=== PATIENT | male | born 1940 | race Caucasian/White ===

== ENCOUNTER 2019-10-05 11:30 | Outpatient (CLI) | payer OTHER, SELFPAY ==
[2019-10-05 12:15] LABS: Alanine Aminotransferase 26 U/L (4-50); Albumin Level 4.3 g/dL (3.5-5.1); Alkaline Phosphatase 78 U/L (38-126); Aspartate Amino Transferase 26 U/L (17-59); Bilirubin,Total 0.5 mg/dL (0.2-1.3); Blood Urea Nitrogen 22 mg/dL (9-20); Calcium 8.8 mg/dL (8.4-10.2); Carbon Dioxide 27 mmol/L (22-30); Chloride 103 mmol/L (98-107); Estimated Glomerular Filt Rate 53; Glucose 125 mg/dL (75-110); Potassium 4.5 mmol/L (3.4-5.0); Sodium 137 mmol/L (137-145)
[2019-10-05 12:59] LABS: Hemoglobin A1C 7.2 % (<5.7)
== END 2019-10-05 11:31 | disposition home or self-care (01) ==
PROVIDERS: PCP Internal Medicine; Visit Provider Nurse Practitioner
DX: R73.02 Impaired glucose tolerance (oral) (principal); N18.3 Chronic kidney disease, stage 3 (moderate)
CPT/HCPCS: 36415; 80053; 83036

== ENCOUNTER 2019-10-07 13:43 | Outpatient (CLI) | payer OTHER, SELFPAY ==
--- NOTE | ~2019-10-07 | CT_ITS ---
EXAMINATION:CT chest wo con DATE: 10/07/2019 14:34 INDICATION: Contact with and suspected exposure to asbestos. Former smoker. TECHNIQUE: Computed tomography (CT) of the chest was performed without intravenous contrast. Automate d exposure control and iterative reconstruction technique were employed. The dose-length product (DLP ) was 174.95 mGy-cm. COMPARISON: CT abdomen and pelvis 06/10/2013 FINDINGS: There is mild emphysema. There is mild scarring at the lung apices. There is mild atelectas is in the inferior lungs, left worse than right. No bronchiectasis or honeycombing. A calcified left lung nodule is consistent with old granulomatous disease. No pleural effusion. There are pleural plaq ues bilaterally, which may be seen with asbestosis exposure. The heart size is normal. There are rajat nary artery calcifications. No pericardial effusion. There is a small sliding hiatal hernia. There is an aberrant right subclavian artery. There is mild thoracic spondylosis. IMPRESSION: 1. Pleural plaques bilaterally, which may be seen with asbestos exposure. 2. Mild emphysema. 3. Small sliding hiatal hernia. Reviewed, dictated and finalized at location A.
== END 2019-10-07 13:44 | disposition home or self-care (01) ==
LOC: ANHIMG 13:44
PROVIDERS: PCP Internal Medicine; Visit Provider Nurse Practitioner
DX: Z77.090 Contact with and (suspected) exposure to asbestos (principal); R91.8 Other nonspecific abnormal finding of lung field; J43.9 Emphysema, unspecified; K44.9 Diaphragmatic hernia without obstruction or gangrene
CPT/HCPCS: 71250

== ENCOUNTER 2019-11-04 10:42 | Outpatient (CLI) | payer OTHER, SELFPAY ==
--- NOTE | 2019-11-04 15:40 | WPDPFTINT ---
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 Spirometry: FEV1 76%, 2.18 L. FVC is 76%. Both values are mildly reduced. FEV1% is 65% consistent with airflow obstruction. No bronchodilator was given. Lung volumes: TLC 98%, normal. RV is 199%, upperlimit normal. Increased RV /TLC consistent with air trapping. Extremely low ERV consistent with elevated BMI. Airway resistance is increased 293%. Diffusion: DLCO 75%, normal. Flow volume loop: Mild scooping of the expiratory limb. IMPRESSION: Mild obstructive ventilatory impairment, air trapping, increased airway resistance with normal DLCO. No bronchodilator was given. A trial of bronchodilator therapy could be considered. No old studies for comparison. Sherrill Dukes MD
== END 2019-11-04 10:43 | disposition home or self-care (01) ==
PROVIDERS: PCP Internal Medicine; Visit Provider Nurse Practitioner
DX: J61 Pneumoconiosis due to asbestos and other mineral fibers (principal); R94.2 Abnormal results of pulmonary function studies
CPT/HCPCS: 94375; 94726; 94729

== ENCOUNTER 2019-11-12 14:40 | Outpatient (CLI) | payer OTHER, SELFPAY ==
[2019-11-12 16:04] LABS: Hematocrit 45.5 % (42.0-52.0); Hemoglobin 14.9 g/dL (14.0-18.0)
[2019-11-12 16:19] LABS: Alanine Aminotransferase 30 U/L (4-50); Albumin Level 4.4 g/dL (3.5-5.1); Alkaline Phosphatase 72 U/L (38-126); Aspartate Amino Transferase 26 U/L (17-59); Bilirubin,Total 0.7 mg/dL (0.2-1.3); Blood Urea Nitrogen 23 mg/dL (9-20); Calcium 8.9 mg/dL (8.4-10.2); Carbon Dioxide 29 mmol/L (22-30); Chloride 101 mmol/L (98-107); Estimated Glomerular Filt Rate 53; Glucose 121 mg/dL (75-110); Potassium 4.8 mmol/L (3.4-5.0); Sodium 136 mmol/L (137-145)
== END 2019-11-12 14:41 | disposition home or self-care (01) ==
PROVIDERS: PCP Internal Medicine; Visit Provider Internal Medicine
DX: G25.81 Restless legs syndrome (principal); N18.3 Chronic kidney disease, stage 3 (moderate); R73.02 Impaired glucose tolerance (oral)
CPT/HCPCS: 36415; 80053; 85014; 85018

== ENCOUNTER 2020-04-18 10:19 | Outpatient (CLI) | payer OTHER, SELFPAY ==
--- NOTE | ~2020-04-18 | XR_ITS ---
EXAMINATION: XR lumbar spine 2-3V EXAM DATE: 04/18/2020 10:48 INDICATION: Low back pain. No known recent injury. TECHNIQUE: Lumber spine frontal, lateral, lateral L5-S1 projections for interpretation. There is no prior study for comparison. FINDINGS: The vertebral bodies are aligned in the AP dimension. Evidence of mild disc disease at all levels except L3-4. There are no acute fractures identified. Mild to moderate diffuse lumbar facet a rthropathy. No spondylolysis. Sacrum, sacroiliac joints, sacral arcuate lines are intact. Mild abdom inal aortic arterial sclerosis. Paraspinal soft tissue otherwise unremarkable. IMPRESSION: 1. Lumbar disc disease. 2. Mild to moderate facet arthropathy. Reviewed, dictated and finalized at location A. F INTERNIST OFFICE BASED ONLY
== END 2020-04-18 10:20 | disposition home or self-care (01) ==
LOC: ANHIMG 10:29
PROVIDERS: PCP Internal Medicine; Visit Provider Internal Medicine
DX: G89.29 Other chronic pain (principal); M51.36 Other intervertebral disc degeneration, lumbar region
CPT/HCPCS: 72100

== ENCOUNTER 2020-05-11 14:41 | Outpatient (CLI) | payer OTHER, SELFPAY ==
[2020-05-11 15:18] LABS: Cholesterol 169 mg/dL (0-200); HDL Direct 79 mg/dL; Triglycerides 226 mg/dL (<150)
[2020-05-11 15:28] LABS: LDL Cholesterol Direct 65 mg/dL
[2020-05-11 16:38] LABS: Creatinine Urine 35.6 mg/dL
[2020-05-11 16:43] LABS: Microalbumin Urine Random < 6.0 mg/L (0-16.7)
[2020-05-11 16:44] LABS: MALB Creatinine Ratio < 16.9 mg/g (0-30)
== END 2020-05-11 14:42 | disposition home or self-care (01) ==
LOC: ANHLAB 14:43
PROVIDERS: PCP Internal Medicine; Visit Provider Internal Medicine
DX: E78.5 Hyperlipidemia, unspecified (principal); E11.9 Type 2 diabetes mellitus without complications
CPT/HCPCS: 36415; 80061; 82043; 83036

== ENCOUNTER → 2020-06-08 13:26 | Outpatient (CLI) | payer OTHER, SELFPAY ==
--- NOTE | ~2020-06-08 | MR_ITS ---
EXAMINATION: MR brain/brain stem wo/w con EXAM DATE: 06/08/2020 14:59 INDICATION: Unspecified visual disturbance visual disturbance. Posterior head and neck pain. TECHNIQUE: Magnetic resonance imaging (MRI) of the brain/brain stem obtained without contrast. Sagit sharon T1, axial diffusion, gradient echo (T2*), T1, T2, FLAIR sequences obtained. Patient was then inj ected with 20 cc intravenous Multihance contrast. Axial and coronal postcontrast T1 weighted sequence s obtained. There is no prior study for comparison. FINDINGS: Small right posterior fossa arachnoid cyst anterolaterally. There are no areas of restricte d diffusion to suggest acute infarction. There is no acute hemorrhage seen on the T2*, a hemosiderin sensitive sequence. No intraparenchymal brain mass lesion. There is mild periventricular and subco rtical T2/FLAIR signal hyperintensity, nonspecific but probably related to small vessel ischemic dise ase (microangiopathy). There is ventricular prominence out of proportion to sulci which is suspecte d most likely central atrophy rather than hydrocephalus. Normal pressure hydrocephalus cannot be exc luded (clinical triad ataxia/gait disturbance, dementia, urinary incontinence). There are no extra- axial collections. Flow voids are seen in the cerebral arteries on the T2-weighted sequences consist ent with their expected patency. The orbits are unremarkable. Soft tissue is unremarkable. There a re no areas of abnormal enhancement on the postcontrast images. IMPRESSION: 1. No acute intracranial findings. 2. Dilated ventricles, probably central atrophy. NPH not excludable. 3. Mild microangiopathy. 4. Small right posterior fossa arachnoid cyst. Reviewed, dictated and finalized at location B. SALES REPRESENTATIVE
[2020-06-08 14:38] LABS: Estimated Glomerular Filt Rate 42
== END ==
PROVIDERS: PCP Internal Medicine; Visit Provider Nurse Practitioner
DX: H53.9 Unspecified visual disturbance (principal); I73.9 Peripheral vascular disease, unspecified
CPT/HCPCS: 70553; A9577

== ENCOUNTER 2020-07-19 13:20 | Outpatient (CLI) | payer OTHER, SELFPAY ==
[2020-07-19 14:16] LABS: Hematocrit 44.4 % (42.0-52.0); Hemoglobin 14.6 g/dL (14.0-18.0); Mean Corpuscular HGB Conc 32.9 g/dl (32-36); Mean Corpuscular Hemoglobin 30.9 pg (26-34); Mean Corpuscular Volume 94.1 fl (80-100); Mean Platelet Volume 10.4 fl (7.4-10.4); Platelet Count Result 209 k/mm3 (150-375); Red Blood Count 4.72 M/mm3 (4.6-6.20); Red Cell Distribution Width 12.7 % (11.5-14.5); White Blood Count 9.8 K/mm3 (4.5-10.0)
[2020-07-19 14:29] LABS: Alanine Aminotransferase 34 U/L (4-50); Albumin Level 4.1 g/dL (3.5-5.1); Alkaline Phosphatase 66 U/L (38-126); Anion Gap 4 mmol/L (8-16); Aspartate Amino Transferase 28 U/L (17-59); Bilirubin,Total 0.4 mg/dL (0.2-1.3); Blood Urea Nitrogen 20 mg/dL (9-20); Calcium 9.2 mg/dL (8.4-10.2); Carbon Dioxide 32 mmol/L (22-30); Chloride 103 mmol/L (98-107); Estimated Glomerular Filt Rate 45; Glucose 106 mg/dL (75-110); Potassium 4.5 mmol/L (3.4-5.0); Sodium 139 mmol/L (137-145)
[2020-07-19 14:30] LABS: Hemoglobin A1C 5.9 % (<5.7)
== END 2020-07-19 13:21 | disposition home or self-care (01) ==
LOC: ANHLAB 13:26
PROVIDERS: PCP Internal Medicine; Visit Provider Psychiatry & Neurology Neurology
DX: G95.9 Disease of spinal cord, unspecified (principal); E11.9 Type 2 diabetes mellitus without complications
CPT/HCPCS: 36415; 80053; 83036; 85027

== ENCOUNTER 2020-07-25 10:27 | Outpatient (CLI) | payer OTHER, SELFPAY ==
--- NOTE | ~2020-07-25 | MR_ITS ---
EXAMINATION: MR cervical spine wo con EXAM DATE: 07/25/2020 11:16 INDICATION: Neck pain, myelopathy. TECHNIQUE: Multi-sequential, multiplanar MR images of the cervical spine were obtained without contra st. Axial T2, axial T2 MERGE sequence. Sagittal T1, T2, T2 fat saturation images also obtained. Th ere is no prior study for comparison. FINDINGS: Some artifact in mid cervical spinal cord on sagittal T2-weighted sequence, no signal abno rmalities on the axial T2-weighted sequence. There is moderate loss of the C6-C7 disc height, mild at C3-4 and C5-6 and mild to moderate at C7-T1. There is 2 mm anterolisthesis C3 on C4, C4 on C5, C5 on C6, C6 on C7 and C7 on T1. There are no suspicious marrow signal abnormalities. Cervicomedullary harish ction is normal in appearance. Paraspinal soft tissue is unremarkable. Level by level evaluation: C2-C3: There is a minimal diffuse disc bulge. Uncovertebral joint arthropathy: Mild bilateral. Facet joint arthropathy: Moderate bilateral. Neural foraminal stenosis: Mild right. Central canal stenosis: No stenosis. C3-C4: There is a mild diffuse disc bulge. Uncovertebral joint arthropathy: Mild to moderate bilateral. Facet joint arthropathy: Moderate to severe right, moderate left. Neural foraminal stenosis: Severe right, mild to moderate left. Central canal stenosis: Mild. C4-C5: There is a mild diffuse disc bulge. Uncovertebral joint arthropathy: Mild to moderate bilateral. Facet joint arthropathy: Moderate to severe bilateral. Neural foraminal stenosis: Moderate to severe right, moderate left. Central canal stenosis: Mild. C5-C6: There is a mild to moderate diffuse disc bulge. Uncovertebral joint arthropathy: Moderate left, mild to moderate right. Facet joint arthropathy: Moderate to severe bilateral. Neural foraminal stenosis: Moderate bilateral. Central canal stenosis: Mild. C6-C7: There is a mild to moderate diffuse disc bulge. Uncovertebral joint arthropathy: Moderate bilateral. Facet joint arthropathy: Moderate bilateral. Neural foraminal stenosis: Moderate to severe left, mild to moderate right. Central canal stenosis: Mild. C7-T1: There is a mild diffuse disc bulge. Uncovertebral joint arthropathy: Moderate left, mild to moderate right. Facet joint arthropathy: Moderate bilateral. Neural foraminal stenosis: No stenosis. Central canal stenosis: No stenosis. IMPRESSION: Significant arthropathy causing multilevel neural foraminal stenosis, particularly on the right at C3-4 and C4-5. Reviewed, dictated and finalized at location A. IMPRESSION: Significant arthropathy causing multilevel neural foraminal stenosi s, particularly on the right at C3-4 and C4-5.
== END 2020-07-25 10:28 ==
PROVIDERS: PCP Internal Medicine; Visit Provider Psychiatry & Neurology Neurology
DX: G95.9 Disease of spinal cord, unspecified (principal)
CPT/HCPCS: 72141

== ENCOUNTER 2020-07-28 09:39 | Outpatient (CLI) | payer OTHER, SELFPAY ==
--- NOTE | 2020-07-28 11:30 | NEURO_ITS ---
Impression: # Complains of weakness. # No Carpal Tunnel Syndrome. # No ulnar neuropathy. #Normal nerve conduction study including motor and sensory nerves. # Normal needle/EMG exam with no neurogenic changes or myotonia noted. # Clinical correlation recommended. Nerve Conduction Studies Anti Sensory Summary Table Stim Site NR Peak (ms) P-T Amp (?V) Site1 Site2 Delta-P (ms) Dist (cm) Yang (m/s) Left Median Anti Sensory (2-3nd Digit) Wrist 3.4 11.2 Wrist 2-3nd Digit 3.4 14.0 41 Wrist 3.4 20.7 Wrist 2-3nd Digit 3.4 14.0 41 Right Median Anti Sensory (2-3nd Digit) Wrist 3.4 80.8 Wrist 2-3nd Digit 3.4 14.0 41 Wrist 3.3 57.4 Wrist 2-3nd Digit 3.4 14.0 41 Left Radial Anti Sensory (Base 1st Digit) Wrist 2.4 6.6 Wrist Base 1st Digit 2.4 0.0 Right Radial Anti Sensory (Base 1st Digit) Wrist 3.6 12.5 Wrist Base 1st Digit 3.6 0.0 Left Ulnar Anti Sensory (5th Digit) Wrist 3.2 15.5 Wrist 5th Digit 3.2 14.0 44 Right Ulnar Anti Sensory (5th Digit) Wrist 3.0 23.3 Wrist 5th Digit 3.0 14.0 47 Motor Summary Table Stim Site NR Onset (ms) O-P Amp (mV) Site1 Site2 Delta-0 (ms) Dist (cm) Yang (m/s) Left Median Motor (Abd Poll Brev) Wrist 4.1 2.7 Elbow Wrist 5.5 29.0 53 Elbow 9.6 2.3 Right Median Motor (Abd Poll Brev) Wrist 3.6 6.0 Elbow Wrist 5.4 28.0 52 Elbow 9.0 5.4 Left Ulnar Motor (Abd Dig Minimi) Wrist 3.2 6.4 A Elbow Wrist 6.1 33.0 54 A Elbow 9.3 4.4 Right Ulnar Motor (Abd Dig Minimi) Wrist 3.0 5.9 A Elbow Wrist 5.8 30.0 52 A Elbow 8.8 4.3 F Wave Studies NR F-Lat (ms) L-R F-Lat (ms) Left Median (Mrkrs) (Abd Poll Brev) 30.49 1.00 Right Median (Mrkrs) (Abd Poll Brev) 31.49 1.00 Left Ulnar (Mrkrs) (Abd Dig Min) 32.99 1.22 Right Ulnar (Mrkrs) (Abd Dig Min) 31.78 1.22 EMG Side Muscle Nerve Root Ins Act Fibs Amp Dur Recrt Comment Right 1stDorInt Ulnar C8-T1 Nml Nml Nml Nml Nml Right Ext Indicis Radial (Post Int) C7-8 Nml Nml Nml Nml Nml Right Ext Digitorum Radial (Post Int) C7-8 Nml Nml Nml Nml Nml Right BrachioRad Radial C5-6 Nml Nml Nml Nml Nml Right PronatorTeres Median C6-7 Nml Nml Nml Nml Nml Right Abd Poll Brev Median C8-T1 Nml Nml Nml Nml Nml Left 1stDorInt Ulnar C8-T1 Nml Nml Nml Nml Nml Left Ext Indicis Radial (Post Int) C7-8 Nml Nml Nml Nml Nml Left Ext Digitorum Radial (Post Int) C7-8 Nml Nml Nml Nml Nml Left BrachioRad Radial C5-6 Nml Nml Nml Nml Nml Left PronatorTeres Median C6-7 Nml Nml Nml Nml Nml Left Abd Poll Brev Median C8-T1 Nml Nml Nml Nml Nml MTDD
== END 2020-07-28 09:40 | disposition home or self-care (01) ==
LOC: ANHNEURO 09:40
PROVIDERS: PCP Internal Medicine; Visit Provider Psychiatry & Neurology Neurology
DX: G95.9 Disease of spinal cord, unspecified (principal)
CPT/HCPCS: 95886; 95911

== ENCOUNTER 2020-11-14 14:52 | Outpatient (CLI) | payer OTHER, SELFPAY ==
[2020-11-14 16:41] LABS: Alanine Aminotransferase 22 U/L (4-50); Albumin Level 4.1 g/dL (3.5-5.1); Alkaline Phosphatase 59 U/L (38-126); Anion Gap 8 mmol/L (8-16); Aspartate Amino Transferase 25 U/L (17-59); Bilirubin,Total 0.4 mg/dL (0.2-1.3); Blood Urea Nitrogen 23 mg/dL (9-20); Carbon Dioxide 27 mmol/L (22-30); Chloride 104 mmol/L (98-107); Cholesterol 147 mg/dL (0-200); Estimated Glomerular Filt Rate 49; Glucose 115 mg/dL (75-110); HDL Direct 61 mg/dL; Potassium 4.4 mmol/L (3.4-5.0); Sodium 139 mmol/L (137-145); Triglycerides 133 mg/dL (<150)
[2020-11-14 16:52] LABS: LDL Cholesterol Direct 56 mg/dL
[2020-11-14 19:15] LABS: Hemoglobin A1C 6.2 % (<5.7)
== END 2020-11-14 14:53 | disposition home or self-care (01) ==
PROVIDERS: PCP Internal Medicine; Visit Provider Nurse Practitioner
DX: R73.02 Impaired glucose tolerance (oral) (principal); E78.5 Hyperlipidemia, unspecified
CPT/HCPCS: 36415; 80053; 80061; 83036

== ENCOUNTER → 2021-03-28 01:54 | Outpatient (CLI) | payer OTHER, SELFPAY ==
[2021-03-28 17:56] LABS: SARS-CoV-2 RNA PCR Negative
== END ==
PROVIDERS: PCP Internal Medicine; Visit Provider Internal Medicine
DX: R68.89 Other general symptoms and signs (principal); Z20.822 Contact with and (suspected) exposure to COVID-19
CPT/HCPCS: C9803; U0003; U0005

== ENCOUNTER 2021-06-12 13:47 | Outpatient (CLI) | payer OTHER, SELFPAY ==
[2021-06-12 15:33] LABS: LDL Cholesterol Direct 62 mg/dL
[2021-06-12 17:21] LABS: Hemoglobin A1C 6.1 % (<5.7)
[2021-06-12 17:22] LABS: Alanine Aminotransferase 31 U/L (4-50); Albumin Level 4.2 g/dL (3.5-5.1); Alkaline Phosphatase 76 U/L (38-126); Anion Gap 5 mmol/L (8-16); Aspartate Amino Transferase 26 U/L (17-59); Bilirubin,Total 0.5 mg/dL (0.2-1.3); Blood Urea Nitrogen 21 mg/dL (9-20); Calcium 9.3 mg/dL (8.4-10.2); Carbon Dioxide 28 mmol/L (22-30); Chloride 103 mmol/L (98-107); Cholesterol 157 mg/dL (0-200); Estimated Glomerular Filt Rate 53; Glucose 56 mg/dL (65-110); HDL Direct 53 mg/dL; Potassium 4.2 mmol/L (3.4-5.0); Sodium 136 mmol/L (137-145); Triglycerides 195 mg/dL (<150)
== END 2021-06-12 13:48 | disposition home or self-care (01) ==
PROVIDERS: PCP Internal Medicine; Visit Provider Nurse Practitioner
DX: R73.02 Impaired glucose tolerance (oral) (principal); E78.5 Hyperlipidemia, unspecified; N18.30 Chronic kidney disease, stage 3 unspecified
CPT/HCPCS: 36415; 80053; 80061; 83036

== ENCOUNTER 2021-12-11 14:48 | Outpatient (CLI) | payer OTHER, SELFPAY ==
[2021-12-11 15:27] LABS: Hemoglobin A1C 6.1 % (<5.7)
[2021-12-11 15:35] LABS: Alanine Aminotransferase 36 U/L (6-50); Albumin Level 4.4 g/dL (3.5-5.1); Alkaline Phosphatase 91 U/L (38-126); Aspartate Amino Transferase 27 U/L (17-59); Bilirubin,Total 0.6 mg/dL (0.2-1.3); Blood Urea Nitrogen 19 mg/dL (9-20); Calcium 9.3 mg/dL (8.4-10.2); Chloride 98 mmol/L (98-107); Cholesterol 147 mg/dL (0-200); Estimated Glomerular Filt Rate 45; Glucose 89 mg/dL (65-110); HDL Direct 58 mg/dL; Potassium 4.5 mmol/L (3.4-5.0); Sodium 137 mmol/L (137-145); Triglycerides 163 mg/dL (<150)
[2021-12-11 15:39] LABS: LDL Cholesterol Direct 52 mg/dL
[2021-12-11 15:44] LABS: Anion Gap 10 mmol/L (8-16); Carbon Dioxide 29 mmol/L (22-30)
== END 2021-12-11 14:49 | disposition home or self-care (01) ==
LOC: ANHLAB 14:51
PROVIDERS: PCP Internal Medicine; Visit Provider Internal Medicine
DX: R73.02 Impaired glucose tolerance (oral) (principal); E78.5 Hyperlipidemia, unspecified; N18.30 Chronic kidney disease, stage 3 unspecified
CPT/HCPCS: 36415; 80053; 80061; 83036

== ENCOUNTER 2022-07-01 11:29 | Inpatient (IN) | payer OTHER, SELFPAY ==
[2022-07-01] VITALS (18 sets, daily range): BP systolic 167–186; BP diastolic 69–109; PULSE 105–121; RESP 19–27; TEMP 36.2–38.4; O2SAT 92–100; BMI 31.8
--- NOTE | ~2022-07-01 | XR_ITS ---
XR chest 1V portable DATE: 07/01/2022 12:24 INDICATION: Cough TECHNIQUE: Portable AP chest on July 01, 2022 at 1221 hours COMPARISON: CT chest 04/23/2018 two-view chest FINDINGS: Cardiomegaly. Aortic arch calcification and mild aortic tortuosity. No hilar or mediastinal enlargement. Mild bilateral apical capping. Mild infiltrate or atelectasis is suggested in the lower lung zones, left greater than right. IMPRESSION: Mild infiltrate or atelectasis in the lower lung zones, left greater than right Reviewed, dictated and finalized at location A. RAFT LIFE SUPPORT FITTER IMPRESSION: Mild infiltrate or atelectasis in the lower lung zones, left greate r than right
--- NOTE | ~2022-07-01 | CT_ITS ---
EXAMINATION: CTA chest PE protocol DATE: 07/01/2022 15:36 INDICATION: dyspnea TECHNIQUE: Computed tomography angiography (CTA) of the chest was performed with 100 mL Omnipaque-350 intravenous contrast timed to evaluate the pulmonary arteries. Coronal maximum intensity projection 3D-reconstructions were created by the technologist. The dose-length product (DLP) was 1048.89 mGy-cm . Automated exposure control and iterative reconstruction technique were employed. COMPARISON: None. FINDINGS: Lung parenchyma and airways: Moderate motion artifact. Bibasilar atelectasis. Atelectasis/scar in the anterior left lower lobe. Pleura: Unremarkable. Thoracic inlet, axillae and chest wall: Minimal bilateral gynecomastia. Thoracic aorta: Right common carotid artery origin directly off the arch. Aberrant right subclavian v ein. Mild arch calcification. Mild ectasia. Mediastinum: Large hiatal hernia. Heart and pericardium: Mild cardiomegaly mild aortic and mitral valve calcification. Coronary artery calcifications: Mild. Upper abdomen: No significant finding. Bones: No acute osseous finding. Pulmonary arteries: Study quality: Degraded by beam hardening from arm positioning and significant mo tion, such that subsegmental and non-occlusive segmental emboli could be missed. No pulmonary emboli detected. IMPRESSION: Limited examination such that subsegmental and nonocclusive segmental emboli could be missed. No cent ral or occlusive segmental emboli detected. No acute process detected in the chest. Reviewed, dictated and finalized at location K. LLMENT MANAGEMENT DIRECTOR IMPRESSION: Limited examination such that subsegmental and nonocclusive segmental emboli co uld be missed. No central or occlusive segmental emboli detected. No acute proc ess detected in the chest.
--- NOTE | ~2022-07-01 | US_ITS ---
EXAMINATION:US venous doppler LE BI INDICATION:Bilateral ankle edema TECHNIQUE: Multiple grayscale, color flow and Doppler images of the right and left lower extremity de ep venous systems were obtained and reviewed. COMPARISON:No prior studies for comparison. FINDINGS: The common femoral, superficial femoral and popliteal veins demonstrate normal respiratory variation, augmentation and compressibility. Color flow is also seen within the posterior tibial, pe roneal, greater saphenous and profunda veins. IMPRESSION: 1: No lower extremity deep venous thrombosis. Reviewed, dictated and finalized at location B. FIELD SERVICE TECHNICIAN
--- NOTE | 2022-07-01 11:31 | ECG_ITS ---
Measurements Intervals [place] Rate: 121 P: 56 [place]: 152 QRS: 18 QRSD: 85 T: 40 QT: 301 QTc: 427 Interpretive Statements SINUS TACHYCARDIA WITH OCCASIONAL SUPRAVENTRICULAR PREMATURE COMPLEXES POSSIBLE RIGHT VENTRICULAR CONDUCTION DELAY [RSR (QR) IN V1/V2] ABNORMAL RHYTHM ECG NO PREVIOUS ECG AVAILABLE FOR COMPARISON Electronically Signed On 07-02-2022 7:07:03 SOFTWARE PERFORMANCE ENGINEER by Venkatesh Walton M.D.
[2022-07-01 12:01] LABS: Alveolar/Arterial O2 Gradient 36.8 mmHg; Base Excess ABG 1.5 mEq/l (+/-2.0); Carboxyhemoglobin 1.2 % THb (0-2.0); Fractional Inspired Oxygen 21 %; HCO3 ABG 26.1 mEq/l (22.0-26.0); Methemoglobin ABG 0.4 %THb (0-1.5); Oxygen Content ABG 17.6 %vol (16.0-22.0); Oxygen Saturation ABG 92.8 % (95.0-100.0); Oxyhemoglobin 90.9 % THb (90.0-100.0); PO2 ABG 63.8 mmHg (80.0-100.0); PO2 FiO2 Ratio Arterial Blood 3.04 %; Reduced Hemoglobin 7.5 %THb (0-5.0); Total Hemoglobin 13.8 g/dL (12.0-18.0); pH ABG 7.421 (7.350-7.450)
[2022-07-01 12:02] LABS: Basophils Absolute Auto 0.1 K/mm3 (0.0-0.1); Basophils Percent Auto 0.4 % (0.2-1.2); Eosinophils Absolute Auto 0.1 K/mm3 (0-0.3); Eosinophils Percent Auto 1.1 % (0-4.4); Hematocrit 40.2 % (42.0-52.0); Hemoglobin 13.1 g/dL (14.0-18.0); Immature Granulocyte Percent A 0.8 % (0-0.5); Lymphocytes Percent Auto 7.7 % (18.3-44.2); Mean Corpuscular HGB Conc 32.6 g/dl (32-36); Mean Corpuscular Hemoglobin 30.4 pg (26-34); Mean Corpuscular Volume 93.3 fl (80-100); Mean Platelet Volume 10.6 fl (7.4-10.4); Monocytes Absolute Auto 1.5 K/mm3 (0.1-0.6); Monocytes Percent Auto 11.1 % (2.6-8.5); Neutrophils Absolute Auto 10.3 K/mm3 (1.3-6.7); Neutrophils Percent Auto 78.9 % (45.5-73.1); Platelet Count Result 204 k/mm3 (150-375); Red Blood Count 4.31 M/mm3 (4.6-6.20); Red Cell Distribution Width 13.9 % (11.5-14.5); White Blood Count 13.1 K/mm3 (4.5-10.0)
[2022-07-01 12:14] LABS: Alanine Aminotransferase 34 U/L (6-50); Albumin Level 4.4 g/dL (3.5-5.1); Alkaline Phosphatase 92 U/L (38-126); Anion Gap 5 mmol/L (8-16); Aspartate Amino Transferase 27 U/L (17-59); Bilirubin,Total 0.7 mg/dL (0.2-1.3); Blood Urea Nitrogen 28 mg/dL (9-20); Calcium 8.6 mg/dL (8.4-10.2); Carbon Dioxide 29 mmol/L (22-30); Chloride 100 mmol/L (98-107); Estimated CRCL calculation 45 ml/min; Estimated Glomerular Filt Rate 45; Glucose 125 mg/dL (65-110); Potassium 4.4 mmol/L (3.4-5.0); Sodium 134 mmol/L (137-145)
[2022-07-01 12:15] LABS: INR 1.1
[2022-07-01 12:16] LABS: Partial Thromboplastin Time 32.1 SECONDS (22.3-36.8)
[2022-07-01 12:19] LABS: Modified Allen's Test Pass; Site Drawn RIGHT RADIAL
[2022-07-01] MEDS: SODIUM CHLORIDE 0.9% IV 1,000 ML 999 ML IV CONT (12:19)
[2022-07-01 12:20] LABS: Device BIPAP; Expiratory Pressure 5 cmH2O; Inspiratory Pressure 10 cmH2O
[2022-07-01 12:25] LABS: NT Pro B Type Natriuretic Pept 316 pg/mL (19.9-100); Troponin I < 0.012 ng/mL (0.000-0.034)
--- NOTE | 2022-07-01 12:42 | ED.GENADULT ---
HPI - General Adult General Chief complaint: Shortness of Breath/Dyspnea Stated complaint: resp distress Source: RN notes reviewed History of Present Illness HPI narrative: Patient presents emergency department from home for shortness of breath patient states has been feeling short of breath for the past several days patient does arrive in moderate respiratory distress. Per EMS they were initially called out for generalized weakness the patient had been too weak to get up today when they arrived the patient was noted to be in respiratory distress with diffuse wheezing throughout the bilateral lung dobbs he initially been given a breathing treatment and Solu-Medrol followed by magnesium with increased work of breathing was placed on a CPAP in route. Patient states he has had a cough this been nonproductive he denies any fevers or chills but is noted to have a fever in the emergency department. He denies any chest pain abdominal pain nausea or vomiting Related Data Home Medications Medication Instructions Recorded Confirmed ascorbic acid (vitamin C) 500 mg mg PO 10/05/21 05/07/22 capsule cholecalciferol (vitamin D3) 125 125 mcg PO DAILY 10/05/21 05/07/22 mcg (5,000 unit) capsule zinc acetate 50 mg (zinc) capsule 50 mg PO DAILY 10/05/21 05/07/22 Allergies Allergy/AdvReac Type Severity Reaction Status Date / Time metformin AdvReac Severe Dizziness Verified 05/04/22 13:18 and incoherent Review of Systems Review of Systems: Gen.: Denies fevers or chills ENT: Denies congestion Respiratory: See HPI CV: Denies chest pain or palpitations GI: Denies abdominal pain nausea, emesis or diarrhea Musculoskeletal: Denies back pain or muscle pain Neuro: Ports generalized weakness Skin: Denies rash Except as documented, all other systems reviewed and negative [facility] Past Medical History Medical History Benign positional vertigo Benign prostatic hyperplasia with lower urinary tract symptoms Chronic kidney disease, stage 3 Chronic neck pain Chronic obstructive pulmonary disease Exposure to asbestos Gastroesophageal reflux disease Hyperlipidemia Impaired glucose tolerance Polyarthritis Pulmonary asbestosis Restless legs syndrome Type 2 diabetes mellitus Surgical History Surgical History (Updated 07/01/22 @ 16:18 by Leah Chairez PA-C) History of hernia repair Family History Family History Mother Family history of malignant neoplasm Patient's mother is Father Family history of malignant neoplasm Patient's father is Social History Social History Social History: Surrogate medical decision maker: Krunal Leal, son. Code status: Full code. Smoking packs per day: 1 Smoking cigarettes per day: 20.0 Years smoked: 15 Smoking pack-years: 15.00 Smoking status: Former smoker Tobacco type: cigarettes Second hand tobacco smoke exposure: No Smoking end date: 05/06/86 Alcohol intake: current Alcohol use details: Social alcohol use in moderation. Substance use: never Substance use type: does not use Lack of Transportation: No Lack of Food: Never True Current Housing: I Have Housing Concerned About Future Housing: No Difficulty Paying Gas/Electric Bills: YES Difficulty Paying for Meds: No Currently Unemployed: No Education: High School Diploma/GED Difficulty w/ Childcare or Family Care: Decline to Answer Additional living arrangements comments: Lives in [place] with significant other. Additional occupation/education comments: Retired. Exam Narrative: APPEARANCE: Moderate respiratory distress sitting upright in bed EYES: PERRL HEENT: Normocephalic, atraumatic, OMM RESPIRATORY: Moderate*distress, speaking in short phrases wheezing upper lung field
[2022-07-01 12:48] LABS: Appearance Urine Cloudy (Clear); Bacteria Urine None Seen /hpf; Bilirubin Urine Negative (Negative); Blood Urine Negative (Negative); Color Urine Yellow (Yellow); Glucose Urine UA Negative (Negative); Ketones Urine Negative (Negative); Leukocyte Esterase Ur Negative LEU/UL (Negative); Nitrate Urine Negative (Negative); Non Pathogenic Casts 0-2; Protein Urine Trace mg/dL (Negative); RBC Urine 0-2 /hpf (0-2); Specific Grav Ur 1.017 (1.001-1.035); Squamous Epithelial Cell Urine None seen /hpf (Few); WBC Urine 0-5 /hpf; pH Urine 7.5 (5.0-9.0)
[2022-07-01 12:53] LABS: Influenza A QL RT-PCR Negative (Negative); Influenza B QL RT-PCR Negative (Negative); RSV RNA, RT-PCR Negative (Negative); SARS-CoV-2 RNA PCR Positive
[2022-07-01 13:03] LABS: Add Urine Microscopic? YES
--- NOTE | 2022-07-01 14:16 | PC.NURSE ---
Please call [facility] (pts live in girlfriend) w/ any updates and room assignment. [phone]
--- NOTE | 2022-07-01 15:28 | PC.NURSE ---
Pt to CT scan via stretcher.
--- NOTE | 2022-07-01 15:55 | PM.IMHP ---
H&P: HPI History of Present Illness Date/Time: 07/01/22 15:55 Chief Complaint: Shortness of breath and weakness. Narrative: This is an 82-year-old male with take diabetes, COPD GERD, BPH, chronic kidney disease, and history of asbestos exposure who presented to the emergency department via EMS from home for evaluation of shortness of breath and weakness. He seems to be a bit confused as to why he was brought here today and while he does provide some history some of the following is supplemented via a review of his EMR and from discussions with his son and significant other. He has been complaining of shortness of breath for the last day or so and has had a nonproductive cough. This morning he was very weak and he could not even get himself to stand up. Significant other called 911 as she was afraid he may have had a stroke. On EMS arrival and in the ED his stroke scale was 0. He seemed to be quite short of breath and he was placed on CPAP by EMS. Transition to BiPAP on arrival with stable SpO2. Temperature was 101.2? on arrival. Blood pressures have been steadily in the 170s systolic. He is mildly tachycardic and tachypneic. White blood cell count was elevated at 13.1 and the remainder of his labs are stable when compared to previous draws. He did test positive for SARS-CoV-2 by PCR. Patient tells me this is either the 3rd or 4th time having it despite the fact that he has been vaccinated and boosted. Chest x-ray showed mild infiltrate or atelectasis in the lower lung zones and this correlates with findings noted on CTA of the chest. Exam was limited by moderate motion artifact but no central or occlusive segmental emboli was detected. At the time my evaluation he is resting comfortably on BiPAP and would like to trial off of that. She has no specific complaints. He endorses a nonproductive cough and some shortness of breath as above. He denies fever, chills, sweats, headache, sinus congestion, sore throat, chest and pleuritic pain, palpitations, nausea, vomiting, and diarrhea. Review of Systems Review of Systems: Twelve systems were reviewed and are negative except for as per HPI. FOR[facility]LY [facility], [facility] Past Medical History Medical History Benign positional vertigo Benign prostatic hyperplasia with lower urinary tract symptoms Chronic kidney disease, stage 3 Chronic neck pain Chronic obstructive pulmonary disease Exposure to asbestos Gastroesophageal reflux disease Hyperlipidemia Impaired glucose tolerance Polyarthritis Pulmonary asbestosis Restless legs syndrome Type 2 diabetes mellitus Surgical History Surgical History History of hernia repair Family History Family History Mother Family history of malignant neoplasm Patient's mother is Father Family history of malignant neoplasm Patient's father is Social History Social History Social History: Surrogate medical decision maker: Krunal Leal, son. Code status: Full code. Smoking packs per day: 1 Smoking cigarettes per day: 20.0 Years smoked: 15 Smoking pack-years: 15.00 Smoking status: Former smoker Tobacco type: cigarettes Second hand tobacco smoke exposure: No Smoking end date: 05/06/86 Alcohol intake: current Drinks per week: 10 Alcohol use details: Social alcohol use in moderation. Substance use: never Substance use type: does not use Lack of Transportation: No Lack of Food: Never True Current Housing: I Have Housing Concerned About Future Housing: No Difficulty Paying Gas/Electric Bills: YES Difficulty Paying for Meds: No Currently Unemployed: No Education: High School Diploma/GED Difficulty w/ Childcare or Family Care: Decline to Answer Additional living arrangements co
[2022-07-01 16:13] LABS: Troponin I < 0.012 ng/mL (0.000-0.034)
--- NOTE | 2022-07-01 18:43 | ADMGEN ---
This patient, Krunal Leal, was admitted to IMU Room 204-01. Patient/family oriented to hospital policies and general routines including ID bracelet, bed and alarms, visiting hours, pain management, procedures, bathroom and other care routines, personal items, smoking policy, room service/diet, and visiting hours. Information on how to activate the Rapid Response Team has been discussed. Patient/Family are encouraged to report perceived risks to care and to ask questions if they do not understand what they are told or what they should do.
[2022-07-01] MEDS: SODIUM CHLORIDE 0.9% IV 1,000 ML 80 ML IV CONT (19:00)
[2022-07-01 20:45] LABS: Troponin I < 0.012 ng/mL (0.000-0.034)
[2022-07-01] MEDS: REMDESIVIR 200 MG/NS 250 ML 200 MG/250 ML BAG 250 MG IVPB (23:59)
[2022-07-02] VITALS (14 sets, daily range): BP systolic 119–180; BP diastolic 60–82; PULSE 72–108; RESP 4–20; TEMP 36–36.6; O2SAT 92–99
[2022-07-02 04:51] LABS: Basophils Percent Auto 0.2 % (0.2-1.2); Hematocrit 39.6 % (42.0-52.0); Hemoglobin 12.6 g/dL (14.0-18.0); Immature Granulocyte Absolute 0.14 K/mm3 (0.00-0.031); Immature Granulocyte Percent A 0.9 % (0-0.5); Lymphocytes Absolute Auto 0.84 K/mm3 (0.9-3.2); Lymphocytes Percent Auto 5.1 % (18.3-44.2); Mean Corpuscular HGB Conc 31.8 g/dl (32-36); Mean Corpuscular Hemoglobin 30.3 pg (26-34); Mean Corpuscular Volume 95.2 fl (80-100); Mean Platelet Volume 10.6 fl (7.4-10.4); Neutrophils Absolute Auto 14.5 K/mm3 (1.3-6.7); Neutrophils Percent Auto 87.8 % (45.5-73.1); Platelet Count Result 213 k/mm3 (150-375); Red Blood Count 4.16 M/mm3 (4.6-6.20); Red Cell Distribution Width 13.9 % (11.5-14.5); White Blood Count 16.5 K/mm3 (4.5-10.0)
[2022-07-02 05:07] LABS: Alanine Aminotransferase 29 U/L (6-50); Albumin Level 3.9 g/dL (3.5-5.1); Alkaline Phosphatase 74 U/L (38-126); Anion Gap 6 mmol/L (8-16); Aspartate Amino Transferase 23 U/L (17-59); Bilirubin,Total 0.5 mg/dL (0.2-1.3); Blood Urea Nitrogen 25 mg/dL (9-20); Calcium 8.1 mg/dL (8.4-10.2); Carbon Dioxide 25 mmol/L (22-30); Chloride 102 mmol/L (98-107); Estimated CRCL calculation 54 ml/min; Estimated Glomerular Filt Rate 58; Glucose 195 mg/dL (65-110); Magnesium 2.1 mg/dL (1.6-2.3); Potassium 4.3 mmol/L (3.4-5.0); Sodium 133 mmol/L (137-145)
[2022-07-02 06:57] LABS: INR 1.2; Prothrombin Time 14.4 Seconds (11.1-14.7)
[2022-07-02 08:10] LABS: Glucose Point of Care 164 mg/dl (65-105)
[2022-07-02] MEDS: UMECLIDINIUM BROMIDE 62.5 MCG ELLIPTA 1 PUFF INHALATION (09:20)
[2022-07-02] MEDS: FAMOTIDINE 20 MG TABLET PO (09:21)
[2022-07-02] MEDS: ASCORBIC ACID 500 MG TABLET PO (09:21)
[2022-07-02] MEDS: PANTOPRAZOLE 40 MG TABLET PO ×2 (09:22→17:44)
[2022-07-02] MEDS: ENOXAPARIN 40 MG/0.4 ML SYRINGE SUB-Q (09:22)
[2022-07-02] MEDS: glipiZIDE 5 MG TABLET PO (09:22)
[2022-07-02] MEDS: CHOLECALCIFEROL 1,000 UNITS TABLET 5000 UNITS PO (09:22)
[2022-07-02] MEDS: DEXAMETHASONE 2 MG TABLET 6 MG PO (09:23)
[2022-07-02] MEDS: TAMSULOSIN HCL 0.4 MG CAPSULE PO (09:25)
[2022-07-02] MEDS: ZINC SULFATE 220 MG CAPSULE PO (09:26)
[2022-07-02] MEDS: guaiFENesin 12 HR 600 MG TABCR 1200 MG PO ×2 (11:30→21:16)
[2022-07-02 12:26] LABS: Glucose Point of Care 109 mg/dl (65-105)
--- NOTE | 2022-07-02 14:15 | PCCCNOTE ---
On 07/02/22, the student, [Deborah Ortiz ], provided care and [facility]. I have reviewed the student's documentation and agree with the findings.
[2022-07-02 15:33] LABS: D Dimer 0.87 ug/mL (<0.48)
[2022-07-02 15:37] LABS: CRP 7.1 mg/dL (<1.0)
--- NOTE | 2022-07-02 15:48 | PM.IMPN ---
Progress Note: A&P Assessment and Plan (1) COVID-19: Code(s): U07.1 - COVID-19 Status: Acute Assessment and Plan: Supportive care, continue remdesivir and dexamethasone Check CRP, D-dimer CTA and Dopplers negative, no signs of pneumonia, PE or atelectasis noted Blood cultures ordered and pending Chest x-ray shows mild infiltrate or atelectasis of the lower lung zones, left greater than right (2) Acute respiratory failure with hypoxia: Code(s): J96.01 - Acute respiratory failure with hypoxia Status: Acute Assessment and Plan: Wean as tolerated, home O2 eval may be needed prior to discharge Started on azithromycin Rocephin for possible community-acquired pneumonia, do not suspect bacterial infectious etiology will discontinue tomorrow if patient continues to show no signs of superimposed infection (3) Gastroesophageal reflux disease: Code(s): K21.9 - Gastro-esophageal reflux disease without esophagitis Status: Acute Assessment and Plan: Continue famotidine (4) Chronic kidney disease, stage 3: Code(s): N18.30 - Chronic kidney disease, stage 3 unspecified Status: Acute Assessment and Plan: Stable, appears to be at baseline, creatinine 1.2 (5) Chronic obstructive pulmonary disease: Code(s): J44.9 - Chronic obstructive pulmonary disease, unspecified Status: Acute Assessment and Plan: Stable, continue dexamethasone and breathing treatments as needed Plan DVT prophylaxis with Lovenox GI prophylaxis with PPI Code status full code Subjective Date/time seen: 07/02/22 15:48 Interval history: No overnight events noted. No chest pain or shortness of breath. No nausea, vomiting or diarrhea. No fevers or chills. Patient states he feels much better today than he did when he came in. Review of Systems Review of Systems: 12 point review of systems was assessed and was negative except as noted in the HPI Exam Narrative: General: No acute distress, alert and oriented per baseline comfortable on 2 L HEENT: Atraumatic, normocephalic, mucous membranes moist CV: Regular rate and rhythm, S1, S2 Lungs: Scattered fine crackles throughout, diminished at bases, moderate air entry Abdomen: Soft, nontender, nondistended Extremities: Normal to inspection Skin: No rashes noted, no lesions or wounds seen Psych: Euthymic, normal affect Objective Data Vital Signs Vital Signs: Vital Signs - 24 hr 02/26/23 16:07 07/01/22 18:01 07/01/22 18:33 Temperature 99.0 F Pulse Rate 108 H 105 H 109 H Respiratory Rate 21 H 20 23 H Blood Pressure 167/84 H 176/98 H Pulse Oximetry 94 98 99 Oxygen Delivery BiPAP Oxygen Flow Rate Fraction of Inspired Oxygen 07/01/22 18:45 07/01/22 18:58 07/01/22 20:00 Temperature 98.0 F 97.7 F Pulse Rate 111 H 112 H Respiratory Rate 25 H 20 Blood Pressure 172/97 H 169/82 H Pulse Oximetry 100 100 96 Oxygen Delivery BiPAP Oxygen Flow Rate Fraction of Inspired Oxygen 07/01/22 20:00 07/01/22 20:00 07/01/22 22:00 Temperature Pulse Rate 112 H 117 H 108 H Respiratory Rate 20 Blood Pressure Pulse Oximetry 96 Oxygen Delivery BiPAP Oxygen Flow Rate Fraction of Inspired Oxygen 07/01/22 23:30 07/01/22 23:50 07/02/22 00:00 Temperature 97.1 F L Pulse Rate 106 H 106 H 108 H Respiratory Rate 24 H 20 Blood Pressure 184/97 H Pulse Oximetry 97 98 Oxygen Delivery BiPAP Oxygen Flow Rate Fraction of Inspired Oxygen 07/02/22 00:00 07/02/22 02:43 07/02/22 03:47 Temperature 97.5 F L Pulse Rate 108 H 103 H 90 Respiratory Rate 20 4 L 20 Blood Pressure 180/75 H Pulse Oximetry 98 98 92 Oxygen Delivery BiPAP BiPAP Oxygen Flow Rate Fraction of Inspired Oxygen 07/02/22 02:00 07/02/22 04:00 07/02/22 04:00 Temperature Pulse Rate 84 94 85 Respiratory Rate 20 Blood Pressure Pulse Oximetry 92
[2022-07-02 17:27] LABS: Glucose Point of Care 130 mg/dl (65-105)
--- NOTE | 2022-07-02 18:40 | PC.NURSE ---
Received from [facility] / via wheelchair.
--- NOTE | 2022-07-02 19:03 | PC.NURSE ---
This patient, Krunal Leal, was transferred to [facility] on 07/02/22 at 1818. Personal belongings sent with patient. Report given to Dena DAMON. Appropriate documentation sent with patient.
[2022-07-02 19:40] LABS: Basophils Percent Auto 0.2 % (0.2-1.2); Hematocrit 39.5 % (42.0-52.0); Hemoglobin 12.5 g/dL (14.0-18.0); Immature Granulocyte Absolute 0.12 K/mm3 (0.00-0.031); Immature Granulocyte Percent A 0.6 % (0-0.5); Lymphocytes Absolute Auto 1.02 K/mm3 (0.9-3.2); Lymphocytes Percent Auto 5.4 % (18.3-44.2); Mean Corpuscular HGB Conc 31.6 g/dl (32-36); Mean Corpuscular Hemoglobin 30.3 pg (26-34); Mean Corpuscular Volume 95.6 fl (80-100); Mean Platelet Volume 10.5 fl (7.4-10.4); Monocytes Percent Auto 5.2 % (2.6-8.5); Neutrophils Absolute Auto 16.8 K/mm3 (1.3-6.7); Neutrophils Percent Auto 88.6 % (45.5-73.1); Platelet Count Result 224 k/mm3 (150-375); Red Blood Count 4.13 M/mm3 (4.6-6.20)
[2022-07-02 19:55] LABS: CRP 6.3 mg/dL (<1.0)
[2022-07-02 20:32] LABS: Procalcitonin 0.1 ng/mL
[2022-07-02] MEDS: LATANOPROST 0.005% OP SOLN 2.5 ML BTL 1 DROP EACH EYE ×2 (21:16)
[2022-07-02] MEDS: REMDESIVIR 100 MG/NS 250 ML 100 MG/250 ML BAG 250 MG IVPB (21:16)
[2022-07-02] MEDS: rOPINIRole HCL 0.5 MG TABLET PO (21:16)
[2022-07-02 21:29] LABS: Glucose Point of Care 145 mg/dl (65-105)
[2022-07-03 00:52] VITALS: BP 157/92; PULSE 79; RESP 16; TEMP 36.6; O2SAT 93
[2022-07-03 05:00] VITALS: BP 145/95; PULSE 84; RESP 18; TEMP 36.3; O2SAT 97
[2022-07-03 05:57] LABS: Basophils Percent Auto 0.2 % (0.2-1.2); Hematocrit 39.5 % (42.0-52.0); Hemoglobin 12.6 g/dL (14.0-18.0); Immature Granulocyte Absolute 0.09 K/mm3 (0.00-0.031); Immature Granulocyte Percent A 0.5 % (0-0.5); Lymphocytes Absolute Auto 1.28 K/mm3 (0.9-3.2); Lymphocytes Percent Auto 7.3 % (18.3-44.2); Mean Corpuscular HGB Conc 31.9 g/dl (32-36); Mean Corpuscular Hemoglobin 29.8 pg (26-34); Mean Corpuscular Volume 93.4 fl (80-100); Mean Platelet Volume 10.9 fl (7.4-10.4); Monocytes Absolute Auto 1.4 K/mm3 (0.1-0.6); Monocytes Percent Auto 8.1 % (2.6-8.5); Neutrophils Absolute Auto 14.7 K/mm3 (1.3-6.7); Neutrophils Percent Auto 83.9 % (45.5-73.1); Platelet Count Result 226 k/mm3 (150-375); Red Blood Count 4.23 M/mm3 (4.6-6.20); Red Cell Distribution Width 13.8 % (11.5-14.5); White Blood Count 17.6 K/mm3 (4.5-10.0)
[2022-07-03 06:02] LABS: INR 1.2; Prothrombin Time 14.4 Seconds (11.1-14.7)
[2022-07-03 06:04] LABS: Alanine Aminotransferase 30 U/L (6-50); Albumin Level 3.9 g/dL (3.5-5.1); Alkaline Phosphatase 66 U/L (38-126); Anion Gap 5 mmol/L (8-16); Aspartate Amino Transferase 31 U/L (17-59); Bilirubin,Total 0.5 mg/dL (0.2-1.3); Blood Urea Nitrogen 35 mg/dL (9-20); Calcium 8.4 mg/dL (8.4-10.2); Carbon Dioxide 27 mmol/L (22-30); Chloride 102 mmol/L (98-107); Estimated CRCL calculation 50 ml/min; Estimated Glomerular Filt Rate 53; Glucose 138 mg/dL (65-110); Potassium 4.1 mmol/L (3.4-5.0); Sodium 134 mmol/L (137-145)
[2022-07-03 06:16] LABS: D Dimer 0.91 ug/mL (<0.48)
[2022-07-03 06:28] LABS: Procalcitonin 0.1 ng/mL
[2022-07-03 06:34] LABS: Alanine Aminotransferase 31 U/L (6-50); Albumin Level 3.8 g/dL (3.5-5.1); Alkaline Phosphatase 72 U/L (38-126); Anion Gap 7 mmol/L (8-16); Aspartate Amino Transferase 30 U/L (17-59); Bilirubin,Total 0.5 mg/dL (0.2-1.3); Blood Urea Nitrogen 36 mg/dL (9-20); Calcium 8.3 mg/dL (8.4-10.2); Carbon Dioxide 25 mmol/L (22-30); Chloride 106 mmol/L (98-107); Estimated CRCL calculation 50 ml/min; Estimated Glomerular Filt Rate 53; Glucose 140 mg/dL (65-110); Potassium 4.5 mmol/L (3.4-5.0); Sodium 138 mmol/L (137-145)
[2022-07-03 08:27] LABS: Glucose Point of Care 122 mg/dl (65-105)
--- NOTE | 2022-07-03 08:59 | PM.IMPN ---
Progress Note: A&P Assessment and Plan (1) COVID-19: Code(s): U07.1 - COVID-19 Status: Acute Assessment and Plan: Supportive care, continue remdesivir and dexamethasone Check CRP, D-dimer CTA and Dopplers negative, no signs of pneumonia, PE or atelectasis noted Blood cultures ordered and pending Chest x-ray shows mild infiltrate or atelectasis of the lower lung zones, left greater than right (2) Acute respiratory failure with hypoxia: Code(s): J96.01 - Acute respiratory failure with hypoxia Status: Acute Assessment and Plan: Wean as tolerated, home O2 eval may be needed prior to discharge Started on azithromycin Rocephin for possible community-acquired pneumonia, do not suspect bacterial infectious etiology will discontinue tomorrow if patient continues to show no signs of superimposed infection (3) Gastroesophageal reflux disease: Code(s): K21.9 - Gastro-esophageal reflux disease without esophagitis Status: Acute Assessment and Plan: Continue famotidine (4) Chronic kidney disease, stage 3: Code(s): N18.30 - Chronic kidney disease, stage 3 unspecified Status: Acute Assessment and Plan: Stable, appears to be at baseline, creatinine 1.2 (5) Chronic obstructive pulmonary disease: Code(s): J44.9 - Chronic obstructive pulmonary disease, unspecified Status: Acute Assessment and Plan: Stable, continue dexamethasone and breathing treatments as needed Plan DVT prophylaxis with Lovenox GI prophylaxis with PPI Code status full code Subjective Date/time seen: 07/03/22 08:59 Interval history: No overnight events noted. No chest pain or shortness of breath. No nausea, vomiting or diarrhea. No fevers or chills. Patient states he feels much better today than he did when he came in. Exam Narrative: General: No acute distress, alert and oriented per baseline comfortable on 2 L HEENT: Atraumatic, normocephalic, mucous membranes moist CV: Regular rate and rhythm, S1, S2 Lungs: Scattered fine crackles throughout, diminished at bases, moderate air entry Abdomen: Soft, nontender, nondistended Extremities: Normal to inspection Skin: No rashes noted, no lesions or wounds seen Psych: Euthymic, normal affect Objective Data Vital Signs Vital Signs: Vital Signs - 24 hr 07/02/22 09:02 07/02/22 09:20 07/02/22 11:24 Temperature Pulse Rate 72 Respiratory Rate 20 Blood Pressure Pulse Oximetry 94 99 Oxygen Delivery Nasal Cannula Nasal Cannula Oxygen Flow Rate 2 2 Fraction of Inspired Oxygen 07/02/22 12:00 07/02/22 16:00 07/02/22 19:07 Temperature 96.8 F L 97.1 F L 97.9 F Pulse Rate 81 80 96 Respiratory Rate 16 16 18 Blood Pressure 120/69 119/70 128/73 Pulse Oximetry 94 96 95 Oxygen Delivery Oxygen Flow Rate Fraction of Inspired Oxygen 07/02/22 22:19 07/03/22 00:52 07/03/22 05:00 Temperature 97.6 F 97.9 F 97.4 F L Pulse Rate 102 H 79 84 Respiratory Rate 18 16 18 Blood Pressure 155/82 H 157/92 H 145/95 H Pulse Oximetry 95 93 97 Oxygen Delivery Oxygen Flow Rate Fraction of Inspired Oxygen Intake/Output Intake/Output: Intake & Output 06/30/22 07/01/22 07/02/22 07/03/22 23:59 23:59 23:59 23:59 Intake Total 1400 2240 480 Output Total 1650 1000 Balance 1400 590 -520 Meds/Results Medications: Active Medications Generic Name Dose Route Start Last Admin Trade Name Freq PRN Reason Stop Dose Admin Albuterol 2.5 mg 07/02/22 04:36 Albuterol Sulfate Neb 2.5 Mg/3 Ml Inh INHALATION Q6HRT PRN Shortness Of Breath Ascorbic Acid 500 mg 07/02/22 09:00 07/02/22 09:21 Ascorbic Acid 500 Mg Tablet PO 500 mg DAILY LAURA Administration Dexamethasone 6 mg 07/02/22 08:00 07/02/22 09:23 Dexamethasone 2 Mg Tablet PO 07/11/22 08:01 6 mg DAILY@0800 LAURA Administration Dextrose 12.5 gm 07/01/22 22:46 Dextrose
[2022-07-03] MEDS: glipiZIDE 5 MG TABLET PO (09:06)
[2022-07-03] MEDS: ASCORBIC ACID 500 MG TABLET PO (09:06)
[2022-07-03] MEDS: ENOXAPARIN 40 MG/0.4 ML SYRINGE SUB-Q (09:06)
[2022-07-03] MEDS: DEXAMETHASONE 2 MG TABLET 6 MG PO (09:06)
[2022-07-03] MEDS: CHOLECALCIFEROL 1,000 UNITS TABLET 5000 UNITS PO (09:06)
[2022-07-03] MEDS: ZINC SULFATE 220 MG CAPSULE PO (09:07)
[2022-07-03] MEDS: UMECLIDINIUM BROMIDE 62.5 MCG ELLIPTA 1 PUFF INHALATION (09:07)
[2022-07-03] MEDS: PANTOPRAZOLE 40 MG TABLET PO (09:07)
[2022-07-03] MEDS: guaiFENesin 12 HR 600 MG TABCR 1200 MG PO (09:07)
[2022-07-03] MEDS: TAMSULOSIN HCL 0.4 MG CAPSULE PO (09:07)
[2022-07-03] MEDS: FAMOTIDINE 20 MG TABLET PO (09:07)
[2022-07-03 10:20] VITALS: BP 136/65; PULSE 90; RESP 18; TEMP 36.5; O2SAT 100
[2022-07-03 11:00] VITALS: O2SAT 97
[2022-07-03 11:05] VITALS: O2SAT 90
[2022-07-03 11:15] VITALS: O2SAT 97
--- NOTE | 2022-07-03 11:49 | PCRCNOTE ---
Home O2 eval done, Room air rest and exertion. Pt up to bathroom, showering and dressing/grooming, no O2 needs with activity or rest.
[2022-07-03 12:16] LABS: Glucose Point of Care 134 mg/dl (65-105)
--- NOTE | 2022-07-03 14:05 | PM.DS ---
DS: Admitting Diagnosis Discharge Date 07/03/22 Admitting Diagnosis sob DS: Discharge Diagnosis Discharge Diagnosis (1) COVID-19: Code(s): U07.1 - COVID-19 Status: Acute Assessment and Plan: Supportive care, continue remdesivir and dexamethasone Check CRP, D-dimer CTA and Dopplers negative, no signs of pneumonia, PE or atelectasis noted Blood cultures ordered and pending Chest x-ray shows mild infiltrate or atelectasis of the lower lung zones, left greater than right (2) Acute respiratory failure with hypoxia: Code(s): J96.01 - Acute respiratory failure with hypoxia Status: Acute Assessment and Plan: Wean as tolerated, home O2 eval may be needed prior to discharge Started on azithromycin Rocephin for possible community-acquired pneumonia, do not suspect bacterial infectious etiology will discontinue tomorrow if patient continues to show no signs of superimposed infection (3) Gastroesophageal reflux disease: Code(s): K21.9 - Gastro-esophageal reflux disease without esophagitis Status: Acute Assessment and Plan: Continue famotidine (4) Chronic kidney disease, stage 3: Code(s): N18.30 - Chronic kidney disease, stage 3 unspecified Status: Acute Assessment and Plan: Stable, appears to be at baseline, creatinine 1.2 (5) Chronic obstructive pulmonary disease: Code(s): J44.9 - Chronic obstructive pulmonary disease, unspecified Status: Acute Assessment and Plan: Stable, continue dexamethasone and breathing treatments as needed Plan DVT prophylaxis with Lovenox GI prophylaxis with PPI Code status full code DS: Summary Hospital Course Hospital Course: 82-year-old male with past medical history significant for diabetes, COPD, GERD, BPH, chronic kidney disease for shortness of breath and weakness. He was found to be positive for COVID and required oxygen. There was concern for superimposed bacterial pneumonia. Therefore he was started on Rocephin azithromycin. Home O2 eval was performed and eventually he did not require oxygen at baseline. She is able to be weaned to room air and did quite well. He was treated with 3 days of IV remdesivir and will be discharged to complete 10 days of dexamethasone 6 mg orally daily. He completed 3 days of 500 mg of azithromycin. He was discharged to complete 7 days of the cephalosporin with cefdinir. Time Spent with Patient Time attestation: Total time spent providing and/or coordinating discharge services: Exam Narrative: General: No acute distress, alert and oriented per baseline comfortable on 2 L HEENT: Atraumatic, normocephalic, mucous membranes moist CV: Regular rate and rhythm, S1, S2 Lungs: Scattered fine crackles throughout, diminished at bases, moderate air entry Abdomen: Soft, nontender, nondistended Extremities: Normal to inspection Skin: No rashes noted, no lesions or wounds seen Psych: Euthymic, normal affect DS: Data Data Completed and Pending Labs on day of discharge: Labs from last 24 hours 07/03/22 07/03/22 07/03/22 12:13 08:23 05:22 WBC RBC Hgb Hct MCV MCH MCHC RDW Plt Count MPV Immature Gran % (Auto) Neut % (Auto) Lymph % (Auto) Esmeralda % (Auto) Eos % (Auto) Baso % (Auto) Lymph # (Auto) Esmeralda # (Auto) Eos # (Auto) Baso # (Auto) Abs Immat Gran (auto) Absolute Neuts (auto) Absolute Nucleated RBC Nucleated RBC % PT INR D-Dimer Sodium Potassium Chloride Carbon Dioxide Anion Gap BUN Creatinine Estim Creat Clear Calc Estimated GFR Glucose POC Capillary Glucose 134 H 122 H Calcium Total Bilirubin AST ALT Alkaline Phosphatase C-Reactive Protein 5.0 H Total Protein Albumin Procalcitonin 07/03/22 07/03/22 07/03/22 05:22 05:22 05:22 WBC 17.6 H RBC 4.23 L Hgb 12
== END 2022-07-03 16:43 | disposition home or self-care (01) | DRG 177 ==
LOC: ANHED 16:38 → ANHIMU 17:43 → ANH2MED 07-02 18:18
PROVIDERS: Physician Assistant; Admitting Provider Student in an Organized Health Care Education/Training Program; Emergency Provider Emergency Medicine; PCP Internal Medicine; Visit Provider Student in an Organized Health Care Education/Training Program
DX: U07.1 COVID-19 (principal); J18.9 Pneumonia, unspecified organism; J96.01 Acute respiratory failure with hypoxia; K21.9 Gastro-esophageal reflux disease without esophagitis; Z77.090 Contact with and (suspected) exposure to asbestos; N40.1 Benign prostatic hyperplasia with lower urinary tract symptoms; E11.22 Type 2 diabetes mellitus with diabetic chronic kidney disease; E11.42 Type 2 diabetes mellitus with diabetic polyneuropathy; N18.30 Chronic kidney disease, stage 3 unspecified; R41.0 Disorientation, unspecified; E78.5 Hyperlipidemia, unspecified; G25.81 Restless legs syndrome; Z87.891 Personal history of nicotine dependence
CPT/HCPCS: 36415; 36600; 71045; 71275; 80053; 81001; 82375; 82805; 82948; 83050; 83605; 83735; 83880; 84145; 84443; 84484; 85025; 85380; 85610; 85730; 86140; 87040; 87637; 93005; 93970; 94002; 94618; 94640; 96361; 96365; 96367; 99285; A9270; J0131; J0248; J0456; J0696; J1650; J7030; J8540; Q9967

== ENCOUNTER 2022-07-16 11:37 | Outpatient (CLI) | payer OTHER, SELFPAY ==
[2022-07-16 12:06] LABS: Hematocrit 41.3 % (42.0-52.0); Mean Corpuscular HGB Conc 31.5 g/dl (32-36); Mean Corpuscular Hemoglobin 29.7 pg (26-34); Mean Corpuscular Volume 94.3 fl (80-100); Platelet Count Result 247 k/mm3 (150-375); Red Blood Count 4.38 M/mm3 (4.6-6.20); Red Cell Distribution Width 13.6 % (11.5-14.5); White Blood Count 11.6 K/mm3 (4.5-10.0)
[2022-07-16 12:27] LABS: Alanine Aminotransferase 39 U/L (6-50); Albumin Level 4.1 g/dL (3.5-5.1); Alkaline Phosphatase 78 U/L (38-126); Anion Gap 4 mmol/L (8-16); Aspartate Amino Transferase 23 U/L (17-59); Bilirubin,Total 0.6 mg/dL (0.2-1.3); Blood Urea Nitrogen 28 mg/dL (9-20); Calcium 8.8 mg/dL (8.4-10.2); Carbon Dioxide 30 mmol/L (22-30); Chloride 99 mmol/L (98-107); Estimated Glomerular Filt Rate 53; Glucose 122 mg/dL (65-110); Phosphorus 4.4 mg/dL (2.5-4.5); Potassium 4.4 mmol/L (3.4-5.0); Sodium 133 mmol/L (137-145)
[2022-07-16 12:36] LABS: Hemoglobin A1C 6.6 % (<5.7)
[2022-07-24 20:37] LABS: Parathyroid Hormone Related Pr 6 pg/mL (11-20)
== END 2022-07-16 11:38 | disposition home or self-care (01) ==
LOC: ANHLAB 11:39
PROVIDERS: PCP Internal Medicine; Visit Provider Internal Medicine
DX: R53.83 Other fatigue (principal); N18.30 Chronic kidney disease, stage 3 unspecified; E11.9 Type 2 diabetes mellitus without complications
CPT/HCPCS: 36415; 80053; 83036; 83519; 84100; 84443; 85027

== ENCOUNTER 2022-08-06 12:16 | Inpatient (IN) | payer OTHER, SELFPAY ==
[2022-08-06] VITALS (8 sets, daily range): BP systolic 105–138; BP diastolic 52–74; PULSE 92–118; RESP 13–20; TEMP 36.8–37.2; O2SAT 91–97; BMI 32.2
--- NOTE | ~2022-08-06 | CT_ITS ---
EXAMINATION: CT abdomen pelvis w con DATE: 08/06/2022 18:26 INDICATION: Infection and increased weakness. TECHNIQUE: Computed tomography (CT) of the abdomen and pelvis was performed with 100 mL Omnipaque-350 intravenous contrast. Automated exposure control and iterative reconstruction technique were employe d. The dose-length product was 1394.90 mGy-cm. COMPARISON: 06/10/2013 FINDINGS: Consolidation patchy groundglass opacities in the left lower lobe consistent with pneumonia. Discoid atelectasis at the lingula. Heart size is normal. Atherosclerotic coronary artery calcification is. N o pericardial or pleural effusion. Aortic valve calcification. Visualized portion of the thoracic aor ta is normal in caliber. Small sliding-type hiatal hernia suggesting prior Charles fundoplication. The re is edematous-appearing wall thickening in the distal esophagus which suggests esophagitis such as in the setting of reflux. Liver, gallbladder, bilateral adrenal glands and kidneys are normal. Mild f atty infiltration of the pancreas with dystrophic calcifications at the head of the pancreas which is likely sequela of chronic pancreatitis. A few splenic calcifications consistent with old granulomato us disease. There is mild colonic diverticulosis with a sigmoid predominance. There is no adjacent i nflammatory change to suggest diverticulitis. Small bowel and appendix are normal. Small fat-contain ing umbilical hernia and a couple small fat-containing ventral hernias along a midline surgical scar. There are also postoperative change of bilateral inguinal hernia repairs. Tiny focus of gas within t he otherwise unremarkable bladder. No free intraperitoneal gas or fluid. No pathologically enlarged a bdominal or pelvic lymphadenopathy. There is calcified atherosclerosis of the aorta and many of the o ther arteries. Spondylosis, moderate at L5-S1 and mild at the more cephalad lumbar and lower thoracic spine. Mild bilateral hip osteoarthritis. Right periacetabular bone island. IMPRESSION: 1. Left lower lobe pneumonia. 2. Small sliding-type hiatal hernia with change of likely prior Charles complication and with wall thi ckening in the distal esophagus suggestive of esophagitis such as in the setting of reflux. 3. Tiny focus of gas within the otherwise unremarkable bladder. Correlate for recent bladder instrume ntation or Verma catheterization. The differential would include cystitis and would correlate with ur inalysis. Reviewed, dictated and finalized at location A. IMPRESSION: 1. Left lower lobe pneumonia. 2. Small sliding-type hiatal hernia with change of likely prior Charles complica tion and with wall thickening in the distal esophagus suggestive of esophagitis such as in the setting of reflux. 3. Tiny focus of gas within the otherwise unremarkable bladder. Correlate for r ecent bladder instrumentation or Verma catheterization. The differential would include cystitis and would correlate with urinalysis.
--- NOTE | ~2022-08-06 | XR_ITS ---
EXAMINATION: XR chest 1V DATE: 08/06/2022 13:47 INDICATION: Increased weakness and confusion TECHNIQUE: frontal and lateral views of the chest were obtained. COMPARISON: Chest radiograph and CT dated 07/01/2022 FINDINGS: Opacities at bilateral lung bases, left greater than right. Mild cardiomegaly. Small hiatal hernia. IMPRESSION: 1. Bibasilar opacities, left greater than right which could represent atelectasis versus less likely mild pulmonary edema or pneumonia. 2. Cardiomegaly. 3. Small hiatal hernia. Reviewed, dictated and finalized at location A. IMPRESSION: 1. Bibasilar opacities, left greater than right which could represent atelectas is versus less likely mild pulmonary edema or pneumonia. 2. Cardiomegaly. 3. Small hiatal hernia.
--- NOTE | ~2022-08-06 | CT_ITS ---
EXAMINATION: CT brain wo con DATE: 08/06/2022 13:39 INDICATION: Increased weakness and confusion TECHNIQUE: Computed tomography (CT) of the head was performed without intravenous contrast. Sagittal and coronal reconstructions were performed. The mA was adjusted according to patient size. Iterative reconstruction technique was employed. The dose-length product was 756.67 mGy-cm. COMPARISON: Brain MR dated 06/08/2020 FINDINGS: No acute intracranial hemorrhage or acute infarction. Unchanged arachnoid cyst at the anterolateral r ight posterior fossa which exerts mild mass effect upon the anterior right cerebellum. There is mild scattered white matter hypoattenuation consistent with chronic small vessel ischemic disease. There is somewhat disproportionate enlargement of the lateral ventricles relative to the margin of the sulc i and third and fourth ventricles which could be related to central predominant atrophy but could als o be seen in the setting of normal pressure hydrocephalus. No masses. There is cortical thickening of the right maxillary sinus consistent with chronic sinusitis. The orbits and mastoid air cells are no rmal. Intracranial calcified cerebral atherosclerosis is noted. IMPRESSION: 1. Unchanged disproportionate enlargement of the lateral ventricles relative to the remaining ventric les and sulci which could be related to either central predominant diffuse volume loss could also be seen with normal pressure hydrocephalus (NPH: clinical triad ataxia/gait disturbance, dementia, urinary incontinence). 2. Mild scattered white matter hypoattenuation consistent with chronic small vessel ischemic disease. Reviewed, dictated and finalized at location A. IMPRESSION: 1. Unchanged disproportionate enlargement of the lateral ventricles relative to the remaining ventricles and sulci which could be related to either central pr edominant diffuse volume loss could also be seen with normal pressure hydroceph alus (NPH: clinical triad ataxia/gait disturbance, dementia, urinary incontinence). 2. Mild scattered white matter hypoattenuation consistent with chronic small ve ssel ischemic disease.
--- NOTE | ~2022-08-06 | US_ITS ---
EXAMINATION: US venous doppler [facility] DATE: 08/07/2022 14:54 INDICATION: Lower limb swelling TECHNIQUE: Grayscale ultrasound images without and with compression and Doppler ultrasound images of the bilateral lower extremity veins were obtained. COMPARISON: 07/02/2022 FINDINGS: The visualized portions of right common femoral vein, profunda (deep) femoral vein, femoral vein, pop liteal vein, posterior tibial veins, peroneal veins, gastrocnemius vein and greater saphenous vein ou tflow are patent. The visualized portions of left common femoral vein, profunda femoral vein, femoral vein, popliteal v ein, posterior tibial veins, peroneal veins, gastrocnemius vein and greater saphenous vein outflow ar e patent. IMPRESSION: 1. No deep venous thrombosis in either lower limb. Reviewed, dictated and finalized at location A.
--- NOTE | 2022-08-06 13:18 | ECG_ITS ---
Measurements Intervals Edwards Rate: 104 P: 45 WI: 152 QRS: 5 QRSD: 88 T: 6 QT: 330 QTc: 434 Interpretive Statements SINUS TACHYCARDIA LOW QRS VOLTAGE IN PRECORDIAL LEADS [QRS DEFLECTION < 1.0 mV IN CHEST LEADS] INCOMPLETE RIGHT BUNDLE BRANCH BLOCK MINIMAL ST DEPRESSION [0.025+ mV ST DEPRESSION] ABNORMAL RHYTHM ECG COMPARED TO ECG 07/01/2022 11:45:41 NO SIGNIFICANT CHANGES Electronically Signed On 08-07-2022 15:00:48 CDT by Sissy Umanzor M.D.
[2022-08-06 14:07] LABS: Hematocrit 43.3 % (42.0-52.0); Hemoglobin 13.8 g/dL (14.0-18.0); Mean Corpuscular HGB Conc 31.9 g/dl (32-36); Mean Corpuscular Hemoglobin 30.3 pg (26-34); Mean Corpuscular Volume 95.2 fl (80-100); Mean Platelet Volume 10.5 fl (7.4-10.4); Platelet Count Result 282 k/mm3 (150-375); Red Blood Count 4.55 M/mm3 (4.6-6.20); Red Cell Distribution Width 13.7 % (11.5-14.5); White Blood Count 28.3 K/mm3 (4.5-10.0)
[2022-08-06 14:15] LABS: Alanine Aminotransferase 37 U/L (6-50); Albumin Level 4.1 g/dL (3.5-5.1); Alkaline Phosphatase 92 U/L (38-126); Anion Gap 8 mmol/L (8-16); Aspartate Amino Transferase 25 U/L (17-59); Bilirubin,Total 0.9 mg/dL (0.2-1.3); Blood Urea Nitrogen 26 mg/dL (9-20); Calcium 8.6 mg/dL (8.4-10.2); Carbon Dioxide 25 mmol/L (22-30); Chloride 101 mmol/L (98-107); Estimated CRCL calculation 38 ml/min; Estimated Glomerular Filt Rate 49; Glucose 145 mg/dL (65-110); Potassium 4.5 mmol/L (3.4-5.0); Sodium 134 mmol/L (137-145)
[2022-08-06 14:26] LABS: Troponin I < 0.012 ng/mL (0.000-0.034)
[2022-08-06 14:53] LABS: Band Neutrophils Percent 10 % (0-6); Lymphocytes Absolute Manual 0.28 K/mm3 (1.1-4.5); Monocytes Absolute Manual 1.41 K/mm3 (0.1-0.90); Monocytes Percent Manual 5 % (3-9); Neutrophils Percent Manual 84 % (46-73); Total Cells Counted 100
[2022-08-06 14:54] LABS: Platelet Estimate Adequate (Adequate); Schistocytes None Seen (NORMAL)
--- NOTE | 2022-08-06 15:31 | ED.AMS ---
HPI - Altered Mental Status General Chief Complaint: Altered Mental Status Stated Complaint: weakness, confusion Time Seen by Provider: 08/06/22 15:31 Source: patient and EMS Mode of arrival: EMS Limitations: no limitations History of Present Illness HPI narrative: Patient is 82 years old white male came from home by ambulance because his girlfriend noticed that he is incoherent this morning, cannot sit up because of general weakness and does not remember, on arrival to the ED patient does not know why he is here, is telling me that he been having balance issue for long time, and was in our facility 2 weeks ago and they could not fix him. He denies any fever, chills, nausea, vomiting, chest pain, shortness of breath or abdominal pain. Or headache. Patient tested positive for COVID July 01, 2022 MD complaint: altered mental status, confusion and decreased responsiveness Related Data Home Medications Medication Instructions Recorded Confirmed ascorbic acid (vitamin C) 500 mg 500 mg PO DAILY 10/05/21 07/27/22 capsule cholecalciferol (vitamin D3) 125 125 mcg PO DAILY 10/05/21 07/27/22 mcg (5,000 unit) capsule zinc acetate 50 mg (zinc) capsule 50 mg PO DAILY 10/05/21 07/27/22 glipizide 5 mg tablet 5 mg PO DAILY 07/01/22 07/27/22 latanoprost 0.005 % eye drops 1 drp EACH EYE HS 07/01/22 07/27/22 ropinirole 0.5 mg tablet 0.5 mg PO HS 07/01/22 07/27/22 Allergies Allergy/AdvReac Type Severity Reaction Status Date / Time No Known Allergies Allergy Verified 07/27/22 13:01 Review of Systems Review of Systems: All systems reviewed & are unremarkable except as noted in HPI and below PMFSH Past Medical History Medical History Benign positional vertigo Benign prostatic hyperplasia with lower urinary tract symptoms Chronic kidney disease, stage 3 Chronic neck pain Chronic obstructive pulmonary disease Exposure to asbestos Gastroesophageal reflux disease Hyperlipidemia Impaired glucose tolerance Polyarthritis Pulmonary asbestosis Restless legs syndrome Type 2 diabetes mellitus Surgical History Surgical History History of hernia repair Family History Family History Mother Family history of malignant neoplasm Patient's mother is Father Family history of malignant neoplasm Patient's father is Social History Social History (Updated 08/06/22 @ 19:38 by Anastasia Orozco NP) Social History: 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 Code status: Full code. Smoking packs per day: 1 Smoking cigarettes per day: 20.0 Years smoked: 15 Smoking pack-years: 15.00 Smoking status: Former smoker Tobacco type: cigarettes Second hand tobacco smoke exposure: No Smoking end date: 05/06/86 Alcohol intake: current Drinks per week: 2 Substance use: never Substance use type: does not use Lack of Transportation: No Lack of Food: Never True Current Housing: I Have Housing Concerned About Future Housing: No Difficulty Paying Gas/Electric Bills: No Difficulty Paying for Meds: No Currently Unemployed: No Education: High School Diploma/GED Difficulty w/ Childcare or Family Care: Decline to Answer Additional living arrangements comments: Lives in [place] with significant other. Additional occupation/education comments: Retired. Spiritual care concerns: No Exam Narrative: General appearance: Well-developed, well-nourished Skin: Normal color Head: Normocephalic, nontraumatic Eyes: Clear conjunctiva ENT: Oropharynx normal, ears normal, nose normal Neck: Supple, nontender Chest and respiratory: Airway patent, no respiratory distress, no accessory muscle use Heart: Regular rate/rhythm Abdomen: Soft, nonte
[2022-08-06 15:34] LABS: INR 1.1; Prothrombin Time 13.7 Seconds (11.1-14.7)
[2022-08-06 15:35] LABS: Partial Thromboplastin Time 28.4 SECONDS (22.3-36.8)
[2022-08-06 15:51] LABS: D Dimer 1.16 ug/mL (<0.48)
[2022-08-06 16:01] LABS: NT Pro B Type Natriuretic Pept 170 pg/mL (19.9-100)
[2022-08-06] MEDS: ONDANSETRON INJ 4 MG/2 ML VIAL IV PUSH (16:09)
[2022-08-06 16:13] LABS: Base Excess ABG 0.9 mEq/l (+/-2.0); Fractional Inspired Oxygen 21 %; HCO3 ABG 25.4 mEq/l (22.0-26.0); Oxygen Content ABG 17.9 %vol (16.0-22.0); Oxygen Saturation ABG 91.9 % (95.0-100.0); Oxyhemoglobin 89.9 % THb (90.0-100.0); PCO2 ABG 40.5 mmHg (35.0-45.0); PO2 ABG 61.2 mmHg (80.0-100.0); PO2 FiO2 Ratio Arterial Blood 2.91 %; Total Hemoglobin 14.2 g/dL (12.0-18.0); pH ABG 7.416 (7.350-7.450)
[2022-08-06 16:14] LABS: Modified Allen's Test Pass; Site Drawn RIGHT RADIAL
[2022-08-06 18:05] LABS: Appearance Urine Clear (Clear); Bilirubin Urine Negative (Negative); Blood Urine Negative (Negative); Color Urine Yellow (Yellow); Glucose Urine UA Negative (Negative); Ketones Urine Negative (Negative); Leukocyte Esterase Ur Negative LEU/UL (Negative); Nitrate Urine Negative (Negative); Protein Urine Negative (Negative); Specific Grav Ur 1.018 (1.001-1.035); pH Urine 6.5 (5.0-9.0)
[2022-08-06] MEDS: PIPERACILLN/TAZ 3.375GM/NS50ML 3.375 GM/50 ML BAG IVPB (18:11)
[2022-08-06] MEDS: SODIUM CHLORIDE 0.9% IV 1,000 ML 999 ML IV CONT (18:11)
[2022-08-06 18:25] LABS: Add Urine Microscopic? NO
--- NOTE | 2022-08-06 19:37 | PM.IMHP ---
H&P: HPI History of Present Illness Date/Time: 08/06/22 19:37 Chief Complaint: Altered mental status Narrative: This is an 82-year-old male patient who came to the emergency room via ambulance from home. His significant other noticed that he was incoherent this morning. The patient was having some generalized weakness and could not remember. The patient was discharged from here on 07/03/2022 due to COVID. Patient was treated conservatively. The ED provider asked stated that the patient has been having balance issues for a long time. The patient denies any fever chills or any nausea vomiting or diarrhea. When I saw the patient he was awake and talking. The patient told me that he wanted to go home and I explained to him that he needed to be evaluated by neurology 1st. The patient was then agreeable to staying. His white count was noted to be 28.3. D-dimer is 1.16. Arterial blood gases pH 7.416 O2 was 61.2. Sodium 134 BUN 26 creatinine 1.4. Last month his creatinine is 1.3. Lactic was 2.4. Troponin nonreactive. Urine was negative. Chest x-ray was read as bibasilar opacities left greater than right which represents atelectasis versus least likely in mild pulmonary edema pneumonia. Cardiomegaly and small hiatal hernia. Head CT was read asUnchanged disproportionate enlargement of the lateral ventricles relative to the remaining ventricles and sulci which could be related to either central predominant diffuse volume loss could also be seen with normal pressure hydrocephalus (NPH: clinical triad ataxia/gait disturbance, dementia, urinary incontinence). 2. Mild scattered white matter hypoattenuation consistent with chronic small vessel ischemic disease. Abdominal pelvis CT was taken but not read Patient was given Zofran Zosyn Levaquin and IV fluids in the emergency room. The patient is being admitted to inpatient status on the date of service of 08/06/2022. Review of Systems Review of Systems: All systems reviewed & are unremarkable except as noted in HPI and below Constitutional: Constitutional: Reports as per HPI and Reports no additional constitutional complaints Eyes: Eyes: Reports as per HPI and Reports no additional eye complaints ENT: Reports system reviewed and no additional complaints, except as documented and Reports Normal hearing present Cardiovascular: Cardiovascular: Reports no additional cardiovascular complaints Respiratory: Respiratory: Reports no additional respiratory complaints and Reports no additional respiratory complaints Gastrointestinal: Gastrointestinal: Reports as per HPI and Reports no additional gastrointestinal complaints Musculoskeletal: Musculoskeletal: Reports no additional musculoskeletal complaints Integumentary/Breasts: Skin/Breast: Reports system reviewed and no additional complaints, except as docu and Reports as per HPI Neurologic: Reports system reviewed and no additional complaints, except as documented, Reports as per HPI and Reports Normal hearing present Psychiatric: Psychiatric: Reports no additional psychiatric complaints and Reports as per HPI Endocrine: Endocrine: Reports no additional endocrine complaints Hematologic/Lymphatic: Hematologic/Lymphatic: Reports no additional hematologic/lymphatic complaints Allergic/Immunologic: Allergic/Immunologic: Reports no additional allergic/immunologic complaints [facility] Past Medical History Medical History Benign positional vertigo Benign prostatic hyperplasia with lower urinary tract symptoms Chronic kidney disease, stage 3 Chronic neck pain Chronic obstructive pulmonary disease Exposure to asbestos Gastroesophageal reflux disease Hyperlipidemia Impaired glucose tolerance Polyarthritis Pulmonary asbestosis Restless legs syndrome Type 2 diabetes mellitus Surgical History Surgical History History of hernia repair Family Hi
[2022-08-06 20:01] LABS: Lactic Acid Reflex 2.4 mmol/L (0.7-2.0)
[2022-08-06] MEDS: LEVALBUTEROL NEB 1.25 MG/3 ML 0.63 MG INHALATION (20:17)
--- NOTE | 2022-08-06 20:59 | PC.NURSE ---
Spoke with patient's significant other Funmi Vigil at this time. She requested to be contacted with any updates and to have her contact information in patient's chart. phone number [phone]
--- NOTE | 2022-08-06 21:23 | ADMGEN ---
This patient, Krunal Leal, was admitted to [facility] Surg Room 305-02. Patient/family oriented to hospital policies and general routines including ID bracelet, bed and alarms, visiting hours, pain management, procedures, bathroom and other care routines, personal items, smoking policy, room service/diet, and visiting hours. Information on how to activate the Rapid Response Team has been discussed. Patient/Family are encouraged to report perceived risks to care and to ask questions if they do not understand what they are told or what they should do.
[2022-08-06] MEDS: SODIUM CHLORIDE 0.9% IV 1,000 ML 125 ML IV CONT (21:39)
[2022-08-06 22:47] LABS: Reflex Lactic Acid Yes or No Add Lactic
[2022-08-07] VITALS (10 sets, daily range): BP systolic 127–143; BP diastolic 61–77; PULSE 85–107; RESP 14–18; TEMP 36.8–37.5; O2SAT 91–94
[2022-08-07] MEDS: PIPERACILLN/TAZ 3.375GM/NS50ML 3.375 GM/50 ML BAG IVPB ×4 (00:06→18:32)
[2022-08-07 07:09] LABS: Hematocrit 36.7 % (42.0-52.0); Hemoglobin 11.7 g/dL (14.0-18.0); Mean Corpuscular HGB Conc 31.9 g/dl (32-36); Mean Corpuscular Hemoglobin 30.5 pg (26-34); Mean Corpuscular Volume 95.6 fl (80-100); Mean Platelet Volume 10.4 fl (7.4-10.4); Platelet Count Result 235 k/mm3 (150-375); Red Blood Count 3.84 M/mm3 (4.6-6.20); Red Cell Distribution Width 14.1 % (11.5-14.5); White Blood Count 23.2 K/mm3 (4.5-10.0)
[2022-08-07 07:16] LABS: Hemoglobin A1C 6.9 % (<5.7)
[2022-08-07 07:20] LABS: Lactic Acid Reflex 1.3 mmol/L (0.7-2.0)
[2022-08-07 07:21] LABS: Alanine Aminotransferase 31 U/L (6-50); Albumin Level 3.5 g/dL (3.5-5.1); Alkaline Phosphatase 72 U/L (38-126); Anion Gap 7 mmol/L (8-16); Aspartate Amino Transferase 24 U/L (17-59); Bilirubin,Total 1.1 mg/dL (0.2-1.3); Blood Urea Nitrogen 23 mg/dL (9-20); Calcium 8.2 mg/dL (8.4-10.2); Carbon Dioxide 28 mmol/L (22-30); Chloride 103 mmol/L (98-107); Estimated CRCL calculation 52 ml/min; Estimated Glomerular Filt Rate 53; Glucose 101 mg/dL (65-110); Potassium 4.3 mmol/L (3.4-5.0); Sodium 138 mmol/L (137-145)
[2022-08-07 07:36] LABS: Atypical Lymphocytes Present; Band Neutrophils Percent 6 % (0-6); Eosinophils Absolute Manual 0.46 K/mm3 (0.02-0.5); Eosinophils Percent Manual 2 % (0-4); Lymphocytes Absolute Manual 2.55 K/mm3 (1.1-4.5); Monocytes Absolute Manual 1.62 K/mm3 (0.1-0.90); Monocytes Percent Manual 7 % (3-9); Neutrophils Absolute Manual 18.56 K/mm3 (1.3-6.7); Neutrophils Percent Manual 74 % (46-73); Platelet Estimate Adequate (Adequate); Schistocytes None Seen (NORMAL); Total Cells Counted 100
[2022-08-07 07:44] LABS: Glucose Point of Care 113 mg/dl (65-105)
[2022-08-07] MEDS: LEVALBUTEROL NEB 1.25 MG/3 ML 0.63 MG INHALATION ×3 (07:58→19:10)
[2022-08-07 11:33] LABS: Glucose Point of Care 187 mg/dl (65-105)
--- NOTE | 2022-08-07 13:26 | PM.IMPN ---
Progress Note: A&P Assessment and Plan (1) Pneumonia: Code(s): J18.9 - Pneumonia, unspecified organism Status: Acute Assessment and Plan: Patient was recently discharged from here with COVID. He has leukocytosis. The patient was started on Levaquin and Zosyn. Blood cultures are pending. Sputum cultures if obtainable. Continue with nebulizer treatment Tailor antibiotics according to cultures and sensitivities. White count 28.3 on admission in today 23.2. (2) Normal pressure hydrocephalus: Code(s): G91.2 - (Idiopathic) normal pressure hydrocephalus Status: Acute Assessment and Plan: This CT scan was unchanged from previous. Patient may follow-up with neuro surgery outpatient [facility]. The patient has chronic gait instability. He has been on meclizine (3) Benign prostatic hyperplasia with lower urinary tract symptoms: Code(s): N40.1 - Benign prostatic hyperplasia with lower urinary tract symptoms Status: Acute Assessment and Plan: Continue with current treatment (4) Chronic obstructive pulmonary disease: Code(s): J44.9 - Chronic obstructive pulmonary disease, unspecified Status: Acute Assessment and Plan: Continue with nebulizer treatment (5) Type 2 diabetes mellitus: Qualifiers: Diabetes mellitus complication detail: with unspecified neuropathy Diabetes mellitus complication status: with neurologic complications Diabetes mellitus longterm insulin use: without intermediate manager use Qualified Code(s): E11.40 - Type 2 diabetes mellitus with diabetic neuropathy, unspecified Code(s): E11.9 - Type 2 diabetes mellitus without complications Status: Acute Assessment and Plan: Accu-Cheks AC and HS with sliding scale insulin and hypoglycemic protocol Continue glipizide Check A1c Plan Abdominal pelvis CT was completed but was unable to be read at this time. This is due to it a radiology soft for problem at this time. Subjective Date/time seen: 08/07/22 13:26 Interval history: Patient came to the hospital due to lower extremity weakness. He was unable to walk at home. He denies shortness of breath, chest pain, nausea and vomiting. He does have a mild cough. PT and OT ordered for lower extremity weakness. Review of Systems Review of Systems: All systems reviewed & are unremarkable except as noted in HPI and below Exam Narrative: GENERAL: Comfortable, no acute distress HENMT: moist mucous membranes EYES: EOM intact b/l NECK: no lymphadenopathy RESPIRATORY: Distant breath sounds CARDIO: RRR GI: soft, nontender, bowel sounds present SKIN: no rashes EXTREMITIES: no edema, redness or tenderness Objective Data Vital Signs Vital Signs: Vital Signs - 24 hr 08/06/22 15:13 08/06/22 20:21 08/06/22 20:31 Temperature Pulse Rate 104 H 98 100 Respiratory Rate 18 17 17 Blood Pressure 138/74 Pulse Oximetry 97 Oxygen Delivery 08/06/22 20:44 08/06/22 21:10 08/06/22 21:25 Temperature 98.3 F 98.3 F Pulse Rate 98 99 99 Respiratory Rate 20 13 14 Blood Pressure 136/69 131/57 L 131/57 L Pulse Oximetry 94 94 94 Oxygen Delivery 08/06/22 23:28 08/07/22 05:30 08/07/22 08:01 Temperature 98.9 F 98.3 F Pulse Rate 92 85 94 Respiratory Rate 14 14 16 Blood Pressure 114/57 L 134/61 Pulse Oximetry 91 91 Oxygen Delivery 08/07/22 08:03 08/07/22 08:09 08/07/22 08:00 Temperature Pulse Rate 86 Respiratory Rate 16 Blood Pressure Pulse Oximetry 91 Oxygen Delivery Room Air Room Air Intake/Output Intake/Output: Intake & Output 08/04/22 08/05/22 08/06/22 08/07/22 23:59 23:59 23:59 23:59 Intake Total 1050 1880 Output Total 825 Balance 1050 1055 Meds/Results Medications: Active Medications Generic Name Dose Route Start Last Admin Trade Name Freq PRN Reason Stop Dose Admin Dextrose 12.5 gm
[2022-08-07 16:19] LABS: Glucose Point of Care 156 mg/dl (65-105)
[2022-08-07] MEDS: PANTOPRAZOLE 40 MG TABLET PO (18:32)
[2022-08-07] MEDS: GABAPENTIN 100 MG CAPSULE 200 MG PO (18:32)
[2022-08-07] MEDS: LATANOPROST 0.005% OP SOLN 2.5 ML BTL 1 DROP EACH EYE (20:10)
[2022-08-07] MEDS: rOPINIRole HCL 0.5 MG TABLET PO (20:10)
[2022-08-07] MEDS: SODIUM CHLORIDE 0.9% IV 1,000 ML 75 ML IV CONT (20:11)
[2022-08-07 21:28] LABS: Glucose Point of Care 159 mg/dl (65-105)
[2022-08-08] VITALS (8 sets, daily range): BP systolic 163; BP diastolic 79; PULSE 83–96; RESP 16–18; TEMP 36.6; O2SAT 91–93
[2022-08-08] MEDS: LEVALBUTEROL NEB 1.25 MG/3 ML 0.63 MG INHALATION ×3 (01:13→13:26)
[2022-08-08] MEDS: PIPERACILLN/TAZ 3.375GM/NS50ML 3.375 GM/50 ML BAG IVPB ×3 (01:36→11:30)
[2022-08-08 07:46] LABS: Glucose Point of Care 124 mg/dl (65-105)
[2022-08-08] MEDS: glipiZIDE 5 MG TABLET PO (07:53)
[2022-08-08 08:22] LABS: Basophils Absolute Auto 0.1 K/mm3 (0.0-0.1); Basophils Percent Auto 0.4 % (0.2-1.2); Eosinophils Absolute Auto 0.1 K/mm3 (0-0.3); Eosinophils Percent Auto 0.8 % (0-4.4); Hematocrit 38.5 % (42.0-52.0); Hemoglobin 12.2 g/dL (14.0-18.0); Immature Granulocyte Absolute 0.17 K/mm3 (0.00-0.031); Immature Granulocyte Percent A 1.1 % (0-0.5); Lymphocytes Absolute Auto 1.77 K/mm3 (0.9-3.2); Mean Corpuscular HGB Conc 31.7 g/dl (32-36); Mean Corpuscular Hemoglobin 29.8 pg (26-34); Mean Corpuscular Volume 93.9 fl (80-100); Mean Platelet Volume 10.6 fl (7.4-10.4); Monocytes Absolute Auto 1.5 K/mm3 (0.1-0.6); Monocytes Percent Auto 9.2 % (2.6-8.5); Neutrophils Absolute Auto 12.5 K/mm3 (1.3-6.7); Neutrophils Percent Auto 77.5 % (45.5-73.1); Platelet Count Result 226 k/mm3 (150-375); Red Cell Distribution Width 13.8 % (11.5-14.5); White Blood Count 16.1 K/mm3 (4.5-10.0)
[2022-08-08 08:30] LABS: Alanine Aminotransferase 30 U/L (6-50); Albumin Level 4.1 g/dL (3.5-5.1); Alkaline Phosphatase 81 U/L (38-126); Anion Gap 8 mmol/L (8-16); Aspartate Amino Transferase 25 U/L (17-59); Bilirubin,Total 1.4 mg/dL (0.2-1.3); Blood Urea Nitrogen 16 mg/dL (9-20); Calcium 8.8 mg/dL (8.4-10.2); Carbon Dioxide 27 mmol/L (22-30); Chloride 103 mmol/L (98-107); Estimated CRCL calculation 49 ml/min; Estimated Glomerular Filt Rate 49; Glucose 129 mg/dL (65-110); Potassium 4.1 mmol/L (3.4-5.0); Sodium 138 mmol/L (137-145)
[2022-08-08] MEDS: ASCORBIC ACID 500 MG TABLET PO (08:54)
[2022-08-08] MEDS: PANTOPRAZOLE 40 MG TABLET PO (08:54)
[2022-08-08] MEDS: CHOLECALCIFEROL 1,000 UNITS TABLET 5000 UNITS PO (08:54)
[2022-08-08] MEDS: FAMOTIDINE 20 MG TABLET PO (08:54)
[2022-08-08] MEDS: GABAPENTIN 100 MG CAPSULE 200 MG PO (08:59)
[2022-08-08 11:19] LABS: Glucose Point of Care 140 mg/dl (65-105)
--- NOTE | 2022-08-08 12:57 | PM.DS ---
DS: Admitting Diagnosis Discharge Date 08/08/22 Admitting Diagnosis pneumonia DS: Discharge Diagnosis Discharge Diagnosis (1) Pneumonia: Code(s): J18.9 - Pneumonia, unspecified organism Status: Acute Assessment and Plan: Patient was recently discharged from here with COVID. He has leukocytosis. The patient was started on Levaquin and Zosyn then transitioned to levoquin Blood cultures no growth to date Sputum cultures if obtainable. Continue with nebulizer treatment Tailor antibiotics according to cultures and sensitivities. WBC trending down. (2) Normal pressure hydrocephalus: Code(s): G91.2 - (Idiopathic) normal pressure hydrocephalus Status: Acute Assessment and Plan: This CT scan was unchanged from previous. Patient may follow-up with neuro surgery outpatient [facility]. The patient has chronic gait instability. He has been on meclizine (3) Benign prostatic hyperplasia with lower urinary tract symptoms: Code(s): N40.1 - Benign prostatic hyperplasia with lower urinary tract symptoms Status: Acute Assessment and Plan: Continue with current treatment (4) Chronic obstructive pulmonary disease: Code(s): J44.9 - Chronic obstructive pulmonary disease, unspecified Status: Acute Assessment and Plan: Continue with nebulizer treatment (5) Type 2 diabetes mellitus: Qualifiers: Diabetes mellitus correction insulin use: without intermodal customer service use Diabetes mellitus complication status: with neurologic complications Diabetes mellitus complication detail: with unspecified neuropathy Qualified Code(s): E11.40 - Type 2 diabetes mellitus with diabetic neuropathy, unspecified Code(s): E11.9 - Type 2 diabetes mellitus without complications Status: Acute Assessment and Plan: Accu-Cheks AC and HS with sliding scale insulin and hypoglycemic protocol Continue glipizide Check A1c Plan Abdominal pelvis CT was completed but was unable to be read at this time. This is due to it a radiology soft for problem at this time. DS: Summary Hospital Course Reason for hospitalization: pneumonia, weakness Hospital Course: This is an 82-year-old the patient with a past medical history of normal pressure hydrocephalus, COPD, GERD, hyperlipidemia, type 2 diabetes, CKD, and BPH presented to the ED with generalized weakness and productive cough. Patient's white count was found to be 28.3, D-dimer of 1.16, and lactic of 2.4. Troponin negative and urine negative. Chest x-ray with bibasilar opacities left greater than right contracts representative of atelectasis versus pneumonia versus pulmonary edema. CT head unchanged from previous with possible normal pressure hydrocephalus present. CT abdomen pelvis revealing lower lobe pneumonia and hiatal hernia. Patient was started on Levaquin and Zosyn for treatment of pneumonia. PT and OT evaluated patient due to weakness. Patient improved in able to walk with a walker as well as stand his own. Blood cultures no growth to date. Patient's white count improved with antibiotic therapy. Lactic acid normalized. Patient did transition to Levaquin p.o. 750 mg Q 48 hours. Is advised that patient follow-up with Neurosurgery as an outpatient for NPH. patient's vital signs and lab stable discharge. Time Spent with Patient Time attestation: Total time spent providing and/or coordinating discharge services: Exam Narrative: GENERAL: Comfortable, no acute distress HENMT: moist mucous membranes EYES: EOM intact b/l NECK: no lymphadenopathy RESPIRATORY: Distant breath sounds CARDIO: RRR GI: soft, nontender, bowel sounds present SKIN: no rashes EXTREMITIES: no edema, redness or tenderness DS: Data Data Completed and Pending Labs on day of discharge: Labs from last 24 hours 08/08/22 08/08/22 08/08/22 11:14 07:50 07:50 WBC 16.1 H RBC 4.10 L Hgb 1
== END 2022-08-08 14:15 | disposition home or self-care (01) | DRG 194 ==
LOC: ANHED 19:44 → ANH3MEDSUR 19:55
PROVIDERS: Nurse Practitioner; Admitting Provider Family Medicine; Emergency Provider Emergency Medicine; PCP Internal Medicine; Visit Provider Internal Medicine Critical Care Medicine
DX: J18.9 Pneumonia, unspecified organism (principal); G91.2 (Idiopathic) normal pressure hydrocephalus; N40.1 Benign prostatic hyperplasia with lower urinary tract symptoms; J44.9 Chronic obstructive pulmonary disease, unspecified; E11.42 Type 2 diabetes mellitus with diabetic polyneuropathy; E11.22 Type 2 diabetes mellitus with diabetic chronic kidney disease; N18.30 Chronic kidney disease, stage 3 unspecified; K21.9 Gastro-esophageal reflux disease without esophagitis; G25.81 Restless legs syndrome; E78.5 Hyperlipidemia, unspecified; Z87.891 Personal history of nicotine dependence; Z86.16 Personal history of COVID-19
CPT/HCPCS: 36415; 36600; 70450; 71045; 74177; 80053; 81003; 82805; 82948; 83036; 83605; 83880; 84443; 84484; 85025; 85380; 85610; 85730; 87040; 93005; 93970; 94640; 96374; 97110; 97116; 97161; 97165; 97530; 97535; 99285; A9270; J1956; J2405; J2543; J7030; Q9967

== ENCOUNTER 2022-09-04 12:49 | Outpatient (NON) | payer OTHER, SELFPAY | END 2022-09-04 12:50 | disposition home or self-care (01) | LOC: ANHLAB 09-05 12:51 | PROVIDERS: PCP Internal Medicine; Visit Provider Nurse Practitioner | DX: C44.629 Squamous cell carcinoma of skin of left upper limb, including shoulder (principal) | CPT/HCPCS: 88305 ==

== ENCOUNTER 2022-09-17 11:53 | Outpatient (NON) | payer OTHER, SELFPAY | END 2022-09-17 11:54 | disposition home or self-care (01) | LOC: ANHLAB 09-19 11:55 | PROVIDERS: PCP Family Medicine; Visit Provider Nurse Practitioner | DX: C44.629 Squamous cell carcinoma of skin of left upper limb, including shoulder (principal) | CPT/HCPCS: 88304 ==

== ENCOUNTER 2022-11-27 14:44 | Outpatient (CLI) | payer OTHER, SELFPAY ==
[2022-11-27 15:34] LABS: Anion Gap 7 mmol/L (8-16); Blood Urea Nitrogen 25 mg/dL (9-20); Calcium 8.8 mg/dL (8.4-10.2); Carbon Dioxide 37 mmol/L (22-30); Chloride 95 mmol/L (98-107); Estimated Glomerular Filt Rate 34; Glucose 158 mg/dL (65-110); Potassium 4.1 mmol/L (3.4-5.0); Sodium 139 mmol/L (137-145)
== END 2022-11-27 14:45 | disposition home or self-care (01) ==
PROVIDERS: PCP Nurse Practitioner; Visit Provider Nurse Practitioner
DX: N18.30 Chronic kidney disease, stage 3 unspecified (principal)
CPT/HCPCS: 36415; 80048

== ENCOUNTER 2023-03-21 14:48 | Outpatient (CLI) | payer OTHER, SELFPAY ==
[2023-03-21 15:33] LABS: Alanine Aminotransferase 38 U/L (6-50); Albumin Level 4.7 g/dL (3.5-5.1); Alkaline Phosphatase 87 U/L (38-126); Anion Gap 11 mmol/L (8-16); Aspartate Amino Transferase 34 U/L (17-59); Bilirubin,Total 0.9 mg/dL (0.2-1.3); Blood Urea Nitrogen 30 mg/dL (9-20); Calcium 9.2 mg/dL (8.4-10.2); Carbon Dioxide 32 mmol/L (22-30); Chloride 97 mmol/L (98-107); Cholesterol 111 mg/dL (0-200); Estimated Glomerular Filt Rate 36; Glucose 77 mg/dL (65-110); HDL Direct 56 mg/dL; Hemoglobin A1C 6.3 % (<5.7); Potassium 4.4 mmol/L (3.4-5.0); Sodium 140 mmol/L (137-145); Triglycerides 102 mg/dL (<150)
[2023-03-21 15:42] LABS: LDL Cholesterol Direct 39 mg/dL
== END 2023-03-21 14:49 | disposition home or self-care (01) ==
LOC: ANHLAB 14:49
PROVIDERS: PCP Nurse Practitioner; Visit Provider Nurse Practitioner
DX: E78.5 Hyperlipidemia, unspecified (principal); E11.9 Type 2 diabetes mellitus without complications
CPT/HCPCS: 36415; 80053; 80061; 83036

== ENCOUNTER 2023-09-13 14:02 | Outpatient (CLI) | payer OTHER, SELFPAY ==
--- NOTE | ~2023-09-13 | US_ITS ---
EXAMINATION: US renal BI DATE: 09/13/2023 15:15 INDICATION: Stage IIIB chronic kidney disease TECHNIQUE: Multiple ultrasound grayscale images of the kidneys were obtained. COMPARISON: CT dated 08/06/2022 FINDINGS: The right kidney measures 10.0 x 5.3 x 4.8 cm. The left kidney measures 10.2 x 5.7 x 4.8 cm. Bilatera l diffuse mildly increased renal cortical echogenicity suggestive of medical renal disease. There is no hydronephrosis in either kidney. No stones identified. The bladder is normal with bilateral urete ral jets visualized on color Doppler. IMPRESSION: 1. Bilateral mild diffuse renal cortical atrophy which can be seen with medical renal disease. No hy dronephrosis. Reviewed, dictated and finalized at location A. IMPRESSION: 1. Bilateral mild diffuse renal cortical atrophy which can be seen with medica l renal disease. No hydronephrosis.
[2023-09-13 16:47] LABS: Hematocrit 45.7 % (42.0-52.0); Hemoglobin 14.4 g/dL (14.0-18.0); Mean Corpuscular HGB Conc 31.5 g/dl (32-36); Mean Corpuscular Hemoglobin 30.1 pg (26-34); Mean Corpuscular Volume 95.4 fl (80-100); Mean Platelet Volume 10.9 fl (7.4-10.4); Platelet Count Result 262 k/mm3 (150-375); Red Blood Count 4.79 M/mm3 (4.6-6.20); Red Cell Distribution Width 14.4 % (11.5-14.5); White Blood Count 10.9 K/mm3 (4.5-10.0)
[2023-09-13 17:00] LABS: Anion Gap 11 mmol/L (4-12); Blood Urea Nitrogen 30 mg/dL (9-20); Calcium 9.7 mg/dL (8.4-10.2); Carbon Dioxide 29 mmol/L (22-30); Chloride 103 mmol/L (98-107); Creatine Kinase 65 U/L (55-170); Estimated Glomerular Filt Rate 36; Glucose 66 mg/dL (65-110); Phosphorus 3.8 mg/dL (2.5-4.5); Potassium 4.2 mmol/L (3.4-5.0); Sodium 143 mmol/L (137-145)
[2023-09-13 17:06] LABS: Complement C3 160 mg/dL (88-165)
[2023-09-13 17:10] LABS: Parathyroid Intact 132.3 pg/mL (7.5-53.5)
[2023-09-13 17:39] LABS: Erythrocyte Sedimentation Rate 14 mm/hr (0-20)
[2023-09-16 11:18] LABS: Kappa\\Lambda Light Chains 3.25 (0.26-1.65); Lambda Light Chain 14.1 mg/L (5.7-26.3)
[2023-09-16 14:58] LABS: Complement Total CH50 >60 U/mL (31-60)
== END 2023-09-13 14:03 | disposition home or self-care (01) ==
PROVIDERS: PCP Nurse Practitioner; Visit Provider Internal Medicine Nephrology
DX: N18.32 Chronic kidney disease, stage 3b (principal); R73.02 Impaired glucose tolerance (oral); N26.1 Atrophy of kidney (terminal)
CPT/HCPCS: 36415; 76775; 80069; 82550; 83883; 83970; 85027; 85652; 86038; 86160; 86162; 86334

== ENCOUNTER 2023-11-25 20:02 | Emergency (ER) | payer OTHER, SELFPAY ==
[2023-11-25] VITALS (9 sets, daily range): BP systolic 119–169; BP diastolic 54–132; PULSE 89–101; RESP 13–20; TEMP 36.3–36.8; O2SAT 94–98
--- NOTE | ~2023-11-25 | CT_ITS ---
EXAMINATION: CT brain wo con DATE: 11/25/2023 23:21 INDICATION: Weakness . TECHNIQUE: Computed tomography (CT) of the head was performed without intravenous contrast. The mA wa s adjusted according to patient size. Iterative reconstruction technique was employed. The dose-lengt h product was 681.00 mGy-cm. COMPARISON: 08/06/2022. FINDINGS: No acute intracranial hemorrhage or extra-axial fluid collection. No hydrocephalus, mass, or herniation. No acute ischemic infarct. Unremarkable dural venous sinus attenuation. No acute osseous abnormality. Small left frontal contusion. Aerated secretions in several posterior ethmoid air cells, mild mucosal thickening in the inferior bi lateral frontal and ethmoid sinuses, maxillary sclerosis, the remaining aerated spaces are clear. Moderate atrophy and mild chronic white matter change. Atherosclerotic intracranial calcification. Ri ght posterior fossa arachnoid cyst. IMPRESSION: No acute intracranial process. Aerated secretions in several posterior ethmoid air cells as can be seen with acute sinusitis. Chroni c right maxillary sinusitis. Reviewed, dictated and finalized at location K. IMPRESSION: No acute intracranial process. Aerated secretions in several posterior ethmoid air cells as can be seen with a cute sinusitis. Chronic right maxillary sinusitis.
--- NOTE | ~2023-11-25 | XR_ITS ---
EXAMINATION: XR chest 1V portable Exam Date/Time: 11/25/2023 22:20 CDT HISTORY: presyncope, BILATERAL LOWER EXTREMITY WEAKNESS Comparison: 08/06/2022. RESULT: Lines, tubes, and devices: None. Lungs and pleura: Streaky bibasilar linear opacities. Mild left costophrenic angle blunting. Cardiomediastinal silhouette: Stable heart size. Left hemidiaphragm elevation. Right hemidiaphragm e ventration. Other: No acute osseous or upper abdominal finding. IMPRESSION: Bibasilar opacities likely represent scar. Chronic left pleural blunting versus small left pleural ef fusion. Reviewed, dictated and finalized at location K. IMPRESSION: Bibasilar opacities likely represent scar. Chronic left pleural blunting versus small left pleural effusion.
--- NOTE | 2023-11-25 22:15 | ECG_ITS ---
Test Date: 2023-11-25 22:38:24 Measurements Intervals [place] Rate: 94 P: 0 PA: 0 QRS: -27 QRSD: 93 T: 0 QT: 335 QTc: 420 Interpretive Statements SINUS RHYTHM ATRIAL PREMATURE COMPLEXES LOW QRS VOLTAGE IN PRECORDIAL LEADS INCOMPLETE RIGHT BUNDLE BRANCH BLOCK NONSPECIFIC T-WAVE ABNORMALITY- INF/HIGH LAT LEADS BASELINE ARTIFACT- I, II, III, AVR, AVL, AVF, V2, V4-V6 BORDERLINE ECG No previous ECG available for comparison Electronically Signed On 11-26-2023 07:11:57 CDT by Eyad Campos D.O.
[2023-11-25] MEDS: SODIUM CHLORIDE 0.9% IV 1,000 ML 999 ML IV CONT (22:38)
[2023-11-25 22:46] LABS: Basophils Absolute Auto 0.1 K/mm3 (0.0-0.1); Basophils Percent Auto 0.5 % (0.2-1.2); Eosinophils Absolute Auto 0.4 K/mm3 (0-0.3); Eosinophils Percent Auto 3.4 % (0-4.4); Hematocrit 45.2 % (42.0-52.0); Hemoglobin 14.7 g/dL (14.0-18.0); Immature Granulocyte Percent A 0.9 % (0-0.5); Lymphocytes Absolute Auto 2.79 K/mm3 (0.9-3.2); Lymphocytes Percent Auto 25.3 % (18.3-44.2); Mean Corpuscular HGB Conc 32.5 g/dl (32-36); Mean Corpuscular Hemoglobin 30.6 pg (26-34); Mean Platelet Volume 10.6 fl (7.4-10.4); Neutrophils Absolute Auto 6.7 K/mm3 (1.3-6.7); Neutrophils Percent Auto 60.9 % (45.5-73.1); Platelet Count Result 266 k/mm3 (150-375); Red Blood Count 4.81 M/mm3 (4.6-6.20); Red Cell Distribution Width 13.2 % (11.5-14.5)
[2023-11-25 22:57] LABS: Partial Thromboplastin Time 27.6 Seconds (22.3-36.8); Prothrombin Time 13.8 Seconds (11.1-14.7)
[2023-11-25 23:03] LABS: Alanine Aminotransferase 31 U/L (6-50); Albumin Level 4.9 g/dL (3.5-5.1); Alkaline Phosphatase 87 U/L (38-126); Anion Gap 13 mmol/L (4-12); Aspartate Amino Transferase 31 U/L (17-59); Bilirubin,Total 0.4 mg/dL (0.2-1.3); Blood Urea Nitrogen 28 mg/dL (9-20); Calcium 9.4 mg/dL (8.4-10.2); Carbon Dioxide 30 mmol/L (22-30); Chloride 95 mmol/L (98-107); Estimated CRCL calculation 33 ml/min; Estimated Glomerular Filt Rate 32; Glucose 132 mg/dL (65-110); Potassium 3.8 mmol/L (3.4-5.0); Sodium 138 mmol/L (137-145)
[2023-11-25 23:11] LABS: Appearance Urine Clear (Clear); Bilirubin Urine Negative (Negative); Blood Urine Negative (Negative); Color Urine Yellow (Yellow); Glucose Urine UA Negative (Negative); Ketones Urine Negative (Negative); Leukocyte Esterase Ur Negative LEU/UL (Negative); Nitrate Urine Negative (Negative); Protein Urine Negative (Negative); Urobilinogen Urine 0.2 mg/dL (<2.0); pH Urine 5.5 (5.0-9.0)
[2023-11-25 23:14] LABS: NT Pro B Type Natriuretic Pept 137 pg/mL (19.9-100); Troponin I < 0.012 ng/mL (0.000-0.034)
[2023-11-25 23:15] LABS: Add Urine Microscopic? NO
[2023-11-25 23:45] LABS: Influenza A QL RT-PCR Negative (Negative); Influenza B QL RT-PCR Negative (Negative); RSV RNA, RT-PCR Negative (Negative); SARS-CoV-2 RNA PCR Negative (Negative)
[2023-11-26 00:01] VITALS: BP 157/95; PULSE 98; RESP 20; O2SAT 100
[2023-11-26 00:16] VITALS: BP 155/91; PULSE 98; RESP 16; O2SAT 96
[2023-11-26 00:31] VITALS: BP 153/81; PULSE 99; RESP 17; O2SAT 94
[2023-11-26 00:46] VITALS: BP 159/86; PULSE 102; RESP 13
--- NOTE | 2023-11-26 00:52 | ED.GENADULT ---
HPI - General Adult General Chief complaint: Weakness Stated complaint: weakness in bilateral legs Time Seen by Provider: 11/25/23 21:37 History of Present Illness HPI narrative: This is an 83-year-old male history of poor balance and lower extremity weakness presenting after a presyncopal event today high [employer]. Patient wants eating dinner and had several beers with his . He tried to get up he became lightheaded and felt very weak in his legs. He had to be assisted by several bystanders in the restaurant to his car. One of them said that he thought the cora was having a stroke and he should come to the hospital for evaluation. At this time the patient says he has recovered and is back to normal. He no longer feels weak in the legs. Patient notes that he does not drink very much water. He is incontinent of urine so he restricts his water use of the does not have to change his diaper. Patient also admits to having several beers at dinner. Patient denies fevers chills nausea vomiting diarrhea chest pain difficulty breathing or abdominal pain. Related Data Home Medications Medication Instructions Recorded Confirmed ascorbic acid (vitamin C) 500 mg 500 mg PO DAILY 10/05/21 10/02/23 capsule cholecalciferol (vitamin D3) 125 125 mcg PO DAILY 10/05/21 10/02/23 mcg (5,000 unit) capsule zinc acetate 50 mg (zinc) capsule 50 mg PO DAILY 10/05/21 10/02/23 latanoprost 0.005 % eye drops 1 drp EACH EYE HS 07/01/22 10/02/23 Allergies Allergy/AdvReac Type Severity Reaction Status Date / Time No Known Allergies Allergy Verified 10/02/23 14:35 [facility] Past Medical History Medical History Benign positional vertigo Benign prostatic hyperplasia with lower urinary tract symptoms Chronic kidney disease, stage 3 Chronic neck pain Chronic obstructive pulmonary disease Exposure to asbestos Gastroesophageal reflux disease Hyperlipidemia Impaired glucose tolerance Polyarthritis Pulmonary asbestosis Restless legs syndrome Type 2 diabetes mellitus Surgical History Surgical History History of hernia repair Family History Family History Mother Family history of malignant neoplasm Patient's mother is Father Family history of malignant neoplasm Patient's father is Social History Social History Social History: The patient lives with significant other shannen. He has 3 children. He is retired from [employer] Surrogate medical decision maker: Krunal Leal, son. Code status: Full code. Smoking packs per day: 1 Smoking cigarettes per day: 20.0 Years smoked: 15 Smoking pack-years: 15.00 Smoking status: Former smoker Tobacco type: cigarettes Second hand tobacco smoke exposure: No Smoking end date: 05/06/86 Alcohol intake: current Drinks per week: 14 Substance use: never Substance use type: does not use Do You Feel Safe in your Home?: Yes Lack of Transportation: No Lack of Food: Never True Current Housing: I Have Housing Concerned About Future Housing: No Difficulty Paying Gas/Electric Bills: No Difficulty Paying for Meds: No Currently Unemployed: No Education: High School Diploma/GED Difficulty w/ Childcare or Family Care: No Additional living arrangements comments: Lives in [place] with significant other. Occupation/Education: retired Additional occupation/education comments: Retired. Gender identity (if verbalized by the patient): Male Spiritual care concerns: No Exam Narrative: APPEARANCE: No apparent distress. Head: atraumatic. EYES: EOMI, NOSE: Atraumatic NECK: Trachea midline RESPIRATORY: No increased rate of breathing clear auscultation CARDIOVASCULAR: RRR, no peripheral edema, no orthostatic
[2023-11-26 01:01] VITALS: BP 169/102; PULSE 95; RESP 18
--- NOTE | 2023-11-26 01:26 | ECG_ITS ---
Test Date: 2023-11-26 01:39:43 Measurements Intervals [place] Rate: 92 P: 3 LA: 159 QRS: -20 QRSD: 83 T: -12 QT: 323 QTc: 400 Interpretive Statements SINUS RHYTHM WITH OCCASIONAL SUPRAVENTRICULAR PREMATURE COMPLEXES INCOMPLETE RIGHT BUNDLE BRANCH BLOCK LOW QRS VOLTAGE IN PRECORDIAL LEADS BORDERLINE T WAVE ABNORMALITY- INFERIOR LEADS BASELINE ARTIFACT- I, II, AVR, AVL, AVF BORDERLINE ECG Compared to ECG 11/25/2023 22:38:24 NO SIGNIFICANT CHANGE Electronically Signed On 11-26-2023 07:15:38 CDT by Eyad Campos D.O.
[2023-11-26 01:52] LABS: Troponin I < 0.012 ng/mL (0.000-0.034)
== END 2023-11-26 02:45 | disposition home or self-care (01) ==
PROVIDERS: Emergency Provider Emergency Medicine; PCP Nurse Practitioner
DX: E11.22 Type 2 diabetes mellitus with diabetic chronic kidney disease (principal); N18.30 Chronic kidney disease, stage 3 unspecified; N40.1 Benign prostatic hyperplasia with lower urinary tract symptoms; J61 Pneumoconiosis due to asbestos and other mineral fibers; J44.9 Chronic obstructive pulmonary disease, unspecified; E78.5 Hyperlipidemia, unspecified; K21.9 Gastro-esophageal reflux disease without esophagitis; G25.81 Restless legs syndrome; M13.0 Polyarthritis, unspecified; Z87.891 Personal history of nicotine dependence; Z79.84 Long term (current) use of oral hypoglycemic drugs; Z79.899 Other long term (current) drug therapy; I49.1 Atrial premature depolarization; I45.10 Unspecified right bundle-branch block; R94.31 Abnormal electrocardiogram [ECG] [EKG]
CPT/HCPCS: 36415; 70450; 71045; 80053; 81003; 83880; 84484; 85025; 85610; 85730; 87637; 93005; 96360; 99284; J7030

== ENCOUNTER 2024-01-14 13:50 | Emergency (ER) | payer OTHER, SELFPAY ==
--- NOTE | ~2024-01-14 | CT_ITS ---
EXAMINATION: CT brain wo con DATE: 01/14/2024 14:21 INDICATION: Head injury TECHNIQUE: Computed tomography (CT) of the head was performed without intravenous contrast. Sagittal and coronal reconstructions were performed. Echo dose Malcolm head The dose-length product was 605.3 3 mGy-cm. COMPARISON: head CT dated 11/25/2023 FINDINGS: No fracture. No acute intracranial hemorrhage, acute infarction or abnormal extra axial fluid collect ion. There is mild scattered white matter hypoattenuation consistent with chronic small vessel ischem ic disease. Symmetric prominence of the sulci and ventricles consistent with moderate age-appropriate diffuse cerebral volume loss. No mass/mass effect. Thickened sclerotic cohn to the right maxillary sinus likely sequela of chronic sinusitis. The orbits and mastoid air cells are normal. IMPRESSION: 1. No fracture or acute intracranial process. 2. Age-related changes including moderate diffuse volume loss and mild scattered white matter hypoatt enuation consistent with chronic small vessel ischemic disease. Reviewed, dictated and finalized at location B. IMPRESSION: 1. No fracture or acute intracranial process. 2. Age-related changes including moderate diffuse volume loss and mild scattere d white matter hypoattenuation consistent with chronic small vessel ischemic di sease.
[2024-01-14 13:52] VITALS: BP 145/88; PULSE 90; RESP 20; TEMP 36.3; O2SAT 96
--- NOTE | 2024-01-14 13:58 | ECG_ITS ---
Test Date: 2024-01-14 14:22:38 Measurements Intervals [place] Rate: 89 P: 49 MA: 151 QRS: 0 QRSD: 93 T: 48 QT: 358 QTc: 436 Interpretive Statements SINUS RHYTHM WITH FREQUENT SUPRAVENTRICULAR PREMATURE COMPLEXES INCOMPLETE RIGHT BUNDLE BRANCH BLOCK LOW QRS VOLTAGE IN PRECORDIAL LEADS BASELINE ARTIFACT- I, II, III, AVR, AVL, AVF ABNORMAL ECG Compared to ECG 11/26/2023 01:39:43 NO SIGNIFICANT CHANGE Electronically Signed On 01-14-2024 14:55:22 CDT by Eyad Campos D.O.
--- NOTE | 2024-01-14 13:59 | ED.HEATRA ---
HPI - Head Injury General Chief complaint: Head Injury <Hillary Chandler PA-C - Last Filed: 01/14/24 14:00> Stated complaint: sent by PCP for head injury that occured Saturday <Hillary Chandler PA-C - Last Filed: 01/14/24 14:00> Time Seen by Provider: 01/14/24 19:33 <Hillary Chandler PA-C - Last Filed: 01/14/24 14:00> Focused HPI: 83-year-old male presents to the emergency department for a fall and head injury that occurred 3 days ago. Patient states he was reaching on the top shelf of the pantry when he became dizzy and fell backwards. His girlfriend witnessed the event and states she saw the patient hit his head on the ground. The patient does not believe he hit his head. He denies loss of consciousness, chest pain or shortness of breath, vision changes or focal numbness or weakness. He states yesterday he felt ringing in his left ear for few seconds which concerned him in is why he came to the ED today. He is not anticoagulated. He has no complaints at this time is states he feels in his normal state of health. He also notes that he ambulates with a cane and was not using his cane when he fell. GENERAL: Well-appearing, well-nourished, and in no acute distress. HEAD: Normocephalic, atraumatic. NECK: No midline cervical spinous tenderness, step-offs or deformities BACK: No thoracolumbar spinous tenderness, step-offs or deformities CHEST: Clear to auscultation. ?No respiratory distress. HEART: Regular rate and rhythm.? NEURO: ?Alert and oriented x3. Patient screened in triage and initial orders placed.? ?Additional care and disposition to be based upon?diagnostic testing and treatment. <Hillary Chandler PA-C - Last Filed: 01/14/24 14:00> History of Present Illness HPI Narrative: Abdomen presents emergency department chief complaint of injury. Patient reports that on Saturday he fell backwards striking his head patient states that he has had some ringing in his ear intermittently since the injury patient reports that currently he is asymptomatic and only hungry. Patient denies chest pain denies shortness of breath denies syncope. The patient is not on anticoagulants patient called his primary care provider who told to come to the department <Dustin Moreno MD - Last Filed: 01/14/24 19:57> Related Data Home medications: Home Medications Medication Instructions Recorded Confirmed ascorbic acid (vitamin C) 500 mg 500 mg PO DAILY 10/05/21 12/06/23 capsule cholecalciferol (vitamin D3) 125 125 mcg PO DAILY 10/05/21 12/06/23 mcg (5,000 unit) capsule zinc acetate 50 mg (zinc) capsule 50 mg PO DAILY 10/05/21 12/06/23 latanoprost 0.005 % eye drops 1 drp EACH EYE HS 07/01/22 12/06/23 <Hillary Chandler PA-C - Last Filed: 01/14/24 14:00> Allergies/Adverse reactions: Allergies Allergy/AdvReac Type Severity Reaction Status Date / Time No Known Allergies Allergy Verified 01/14/24 13:51 <Hillary Chandler PA-C - Last Filed: 01/14/24 14:00> Review of Systems Review of Systems: A 10 system review of systems was completed on the patient and is negative except for what is stated in the HPI. Nursing and ancillary documentation was reviewed. <Dustin Moreno MD - Last Filed: 01/14/24 19:57> [facility] Past Medical History Medical History: Medical History Benign positional vertigo Benign prostatic hyperplasia with lower urinary tract symptoms Chronic kidney disease, stage 3 Chronic neck pain Chronic obstructive pulmonary disease Exposure to asbestos Gastroesophageal reflux disease Hyperlipidemia Impaired glucose tolerance Polyarthritis Pulmonary asbestosis Restless legs syndrome Type 2 diabetes mellitus <Hillary Chandler PA-C - Last Filed: 01/14/24 14:00> Surgical History Surgical History: Surgical History History
[2024-01-14 14:34] LABS: Basophils Absolute Auto 0.1 K/mm3 (0.0-0.1); Basophils Percent Auto 0.5 % (0.2-1.2); Eosinophils Absolute Auto 0.5 K/mm3 (0-0.3); Eosinophils Percent Auto 4.9 % (0-4.4); Hematocrit 44.4 % (42.0-52.0); Immature Granulocyte Absolute 0.04 K/mm3 (0.00-0.031); Immature Granulocyte Percent A 0.4 % (0-0.5); Lymphocytes Absolute Auto 1.97 K/mm3 (0.9-3.2); Lymphocytes Percent Auto 20.1 % (18.3-44.2); Mean Corpuscular HGB Conc 31.5 g/dl (32-36); Mean Corpuscular Hemoglobin 30.1 pg (26-34); Mean Corpuscular Volume 95.5 fl (80-100); Mean Platelet Volume 10.9 fl (7.4-10.4); Monocytes Absolute Auto 0.9 K/mm3 (0.1-0.6); Monocytes Percent Auto 9.2 % (2.6-8.5); Neutrophils Absolute Auto 6.4 K/mm3 (1.3-6.7); Neutrophils Percent Auto 64.9 % (45.5-73.1); Platelet Count Result 240 k/mm3 (150-375); Red Blood Count 4.65 M/mm3 (4.6-6.20); Red Cell Distribution Width 13.4 % (11.5-14.5); White Blood Count 9.8 K/mm3 (4.5-10.0)
[2024-01-14 14:42] LABS: Prothrombin Time 13.9 Seconds (11.1-14.7)
[2024-01-14 14:43] LABS: Alanine Aminotransferase 28 U/L (6-50); Albumin Level 4.3 g/dL (3.5-5.1); Alkaline Phosphatase 71 U/L (38-126); Anion Gap 11 mmol/L (4-12); Aspartate Amino Transferase 29 U/L (17-59); Bilirubin,Total 0.4 mg/dL (0.2-1.3); Blood Urea Nitrogen 24 mg/dL (9-20); Carbon Dioxide 28 mmol/L (22-30); Chloride 101 mmol/L (98-107); Estimated CRCL calculation 39 ml/min; Estimated Glomerular Filt Rate 39; Glucose 115 mg/dL (65-110); Magnesium 2.1 mg/dL (1.6-2.3); Potassium 3.6 mmol/L (3.4-5.0); Sodium 140 mmol/L (137-145)
[2024-01-14 14:57] LABS: Troponin I < 0.012 ng/mL (0.000-0.034)
[2024-01-14 19:36] VITALS: BP 131/64; PULSE 87; RESP 18; TEMP 36.5; O2SAT 97
== END 2024-01-14 20:26 | disposition home or self-care (01) ==
PROVIDERS: Physician Assistant; Emergency Provider Emergency Medicine; PCP Nurse Practitioner
DX: S09.90XA Unspecified injury of head, initial encounter (principal); E11.22 Type 2 diabetes mellitus with diabetic chronic kidney disease; N18.30 Chronic kidney disease, stage 3 unspecified; J61 Pneumoconiosis due to asbestos and other mineral fibers; J44.9 Chronic obstructive pulmonary disease, unspecified; N40.1 Benign prostatic hyperplasia with lower urinary tract symptoms; K21.9 Gastro-esophageal reflux disease without esophagitis; M19.90 Unspecified osteoarthritis, unspecified site; G25.81 Restless legs syndrome; Z87.891 Personal history of nicotine dependence; Z79.899 Other long term (current) drug therapy; Z79.84 Long term (current) use of oral hypoglycemic drugs; W18.39XA Other fall on same level, initial encounter; I49.1 Atrial premature depolarization; I45.10 Unspecified right bundle-branch block
CPT/HCPCS: 36415; 70450; 80053; 83735; 84484; 85025; 85610; 85730; 93005; 99284

== ENCOUNTER 2024-03-05 14:40 | Outpatient (CLI) | payer OTHER, SELFPAY ==
[2024-03-05 15:21] LABS: Hematocrit 43.5 % (42.0-52.0); Hemoglobin 14.5 g/dL (14.0-18.0); Mean Corpuscular HGB Conc 33.3 g/dl (32-36); Mean Corpuscular Volume 92.9 fl (80-100); Platelet Count Result 255 k/mm3 (150-375); Red Blood Count 4.68 M/mm3 (4.6-6.20); Red Cell Distribution Width 13.3 % (11.5-14.5)
[2024-03-05 15:27] LABS: Albumin Level 4.4 g/dL (3.5-5.1); Anion Gap 11 mmol/L (4-12); Blood Urea Nitrogen 24 mg/dL (9-20); Calcium 8.9 mg/dL (8.4-10.2); Carbon Dioxide 26 mmol/L (22-30); Chloride 100 mmol/L (98-107); Estimated Glomerular Filt Rate 42; Glucose 152 mg/dL (65-110); Phosphorus 3.2 mg/dL (2.5-4.5); Sodium 137 mmol/L (137-145)
[2024-03-05 15:30] LABS: Creatinine Urine 235.3 mg/dL
[2024-03-05 15:33] LABS: Total Protein Urine Random < 5 mg/dL
[2024-03-05 15:34] LABS: Ur Ttl Prot Creatinine Ratio < 0.02 mg/mg (0-0.20)
[2024-03-05 15:42] LABS: Parathyroid Intact 61.9 pg/mL (14.5-75.2)
== END 2024-03-05 14:41 | disposition home or self-care (01) ==
PROVIDERS: PCP Nurse Practitioner; Visit Provider Internal Medicine Nephrology
DX: N18.32 Chronic kidney disease, stage 3b (principal); E21.1 Secondary hyperparathyroidism, not elsewhere classified
CPT/HCPCS: 36415; 80069; 82306; 82570; 83970; 84156; 85027

== ENCOUNTER 2024-04-15 15:50 | Outpatient (CLI) | payer OTHER, SELFPAY ==
[2024-04-15 16:45] LABS: Alanine Aminotransferase 31 U/L (6-50); Albumin Level 4.4 g/dL (3.5-5.1); Alkaline Phosphatase 84 U/L (38-126); Anion Gap 3 mmol/L (4-12); Aspartate Amino Transferase 30 U/L (17-59); Bilirubin,Total 0.7 mg/dL (0.2-1.3); Blood Urea Nitrogen 30 mg/dL (9-20); Calcium 8.9 mg/dL (8.4-10.2); Carbon Dioxide 34 mmol/L (22-30); Chloride 101 mmol/L (98-107); Cholesterol 156 mg/dL (0-200); Estimated Glomerular Filt Rate 27; Glucose 156 mg/dL (65-110); HDL Direct 59 mg/dL; Potassium 4.1 mmol/L (3.4-5.0); Sodium 138 mmol/L (137-145); Triglycerides 307 mg/dL (<150)
[2024-04-15 16:56] LABS: LDL Cholesterol Direct 58 mg/dL
[2024-04-15 18:36] LABS: Hemoglobin A1C 6.9 % (<5.7)
== END 2024-04-15 15:51 | disposition home or self-care (01) ==
LOC: ANHLAB 15:52
PROVIDERS: PCP Nurse Practitioner; Visit Provider Nurse Practitioner
DX: E78.5 Hyperlipidemia, unspecified (principal); E11.9 Type 2 diabetes mellitus without complications
CPT/HCPCS: 36415; 80053; 80061; 83036

== ENCOUNTER 2024-07-26 13:49 | Inpatient (IN) | payer OTHER, MEDICAID, SELFPAY ==
[2024-07-26] VITALS (25 sets, daily range): BP systolic 93–129; BP diastolic 63–105; PULSE 102–128; RESP 12–27; TEMP 36.8; O2SAT 71–99; BMI 29.9
--- NOTE | ~2024-07-26 | XR_ITS ---
XR hip BI wo pelvis 07/31/2024 16:07 Indication: Hip pain after fall Procedure: 2 views each hip Comparison: No prior studies for comparison. Findings: Mild bilateral symmetric osteoarthritis of the hips. No fracture, subluxation or dislocatio n. No focal soft tissue abnormality. No foreign bodies. Impression: 1: Mild bilateral symmetric osteoarthritis of the hips. Reviewed, dictated and finalized at location A. Impression: 1: Mild bilateral symmetric osteoarthritis of the hips.
--- NOTE | ~2024-07-26 | XR_ITS ---
XR tibia fibula RT 2V 07/31/2024 16:07 INDICATION: Right leg pain after fall PROCEDURE: 2 view chest COMPARISON: No prior studies for comparison. FINDINGS: Fracture, dislocation or subluxation is not identified. There are degenerative calcaneal en thesophyte. There is mild osteoarthritis of the knee. The soft tissues appear within normal limits. No foreign bodies are identified. IMPRESSION: 1: NO ACUTE BONE OR JOINT ABNORMALITY IDENTIFIED. Reviewed, dictated and finalized at location A.
--- NOTE | ~2024-07-26 | XR_ITS ---
XR femur RT min 2V 07/31/2024 16:07 INDICATION: Status post fall. Right leg pain. PROCEDURE: 2 views right femur COMPARISON: No prior studies for comparison. FINDINGS: Fracture, dislocation or subluxation is not identified. Mild osteoarthritis of the right hi p. The soft tissues appear within normal limits. No foreign bodies are identified. IMPRESSION: 1: NO ACUTE BONE OR JOINT ABNORMALITY IDENTIFIED. Reviewed, dictated and finalized at location A.
--- NOTE | ~2024-07-26 | XR_ITS ---
XR chest 2V DATE: 07/26/2024 15:33 INDICATION: Chest pain TECHNIQUE: 2 views COMPARISON: 11/25/2023 portable AP chest 07/01/2022 CTA pulmonary embolus protocol chest FINDINGS: Cardiomegaly. Aortic calcification. No hilar or mediastinal enlargement. There is mild infiltrate or atelectasis at the left lung base. Slight right basilar atelectasis. The lungs otherwise appear clear. No pleural effusion or pulmonary vascular congestion or pneumothorax is evident. IMPRESSION: Left basilar infiltrate and/atelectasis and minimal right basilar atelectasis Reviewed, dictated and finalized at location A. IMPRESSION: Left basilar infiltrate and/atelectasis and minimal right basilar a telectasis
--- NOTE | ~2024-07-26 | XR_ITS ---
EXAMINATION: XR chest 1V portable DATE: 07/29/2024 13:03 INDICATION: Pneumonia TECHNIQUE: frontal view of the chest was obtained. COMPARISON: Chest radiograph dated 07/27/[address] dated 07/26/2024 FINDINGS: Likely artifactual relative increased lucency of the left lung and chest when compared with the right . New mild elevation of left hemidiaphragm. Mild left basilar opacities which could represent atelect asis or pneumonia. No pleural effusion or pneumothorax. Small hiatal hernia. IMPRESSION: 1. Mild elevation of the left hemidiaphragm with left basilar opacities which could represent associa amelia atelectasis and/or pneumonia. Reviewed, dictated and finalized at location B. IMPRESSION: 1. Mild elevation of the left hemidiaphragm with left basilar opacities which c ould represent associated atelectasis and/or pneumonia.
--- NOTE | ~2024-07-26 | CT_ITS ---
EXAMINATION: CTA chest PE protocol DATE: 07/26/2024 18:14 INDICATION: Chest pain, dyspnea TECHNIQUE: Computed tomography angiography (CTA) of the chest was performed with 100 mL Omnipaque-350 intravenous contrast timed to evaluate the pulmonary arteries. Coronal maximum intensity projection 3D-reconstructions were created by the technologist. Automated exposure control and iterative reconst ruction technique were employed. Exam dose: 542.94 mGy-cm total exam DLP. COMPARISON: 07/01/2022 CT pulmonary scan FINDINGS: There is diagnostic contrast enhancement of the pulmonary arteries and no evidence of pulmo nary embolism. 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 There is atherosclerotic calcification of the thoracic aorta and included suprarenal abdominal aorta, without evidence of aneurysm or dissection. No hilar or mediastinal mass lesion or lymphadenopathy. Cardiomegaly. No pericardial or pleural effusion. There are mild patchy infiltrates at the bases of the lingula and both lower lobes, left lower lobe g reater than right lower lobe, which may be due to mild atelectasis, pneumonia or aspiration pneumonit is. The lungs otherwise are clear. Small sliding hiatal hernia. Normal morphology of the adrenal glands. Included upper abdominal structures are unremarkable. No suspicious osteolytic or osteoblastic lesions. IMPRESSION: No evidence of pulmonary embolism Bibasilar lower lobe and lingular infiltrate or atelectasis Reviewed, dictated and finalized at Location A. Reviewed, dictated and finalized at location A.
--- NOTE | ~2024-07-26 | XR_ITS ---
XR chest 1V portable Ordering provider: Demetra Kaye APRN History: 84 years Male with . sob . Comparison: July 27, 2023 FINDINGS: MEDIASTINUM: The cardiac silhouette is slightly enlarged. LUNGS: No effusions or pneumothorax. Opacification the left lower lobe area. OTHER: No free air under the diaphragm. IMPRESSION: Left lower lobe atelectasis versus pneumonia. Reviewed, dictated and finalized at location A.
--- NOTE | ~2024-07-26 | CT_ITS ---
CT brain wo con Ordering provider: Nuno Melendez MD History: 84 years Male with . fall . Comparison: January 14, 2024 Technique: CT of the head without contrast. Radiation reduction technique utilized.The dose-length product was 605.33 mGy-cm. FINDINGS: BRAIN PARENCHYMA AND CSF SPACES: Mild leukoaraiosis and diffuse cortical atrophy. Mild atheromatous d isease. No midline shift, mass effect or hemorrhage. The brain parenchyma and CSF spaces are otherwi se normal. VISUALIZED PARANASAL SINUSES: Well aerated. MASTOIDS: Well aerated. BONES: The bones appear intact. SOFT TISSUES: Visualized nasopharynx is normal. Superficial soft tissues are normal. IMPRESSION: No acute intracranial findings. Reviewed, dictated and finalized at location A.
--- OUTSIDE RECORDS SUMMARY | 2024-07-26 13:50 | XMS_ITS | Clinical Summary ---
Author Organization [facility] Address [address] [place] [id number] Care Team Providers Care Chain Offbearer Name Role Phone Unavailable Primary Care Provider Unavailabl e Social History Tobacco Use Types Packs/Day Years Used Date Smoking Tobacco: Never Assessed Sex and Gender Information Value Date Recorded Sex Assigned at Not on file Legal Sex Male 7:30 PM CDT Gender Identity Not on file Sexual Orientation Not on file Plan of Treatment Health Maintenance Due Date Last Done Comments DTaP, Tdap and Td Vaccines ( 1 - Tdap) 1960 Zoster Vaccines (1 of 2) 1991 Pneumococcal Vaccine: 65+ Ye ars (1 of 1 - PCV) 2006 RSV Immunization or 60+ Years (1 - 1-dose 75+ series) 2016 COVID-19 Vaccine (2023-2 5 season) 2024 Influenza Adult (#1) 2024 Meningococcal B Vaccine Aged Out No l onger eligible based on patient's age to complete this topic Meningococcal Vaccine Aged Out No kasia gilma eligible based on patient's age to complete this topic RSV Immunizations Under 20 Months Aged Out No longer eligible based on patient's age to complete this topic
--- NOTE | 2024-07-26 13:56 | ECG_ITS ---
Test Date: 2024-07-26 14:04:49 Measurements Intervals [place] Rate: 123 P: 14 RI: 131 QRS: 7 QRSD: 80 T: 32 QT: 301 QTc: 431 Interpretive Statements SINUS TACHYCARDIA WITH OCCASIONAL SUPRAVENTRICULAR PREMATURE COMPLEXES LOW QRS VOLTAGE IN PRECORDIAL LEADS [QRS DEFLECTION < 1.0 mV IN CHEST LEADS] Incomplete right bundle-branch ABNORMAL RHYTHM ECG Compared to ECG 01/14/2024 14:22:38 Sinus rhythm no longer present Electronically Signed On 07-27-2024 16:32:46 CDT by Luigi Rodriguez M.D.
[2024-07-26 14:15] LABS: Basophils Absolute Auto 0.1 K/mm3 (0.0-0.1); Basophils Percent Auto 0.3 % (0.2-1.2); Eosinophils Absolute Auto 0.3 K/mm3 (0-0.3); Eosinophils Percent Auto 1.6 % (0-4.4); Hematocrit 44.2 % (42.0-52.0); Hemoglobin 14.2 g/dL (14.0-18.0); Immature Granulocyte Percent A 0.6 % (0-0.5); Lymphocytes Absolute Auto 1.93 K/mm3 (0.9-3.2); Mean Corpuscular HGB Conc 32.1 g/dl (32-36); Mean Corpuscular Hemoglobin 30.2 pg (26-34); Mean Platelet Volume 10.5 fl (7.4-10.4); Monocytes Absolute Auto 1.4 K/mm3 (0.1-0.6); Monocytes Percent Auto 8.1 % (2.6-8.5); Neutrophils Absolute Auto 13.8 K/mm3 (1.3-6.7); Neutrophils Percent Auto 78.4 % (45.5-73.1); Platelet Count Result 286 k/mm3 (150-375); Red Cell Distribution Width 12.6 % (11.5-14.5); White Blood Count 17.6 K/mm3 (4.5-10.0)
[2024-07-26 14:26] LABS: Alanine Aminotransferase 34 U/L (6-50); Albumin Level 4.3 g/dL (3.5-5.1); Alkaline Phosphatase 100 U/L (38-126); Anion Gap 10 mmol/L (4-12); Aspartate Amino Transferase 31 U/L (17-59); Bilirubin,Total 0.8 mg/dL (0.2-1.3); Blood Urea Nitrogen 24 mg/dL (9-20); Calcium 8.9 mg/dL (8.4-10.2); Carbon Dioxide 31 mmol/L (22-30); Chloride 96 mmol/L (98-107); Estimated CRCL calculation 35 ml/min; Estimated Glomerular Filt Rate 36; Glucose 175 mg/dL (65-110); Lipase 92 U/L (23-300); Potassium 4.7 mmol/L (3.4-5.0); Sodium 137 mmol/L (137-145)
[2024-07-26 14:29] LABS: Partial Thromboplastin Time 27.3 Seconds (22.3-36.8); Prothrombin Time 13.6 Seconds (11.1-14.7)
[2024-07-26 14:38] LABS: Troponin I < 0.012 ng/mL (0.000-0.034)
--- NOTE | 2024-07-26 17:19 | ECG_ITS ---
Test Date: 2024-07-26 17:20:51 Measurements Intervals [place] Rate: 107 P: 89 WA: 152 QRS: -9 QRSD: 84 T: 56 QT: 306 QTc: 409 Interpretive Statements SINUS TACHYCARDIA POSSIBLE LEFT ATRIAL ENLARGEMENT [-0.1mV P-WAVE IN V1/V2] LOW QRS VOLTAGE IN PRECORDIAL LEADS [QRS DEFLECTION < 1.0 mV IN CHEST LEADS] INCOMPLETE RIGHT BUNDLE BRANCH BLOCK NONSPECIFIC T-WAVE ABNORMALITY ABNORMAL RHYTHM ECG Compared to ECG 07/26/2024 14:04:49 T-wave abnormality now present Electronically Signed On 07-27-2024 16:36:18 CDT by Luigi Rodriguez M.D.
[2024-07-26] MEDS: ASPIRIN 81 MG CHEWABLE TABLET 324 MG PO (17:38)
[2024-07-26 17:50] LABS: Alveolar/Arterial O2 Gradient 45.2 mmHg; Base Excess ABG 0.1 mEq/l (+/-2.0); Device ROOM AIR; Fractional Inspired Oxygen 21 %; HCO3 ABG 23.3 mEq/l (22.0-26.0); Modified Allen's Test Pass; Oxygen Content ABG 18.7 %vol (16.0-22.0); Oxygen Saturation ABG 93.7 % (95.0-100.0); Oxyhemoglobin 91.2 % THb (90.0-100.0); PCO2 ABG 33.6 mmHg (35.0-45.0); PO2 ABG 64.3 mmHg (80.0-100.0); PO2 FiO2 Ratio Arterial Blood 3.06 %; Site Drawn RIGHT RADIAL; Total Hemoglobin 14.6 g/dL (12.0-18.0); pH ABG 7.458 (7.350-7.450)
--- OUTSIDE RECORDS SUMMARY | 2024-07-26 18:15 | XMS_ITS | Clinical Summary ---
Author Organization [facility] Address [address] [place] [id number] Care Team Providers Care Planer Mill Grader Name Role Phone Unavailable Primary Care Provider [...]
[2024-07-26 18:20] LABS: NT Pro B Type Natriuretic Pept 245 pg/mL (19.9-100)
[2024-07-26 18:24] LABS: Troponin I < 0.012 ng/mL (0.000-0.034)
[2024-07-26] MEDS: SODIUM CHLORIDE 0.9% IV 1,000 ML 999 ML IV CONT (18:35)
--- NOTE | 2024-07-26 18:57 | PC.NURSE ---
spoke with Bertha from [place] at this time to provide updates on the patient
--- NOTE | 2024-07-26 19:02 | ED.CHESTPAIN ---
HPI - Chest Pain General Chief Complaint: Chest Pain <Hillary Chandler PA-C - Last Filed: 07/26/24 19:24> Stated Complaint: chest pain, sob <Hillary Chandler PA-C - Last Filed: 07/26/24 19:24> Time Seen by Provider: 07/26/24 17:16 <Hillary Chandler PA-C - Last Filed: 07/26/24 19:24> History of Present Illness HPI narrative: 84-year-old male with history of GERD, CKD, COPD, type 2 diabetes secondary hyperparathyroidism, hyperlipidemia presents to the ED via EMS from [facility] with daughter at bedside for chest pain and shortness of breath. Patient states he developed chest pain and shortness of breath this morning at 7:00 a.m. while lying down. He states the pain is throughout the front of his chest and at times radiates to his left arm. He states the pain is intermittent and worse with exertion, however he has had several episodes at rest. He has no known history of CAD, no prior cardiac stent placement. He denies first-degree family history of cardiac disease or strokes. He denies cough or congestion, fevers. His daughter at bedside states that the patient has been very weak today and unable to care for himself or ambulate. Denies abdominal pain. No recent surgeries or hospitalizations. Denies history of VTE or hemoptysis, lower extremity edema. In route patient received 3 nitro, 324 mg of aspirin, 2 DuoNeb treatments and 1 albuterol EN route with reported improvement, however is endorsing chest pain on my evaluation. <Hillary Chandler PA-C - Last Filed: 07/26/24 19:24> Related Data Home Medications: Home Medications ?Medication ?Instructions ?Recorded ?Confirmed ?Last Taken ?Type ascorbic acid (vitamin C) 500 mg 500 mg PO DAILY 10/05/21 07/26/24 07/26/24 History capsule cholecalciferol (vitamin D3) 125 125 mcg PO DAILY 10/05/21 07/26/24 07/26/24 History mcg (5,000 unit) capsule zinc acetate 50 mg (zinc) capsule 50 mg PO DAILY 10/05/21 07/26/24 07/26/24 History latanoprost 0.005 % eye drops 1 drp EACH EYE HS 07/01/22 07/26/24 07/25/24 History <Hillary Chandler PA-C - Last Filed: 07/26/24 19:24> Allergies/Adverse Reactions: Allergies Allergy/AdvReac Type Severity Reaction Status Date / Time No Known Allergies Allergy Verified 07/26/24 13:57 <Hillary Chandler PA-C - Last Filed: 07/26/24 19:24> Review of Systems Review of Systems: All systems reviewed & are unremarkable except as noted in HPI and below <Hillary Chandler PA-C - Last Filed: 07/26/24 19:24> [facility] Past Medical History Medical History: Medical History BMI 31.0-31.9,adult Chronic kidney disease, stage 3 Chronic obstructive pulmonary disease Hyperlipidemia Type 2 diabetes mellitus Benign positional vertigo Chronic neck pain Restless legs syndrome Pulmonary asbestosis Exposure to asbestos Impaired glucose tolerance Benign prostatic hyperplasia with lower urinary tract symptoms Gastroesophageal reflux disease Polyarthritis <Hillary Chandler PA-C - Last Filed: 07/26/24 19:24> Surgical History Surgical History: Surgical History History of hernia repair <Hillary Chandler PA-C - Last Filed: 07/26/24 19:24> Family History Family History: Family History Mother Family history of malignant neoplasm Patient's mother is Father Family history of malignant neoplasm Patient's father is Sibling No problems noted. <Hillary Chandler PA-C - Last Filed: 07/26/24 19:24> Social History Social History: Social History Social History: The patient lives with significant other shannen. He has 3 children. He is retired from oil [employer] Surrogate medical decision maker: Krunal Leal, son. Code status: Full code. Smoking packs per day: 1 Smoking cigarettes per day: 20.0 Years smoked: 15 Smoking pack-years: 15.00 Smoking status: Former smoker Tobacco type: cigarettes Second hand tobacco smoke exposure: No Smoking end date: 05/06/86 Alcohol intake: former Drinks per week: 14 Substance use: never Substance use type: does not use Do You Feel Safe in your Home?: Yes Lack of Transportation: No Lack of Food: Never True Current Housing: I Have Housing Concerned About Future Housing: No Difficulty Paying Gas/Electric Bills: No Difficulty Paying for Meds: No Currently Unemployed: No Education: High School Diploma/GED Difficulty w/ Childcare or Family Care: No Living arrangements: with family Additional living arrangements comments: Lives in [place] with significant other. 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 Gender identity (if verbalized by the patient): Male Spiritual care concerns: No <Hillary Chandler PA-C - Last Filed: 07/26/24 19:24> Exam Narrative: GENERAL: Well-appearing, well-nourished, and in no acute distress. HEAD: Normocephalic, atraumatic. EYES: EOMI. ENT: Nares clear, no rhinorrhea or epistaxis. Mucous membranes moist. NECK: Supple. CHEST: Clear to auscultation. No respiratory distress. HEART: Regular rate and rhythm. No murmur heard. Normal peripheral pulses. ABDOMEN: Soft, nontender, nondistended, normal active bowel sounds. EXTREMITIES: Normal range of motion. No edema. SKIN: Changes consistent with chronic venous insufficiency to lower extremities NEURO: No focal deficits. Alert and oriented x3 <Hillary Chandler PA-C - Last Filed: 07/26/24 19:24> Course [employer] WORKER/PA Physician Supervision LAYLA notified me this patient being admitted for pneumonia. I was available for consultation while patient was in the ED but did not personally evaluate/assess them and was not directly involved in their care. <Alysia Cordova MD - Last Filed: 07/27/24 09:59> Vital Signs Vital signs: Vital Signs Temperature 98.2 F 07/26/24 13:59 Pulse Rate 128 H 07/26/24 13:59 Respiratory Rate 18 07/26/24 13:59 Blood Pressure 96/67 L 07/26/24 13:59 Pulse Oximetry 96 07/26/24 13:59 Temperature 97.7 F 07/27/24 05:21 Pulse Rate 92 07/27/24 08:00 Respiratory Rate 20 07/27/24 05:21 Blood Pressure 101/66 07/27/24 05:21 Pulse Oximetry 92 07/27/24 08:00 Oxygen Delivery Room Air 07/27/24 08:00 Fraction of Inspired Oxygen 21 07/27/24 01:32 <Hillary Chandler PA-C - Last Filed: 07/26/24 19:24> Vital Signs Temperature 98.2 F 07/26/24 13:59 Pulse Rate 128 H 07/26/24 13:59 Respiratory Rate 18 07/26/24 13:59 Blood Pressure 96/67 L 07/26/24 13:59 Pulse Oximetry 96 07/26/24 13:59 Temperature 97.7 F 07/27/24 05:21 Pulse Rate 92 07/27/24 08:00 Respiratory Rate 20 07/27/24 05:21 Blood Pressure 101/66 07/27/24 05:21 Pulse Oximetry 92 07/27/24 08:00 Oxygen Delivery Room Air 07/27/24 08:00 Fraction of Inspired Oxygen 21 07/27/24 01:32 <Alysia Cordova MD - Last Filed: 07/27/24 09:59> MDM - Chest Pain MDM Narrative Medical decision making narrative: 84-year-old male presents emergency department via EMS from assisted living facility for chest pain and shortness of breath that started today. See HPI for further history. Initial vital signs remarkable for tachycardia 128 and hypotension of 96/67. Patient is afebrile and satting 96% on room air in no respiratory distress. EKG shows sinus tachycardia with occasional supraventricular premature complexes, normal PA interval, normal QRS duration, normal QTC, no ST elevations or depressions, Q-waves in lead 3. Troponin and delta troponin are negative. CBC with leukocytosis of 17.6. Chemistries with baseline CKD. Lactic is elevated to 4. BNP within normal limits when age adjusted. A liters of fluids provided. CTA chest PE shows no PE, there is bibasilar lower lobe and lingular infiltrates. Patient and family updated on results. He was started on Rocephin and azithromycin for CAP. heart rate is improved to 105 bpm, O2 remains 97% on room air, patient is in no respiratory distress. BP has been soft, 99/69 now, but MAPs persistently >65. I discussed the case with hospitalist, Dr. Packer, who agrees to admission. <Hillary Chandler PA-C - Last Filed: 07/26/24 19:24> Lab Data Result diagrams: 07/27/24 05:37 07/27/24 05:37 <Hillary Chandler PA-C - Last Filed: 07/26/24 19:24> Labs: Lab Results 07/26/24 07/26/24 07/26/24 Range/Units 14:06 17:52 17:52 WBC 17.6 H (4.5-10.0) K/mm3 RBC 4.70 (4.6-6.20) M/mm3 Hgb 14.2 (14.0-18.0) g/dL Hct 44.2 (42.0-52.0) % MCV 94.0 (80-100) fl MCH 30.2 (26-34) pg MCHC 32.1 (32-36) g/dl RDW 12.6 (11.5-14.5) % Plt Count 286 (150-375) k/mm3 MPV 10.5 H (7.4-10.4) fl Immature Gran % (Auto) 0.6 H (0-0.5) % Neut % (Auto) 78.4 H (45.5-73.1) % Lymph % (Auto) 11.0 L (18.3-44.2) % Karnes % (Auto) 8.1 (2.6-8.5) % Eos % (Auto) 1.6 (0-4.4) % Baso % (Auto) 0.3 (0.2-1.2) % Lymph # (Auto) 1.93 (0.9-3.2) K/mm3 Karnes # (Auto) 1.4 H (0.1-0.6) K/mm3 Eos # (Auto) 0.3 (0-0.3) K/mm3 Baso # (Auto) 0.1 (0.0-0.1) K/mm3 Abs Immat Gran (auto) 0.10 H (0.00-0.031) K/mm3 Absolute Neuts (auto) 13.8 H (1.3-6.7) K/mm3 Absolute Nucleated RBC 0.000 (0.0-0.012) K/mm3 Nucleated RBC % 0.0 (0.0-0.2) % PT 13.6 (11.1-14.7) Seconds INR 1.0 APTT 27.3 (22.3-36.8) Seconds Sodium 137 (137-145) mmol/L Potassium 4.7 (3.4-5.0) mmol/L Chloride 96 L (98-107) mmol/L Carbon Dioxide 31 H (22-30) mmol/L Anion Gap 10 (4-12) mmol/L BUN 24 H (9-20) mg/dL Creatinine 1.81 H (0.7-1.3) mg/dL Estim Creat Clear Calc 35 ml/min Estimated GFR 36 L (59 - ) Glucose 175 H (65-110) mg/dL POC Capillary Glucose (65-105) mg/dl Lactic Acid 4.0 H (0.7-2.0) mmol/L Calcium 8.9 (8.4-10.2) mg/dL Magnesium Cancelled 2.0 Total Bilirubin 0.8 (0.2-1.3) mg/dL AST 31 (17-59) U/L ALT 34 (6-50) U/L Alkaline Phosphatase 100 (38-126) U/L Troponin I < 0.012 (0.000-0.034) ng/mL NT-Pro-B Natriuret Pep Total Protein 9.0 H (6.3-8.2) g/dL Albumin 4.3 (3.5-5.1) g/dL Lipase 92 (23-300) U/L Urine Color (Yellow) Urine Appearance (Clear) Urine pH (5.0-9.0) Ur Specific [place] (1.001-1.035) Urine Protein (Negative) mg/dL Urine Glucose (UA) (Negative) mg/dL Urine Ketones (Negative) mg/dL Ur Blood (Man) (Negative) Urine Nitrate (Negative) Urine Bilirubin (Negative) Urine Urobilinogen (<2.0) mg/dL Add Ur Microanalysis Leukocyte Esterase Rfl (Negative) RAINER/UL Urine RBC (0-2) /hpf Urine WBC (0-3) /hpf Ur Squamous Epith Cells (Few) /hpf Urine Bacteria /hpf Urine Casts Nasal MRSA (PCR) (NOT DETECTE) Influenza A (RT-PCR) (Negative) Influenza B (RT-PCR) (Negative) RSV (RT-PCR) (Negative) SARS-CoV-2 RNA (RT-PCR) (Negative) 07/26/24 07/26/24 07/26/24 Range/Units 17:52 17:52 19:13 WBC (4.5-10.0) K/mm3 RBC (4.6-6.20) M/mm3 Hgb (14.0-18.0) g/dL Hct (42.0-52.0) % MCV (80-100) fl MCH (26-34) pg MCHC (32-36) g/dl RDW (11.5-14.5) % Plt Count (150-375) k/mm3 MPV (7.4-10.4) fl Immature Gran % (Auto) (0-0.5) % Neut % (Auto) (45.5-73.1) % Lymph % (Auto) (18.3-44.2) % Karnes % (Auto) (2.6-8.5) % Eos % (Auto) (0-4.4) % Baso % (Auto) (0.2-1.2) % Lymph # (Auto) (0.9-3.2) K/mm3 Karnes # (Auto) (0.1-0.6) K/mm3 Eos # (Auto) (0-0.3) K/mm3 Baso # (Auto) (0.0-0.1) K/mm3 Abs Immat Gran (auto) (0.00-0.031) K/mm3 Absolute Neuts (auto) (1.3-6.7) K/mm3 Absolute Nucleated RBC (0.0-0.012) K/mm3 Nucleated RBC % (0.0-0.2) % PT (11.1-14.7) Seconds INR APTT (22.3-36.8) Seconds Sodium (137-145) mmol/L Potassium (3.4-5.0) mmol/L Chloride (98-107) mmol/L Carbon Dioxide (22-30) mmol/L Anion Gap (4-12) mmol/L BUN (9-20) mg/dL Creatinine (0.7-1.3) mg/dL Estim Creat Clear Calc ml/min Estimated GFR (59 - ) Glucose (65-110) mg/dL POC Capillary Glucose (65-105) mg/dl Lactic Acid (0.7-2.0) mmol/L Calcium (8.4-10.2) mg/dL Magnesium Cancelled Total Bilirubin (0.2-1.3) mg/dL AST (17-59) U/L ALT (6-50) U/L Alkaline Phosphatase (38-126) U/L Troponin I < 0.012 (0.000-0.034) ng/mL NT-Pro-B Natriuret Pep Cancelled 245 H Total Protein (6.3-8.2) g/dL Albumin (3.5-5.1) g/dL Lipase (23-300) U/L Urine Color Yellow (Yellow) Urine Appearance Clear (Clear) Urine pH 5.5 (5.0-9.0) Ur Specific [place] 1.020 (1.001-1.035) Urine Protein Negative (Negative) mg/dL Urine Glucose (UA) Negative (Negative) mg/dL Urine Ketones Negative (Negative) mg/dL Ur Blood (Man) Negative (Negative) Urine Nitrate Negative (Negative) Urine Bilirubin Negative (Negative) Urine Urobilinogen 0.2 (<2.0) mg/dL Add Ur Microanalysis Reviewed Leukocyte Esterase Rfl 1+ H (Negative) RAINRE/UL Urine RBC 0-2 (0-2) /hpf Urine WBC 0-5 (0-3) /hpf Ur Squamous Epith Cells None seen (Few) /hpf Urine Bacteria None seen /hpf Urine Casts 0-2 Nasal MRSA (PCR) (NOT DETECTE) Influenza A (RT-PCR) (Negative) Influenza B (RT-PCR) (Negative) RSV (RT-PCR) (Negative) SARS-CoV-2 RNA (RT-PCR) (Negative) 07/26/24 07/26/24 07/26/24 Range/Units 19:42 20:15 22:19 WBC (4.5-10.0) K/mm3 RBC (4.6-6.20) M/mm3 Hgb (14.0-18.0) g/dL Hct (42.0-52.0) % MCV (80-100) fl MCH (26-34) pg MCHC (32-36) g/dl RDW (11.5-14.5) % Plt Count (150-375) k/mm3 MPV (7.4-10.4) fl Immature Gran % (Auto) (0-0.5) % Neut % (Auto) (45.5-73.1) % Lymph % (Auto) (18.3-44.2) % Karnes % (Auto) (2.6-8.5) % Eos % (Auto) (0-4.4) % Baso % (Auto) (0.2-1.2) % Lymph # (Auto) (0.9-3.2) K/mm3 Karnes # (Auto) (0.1-0.6) K/mm3 Eos # (Auto) (0-0.3) K/mm3 Baso # (Auto) (0.0-0.1) K/mm3 Abs Immat Gran (auto) (0.00-0.031) K/mm3 Absolute Neuts (auto) (1.3-6.7) K/mm3 Absolute Nucleated RBC (0.0-0.012) K/mm3 Nucleated RBC % (0.0-0.2) % PT (11.1-14.7) Seconds INR APTT (22.3-36.8) Seconds Sodium (137-145) mmol/L Potassium (3.4-5.0) mmol/L Chloride (98-107) mmol/L Carbon Dioxide (22-30) mmol/L Anion Gap (4-12) mmol/L BUN (9-20) mg/dL Creatinine (0.7-1.3) mg/dL Estim Creat Clear Calc ml/min Estimated GFR (59 - ) Glucose (65-110) mg/dL POC Capillary Glucose 207 H (65-105) mg/dl Lactic Acid 2.1 H (0.7-2.0) mmol/L Calcium (8.4-10.2) mg/dL Magnesium Total Bilirubin (0.2-1.3) mg/dL AST (17-59) U/L ALT (6-50) U/L Alkaline Phosphatase (38-126) U/L Troponin I < 0.012 (0.000-0.034) ng/mL NT-Pro-B Natriuret Pep Total Protein (6.3-8.2) g/dL Albumin (3.5-5.1) g/dL Lipase (23-300) U/L Urine Color (Yellow) Urine Appearance (Clear) Urine pH (5.0-9.0) Ur Specific [place] (1.001-1.035) Urine Protein (Negative) mg/dL Urine Glucose (UA) (Negative) mg/dL Urine Ketones (Negative) mg/dL Ur Blood (Man) (Negative) Urine Nitrate (Negative) Urine Bilirubin (Negative) Urine Urobilinogen (<2.0) mg/dL Add Ur Microanalysis Leukocyte Esterase Rfl (Negative) RAINER/UL Urine RBC (0-2) /hpf Urine WBC (0-3) /hpf Ur Squamous Epith Cells (Few) /hpf Urine Bacteria /hpf Urine Casts Nasal MRSA (PCR) (NOT DETECTE) Influenza A (RT-PCR) Negative (Negative) Influenza B (RT-PCR) Negative (Negative) RSV (RT-PCR) Negative (Negative) SARS-CoV-2 RNA (RT-PCR) Negative (Negative) 07/26/24 07/27/24 07/27/24 Range/Units 23:29 05:37 05:38 WBC 14.8 H (4.5-10.0) K/mm3 RBC 3.89 L (4.6-6.20) M/mm3 Hgb 11.9 L (14.0-18.0) g/dL Hct 37.5 L (42.0-52.0) % MCV 96.4 (80-100) fl MCH 30.6 (26-34) pg MCHC 31.7 L (32-36) g/dl RDW 12.8 (11.5-14.5) % Plt Count 222 (150-375) k/mm3 MPV 10.6 H (7.4-10.4) fl Immature Gran % (Auto) 0.8 H (0-0.5) % Neut % (Auto) 70.3 (45.5-73.1) % Lymph % (Auto) 15.8 L (18.3-44.2) % Karnes % (Auto) 11.9 H (2.6-8.5) % Eos % (Auto) 0.9 (0-4.4) % Baso % (Auto) 0.3 (0.2-1.2) % Lymph # (Auto) 2.33 (0.9-3.2) K/mm3 Karnes # (Auto) 1.8 H (0.1-0.6) K/mm3 Eos # (Auto) 0.1 (0-0.3) K/mm3 Baso # (Auto) 0.0 (0.0-0.1) K/mm3 Abs Immat Gran (auto) 0.12 H (0.00-0.031) K/mm3 Absolute Neuts (auto) 10.4 H (1.3-6.7) K/mm3 Absolute Nucleated RBC 0.000 (0.0-0.012) K/mm3 Nucleated RBC % 0.0 (0.0-0.2) % PT (11.1-14.7) Seconds INR APTT (22.3-36.8) Seconds Sodium 139 (137-145) mmol/L Potassium 4.2 (3.4-5.0) mmol/L Chloride 100 (98-107) mmol/L Carbon Dioxide 33 H (22-30) mmol/L Anion Gap 6 (4-12) mmol/L BUN 26 H (9-20) mg/dL Creatinine 2.00 H (0.7-1.3) mg/dL Estim Creat Clear Calc 28 ml/min Estimated GFR 32 L (59 - ) Glucose 102 (65-110) mg/dL POC Capillary Glucose (65-105) mg/dl Lactic Acid 1.3 (0.7-2.0) mmol/L Calcium 8.3 L (8.4-10.2) mg/dL Magnesium 2.0 Total Bilirubin 0.8 (0.2-1.3) mg/dL AST 18 (17-59) U/L ALT 24 (6-50) U/L Alkaline Phosphatase 81 (38-126) U/L Troponin I (0.000-0.034) ng/mL NT-Pro-B Natriuret Pep Total Protein 7.0 (6.3-8.2) g/dL Albumin 3.4 L (3.5-5.1) g/dL Lipase (23-300) U/L Urine Color (Yellow) Urine Appearance (Clear) Urine pH (5.0-9.0) Ur Specific [place] (1.001-1.035) Urine Protein (Negative) mg/dL Urine Glucose (UA) (Negative) mg/dL Urine Ketones (Negative) mg/dL Ur Blood (Man) (Negative) Urine Nitrate (Negative) Urine Bilirubin (Negative) Urine Urobilinogen (<2.0) mg/dL Add Ur Microanalysis Leukocyte Esterase Rfl (Negative) RAINER/UL Urine RBC (0-2) /hpf Urine WBC (0-3) /hpf Ur Squamous Epith Cells (Few) /hpf Urine Bacteria /hpf Urine Casts Nasal MRSA (PCR) Not detected (NOT DETECTE) Influenza A (RT-PCR) (Negative) Influenza B (RT-PCR) (Negative) RSV (RT-PCR) (Negative) SARS-CoV-2 RNA (RT-PCR) (Negative) <Hillary Chandler PA-C - Last Filed: 07/26/24 19:24> Lab Results 07/26/24 07/26/24 07/26/24 Range/Units 14:06 17:52 17:52 WBC 17.6 H (4.5-10.0) K/mm3 RBC 4.70 (4.6-6.20) M/mm3 Hgb 14.2 (14.0-18.0) g/dL Hct 44.2 (42.0-52.0) % MCV 94.0 (80-100) fl MCH 30.2 (26-34) pg MCHC 32.1 (32-36) g/dl RDW 12.6 (11.5-14.5) % Plt Count 286 (150-375) k/mm3 MPV 10.5 H (7.4-10.4) fl Immature Gran % (Auto) 0.6 H (0-0.5) % Neut % (Auto) 78.4 H (45.5-73.1) % Lymph % (Auto) 11.0 L (18.3-44.2) % Karnes % (Auto) 8.1 (2.6-8.5) % Eos % (Auto) 1.6 (0-4.4) % Baso % (Auto) 0.3 (0.2-1.2) % Lymph # (Auto) 1.93 (0.9-3.2) K/mm3 Karnes # (Auto) 1.4 H (0.1-0.6) K/mm3 Eos # (Auto) 0.3 (0-0.3) K/mm3 Baso # (Auto) 0.1 (0.0-0.1) K/mm3 Abs Immat Gran (auto) 0.10 H (0.00-0.031) K/mm3 Absolute Neuts (auto) 13.8 H (1.3-6.7) K/mm3 Absolute Nucleated RBC 0.000 (0.0-0.012) K/mm3 Nucleated RBC % 0.0 (0.0-0.2) % PT 13.6 (11.1-14.7) Seconds INR 1.0 APTT 27.3 (22.3-36.8) Seconds Sodium 137 (137-145) mmol/L Potassium 4.7 (3.4-5.0) mmol/L Chloride 96 L (98-107) mmol/L Carbon Dioxide 31 H (22-30) mmol/L Anion Gap 10 (4-12) mmol/L BUN 24 H (9-20) mg/dL Creatinine 1.81 H (0.7-1.3) mg/dL Estim Creat Clear Calc 35 ml/min Estimated GFR 36 L (59 - ) Glucose 175 H (65-110) mg/dL POC Capillary Glucose (65-105) mg/dl Lactic Acid 4.0 H (0.7-2.0) mmol/L Calcium 8.9 (8.4-10.2) mg/dL Magnesium Cancelled 2.0 Total Bilirubin 0.8 (0.2-1.3) mg/dL AST 31 (17-59) U/L ALT 34 (6-50) U/L Alkaline Phosphatase 100 (38-126) U/L Troponin I < 0.012 (0.000-0.034) ng/mL NT-Pro-B Natriuret Pep Total Protein 9.0 H (6.3-8.2) g/dL Albumin 4.3 (3.5-5.1) g/dL Lipase 92 (23-300) U/L Urine Color (Yellow) Urine Appearance (Clear) Urine pH (5.0-9.0) Ur Specific [place] (1.001-1.035) Urine Protein (Negative) mg/dL Urine Glucose (UA) (Negative) mg/dL Urine Ketones (Negative) mg/dL Ur Blood (Man) (Negative) Urine Nitrate (Negative) Urine Bilirubin (Negative) Urine Urobilinogen (<2.0) mg/dL Add Ur Microanalysis Leukocyte Esterase Rfl (Negative) RAINER/UL Urine RBC (0-2) /hpf Urine WBC (0-3) /hpf Ur Squamous Epith Cells (Few) /hpf Urine Bacteria /hpf Urine Casts Nasal MRSA (PCR) (NOT DETECTE) Influenza A (RT-PCR) (Negative) Influenza B (RT-PCR) (Negative) RSV (RT-PCR) (Negative) SARS-CoV-2 RNA (RT-PCR) (Negative) 07/26/24 07/26/24 07/26/24 Range/Units 17:52 17:52 19:13 WBC (4.5-10.0) K/mm3 RBC (4.6-6.20) M/mm3 Hgb (14.0-18.0) g/dL Hct (42.0-52.0) % MCV (80-100) fl MCH (26-34) pg MCHC (32-36) g/dl RDW (11.5-14.5) % Plt Count (150-375) k/mm3 MPV (7.4-10.4) fl Immature Gran % (Auto) (0-0.5) % Neut % (Auto) (45.5-73.1) % Lymph % (Auto) (18.3-44.2) % Karnes % (Auto) (2.6-8.5) % Eos % (Auto) (0-4.4) % Baso % (Auto) (0.2-1.2) % Lymph # (Auto) (0.9-3.2) K/mm3 [place] # (Auto) (0.1-0.6) K/mm3 Eos # (Auto) (0-0.3) K/mm3 Baso # (Auto) (0.0-0.1) K/mm3 Abs Immat Gran (auto) (0.00-0.031) K/mm3 Absolute Neuts (auto) (1.3-6.7) K/mm3 Absolute Nucleated RBC (0.0-0.012) K/mm3 Nucleated RBC % (0.0-0.2) % PT (11.1-14.7) Seconds INR APTT (22.3-36.8) Seconds Sodium (137-145) mmol/L Potassium (3.4-5.0) mmol/L Chloride (98-107) mmol/L Carbon Dioxide (22-30) mmol/L Anion Gap (4-12) mmol/L BUN (9-20) mg/dL Creatinine (0.7-1.3) mg/dL Estim Creat Clear Calc ml/min Estimated GFR (59 - ) Glucose (65-110) mg/dL POC Capillary Glucose (65-105) mg/dl Lactic Acid (0.7-2.0) mmol/L Calcium (8.4-10.2) mg/dL Magnesium Cancelled Total Bilirubin (0.2-1.3) mg/dL AST (17-59) U/L ALT (6-50) U/L Alkaline Phosphatase (38-126) U/L Troponin I < 0.012 (0.000-0.034) ng/mL NT-Pro-B Natriuret Pep Cancelled 245 H Total Protein (6.3-8.2) g/dL Albumin (3.5-5.1) g/dL Lipase (23-300) U/L Urine Color Yellow (Yellow) Urine Appearance Clear (Clear) Urine pH 5.5 (5.0-9.0) Ur Specific [place] 1.020 (1.001-1.035) Urine Protein Negative (Negative) mg/dL Urine Glucose (UA) Negative (Negative) mg/dL Urine Ketones Negative (Negative) mg/dL Ur Blood (Man) Negative (Negative) Urine Nitrate Negative (Negative) Urine Bilirubin Negative (Negative) Urine Urobilinogen 0.2 (<2.0) mg/dL Add Ur Microanalysis Reviewed Leukocyte Esterase Rfl 1+ H (Negative) RAINER/UL Urine RBC 0-2 (0-2) /hpf Urine WBC 0-5 (0-3) /hpf Ur Squamous Epith Cells None seen (Few) /hpf Urine Bacteria None seen /hpf Urine Casts 0-2 Nasal MRSA (PCR) (NOT DETECTE) Influenza A (RT-PCR) (Negative) Influenza B (RT-PCR) (Negative) RSV (RT-PCR) (Negative) SARS-CoV-2 RNA (RT-PCR) (Negative) 07/26/24 07/26/24 07/26/24 Range/Units 19:42 20:15 22:19 WBC (4.5-10.0) K/mm3 RBC (4.6-6.20) M/mm3 Hgb (14.0-18.0) g/dL Hct (42.0-52.0) % MCV (80-100) fl MCH (26-34) pg MCHC (32-36) g/dl RDW (11.5-14.5) % Plt Count (150-375) k/mm3 MPV (7.4-10.4) fl Immature Gran % (Auto) (0-0.5) % Neut % (Auto) (45.5-73.1) % Lymph % (Auto) (18.3-44.2) % [place] % (Auto) (2.6-8.5) % Eos % (Auto) (0-4.4) % Baso % (Auto) (0.2-1.2) % Lymph # (Auto) (0.9-3.2) K/mm3 [place] # (Auto) (0.1-0.6) K/mm3 Eos # (Auto) (0-0.3) K/mm3 Baso # (Auto) (0.0-0.1) K/mm3 Abs Immat Gran (auto) (0.00-0.031) K/mm3 Absolute Neuts (auto) (1.3-6.7) K/mm3 Absolute Nucleated RBC (0.0-0.012) K/mm3 Nucleated RBC % (0.0-0.2) % PT (11.1-14.7) Seconds INR APTT (22.3-36.8) Seconds Sodium (137-145) mmol/L Potassium (3.4-5.0) mmol/L Chloride (98-107) mmol/L Carbon Dioxide (22-30) mmol/L Anion Gap (4-12) mmol/L BUN (9-20) mg/dL Creatinine (0.7-1.3) mg/dL Estim Creat Clear Calc ml/min Estimated GFR (59 - ) Glucose (65-110) mg/dL POC Capillary Glucose 207 H (65-105) mg/dl Lactic Acid 2.1 H (0.7-2.0) mmol/L Calcium (8.4-10.2) mg/dL Magnesium Total Bilirubin (0.2-1.3) mg/dL AST (17-59) U/L ALT (6-50) U/L Alkaline Phosphatase (38-126) U/L Troponin I < 0.012 (0.000-0.034) ng/mL NT-Pro-B Natriuret Pep Total Protein (6.3-8.2) g/dL Albumin (3.5-5.1) g/dL Lipase (23-300) U/L Urine Color (Yellow) Urine Appearance (Clear) Urine pH (5.0-9.0) Ur Specific [place] (1.001-1.035) Urine Protein (Negative) mg/dL Urine Glucose (UA) (Negative) mg/dL Urine Ketones (Negative) mg/dL Ur Blood (Man) (Negative) Urine Nitrate (Negative) Urine Bilirubin (Negative) Urine Urobilinogen (<2.0) mg/dL Add Ur Microanalysis Leukocyte Esterase Rfl (Negative) RAINER/UL Urine RBC (0-2) /hpf Urine WBC (0-3) /hpf Ur Squamous Epith Cells (Few) /hpf Urine Bacteria /hpf Urine Casts Nasal MRSA (PCR) (NOT DETECTE) Influenza A (RT-PCR) Negative (Negative) Influenza B (RT-PCR) Negative (Negative) RSV (RT-PCR) Negative (Negative) SARS-CoV-2 RNA (RT-PCR) Negative (Negative) 07/26/24 07/27/24 07/27/24 Range/Units 23:29 05:37 05:38 WBC 14.8 H (4.5-10.0) K/mm3 RBC 3.89 L (4.6-6.20) M/mm3 Hgb 11.9 L (14.0-18.0) g/dL Hct 37.5 L (42.0-52.0) % MCV 96.4 (80-100) fl MCH 30.6 (26-34) pg MCHC 31.7 L (32-36) g/dl RDW 12.8 (11.5-14.5) % Plt Count 222 (150-375) k/mm3 MPV 10.6 H (7.4-10.4) fl Immature Gran % (Auto) 0.8 H (0-0.5) % Neut % (Auto) 70.3 (45.5-73.1) % Lymph % (Auto) 15.8 L (18.3-44.2) % [place] % (Auto) 11.9 H (2.6-8.5) % Eos % (Auto) 0.9 (0-4.4) % Baso % (Auto) 0.3 (0.2-1.2) % Lymph # (Auto) 2.33 (0.9-3.2) K/mm3 [place] # (Auto) 1.8 H (0.1-0.6) K/mm3 Eos # (Auto) 0.1 (0-0.3) K/mm3 Baso # (Auto) 0.0 (0.0-0.1) K/mm3 Abs Immat Gran (auto) 0.12 H (0.00-0.031) K/mm3 Absolute Neuts (auto) 10.4 H (1.3-6.7) K/mm3 Absolute Nucleated RBC 0.000 (0.0-0.012) K/mm3 Nucleated RBC % 0.0 (0.0-0.2) % PT (11.1-14.7) Seconds INR APTT (22.3-36.8) Seconds Sodium 139 (137-145) mmol/L Potassium 4.2 (3.4-5.0) mmol/L Chloride 100 (98-107) mmol/L Carbon Dioxide 33 H (22-30) mmol/L Anion Gap 6 (4-12) mmol/L BUN 26 H (9-20) mg/dL Creatinine 2.00 H (0.7-1.3) mg/dL Estim Creat Clear Calc 28 ml/min Estimated GFR 32 L (59 - ) Glucose 102 (65-110) mg/dL POC Capillary Glucose (65-105) mg/dl Lactic Acid 1.3 (0.7-2.0) mmol/L Calcium 8.3 L (8.4-10.2) mg/dL Magnesium 2.0 Total Bilirubin 0.8 (0.2-1.3) mg/dL AST 18 (17-59) U/L ALT 24 (6-50) U/L Alkaline Phosphatase 81 (38-126) U/L Troponin I (0.000-0.034) ng/mL NT-Pro-B Natriuret Pep Total Protein 7.0 (6.3-8.2) g/dL Albumin 3.4 L (3.5-5.1) g/dL Lipase (23-300) U/L Urine Color (Yellow) Urine Appearance (Clear) Urine pH (5.0-9.0) Ur Specific [place] (1.001-1.035) Urine Protein (Negative) mg/dL Urine Glucose (UA) (Negative) mg/dL Urine Ketones (Negative) mg/dL Ur Blood (Man) (Negative) Urine Nitrate (Negative) Urine Bilirubin (Negative) Urine Urobilinogen (<2.0) mg/dL Add Ur Microanalysis Leukocyte Esterase Rfl (Negative) RAINER/UL Urine RBC (0-2) /hpf Urine WBC (0-3) /hpf Ur Squamous Epith Cells (Few) /hpf Urine Bacteria /hpf Urine Casts Nasal MRSA (PCR) Not detected (NOT DETECTE) Influenza A (RT-PCR) (Negative) Influenza B (RT-PCR) (Negative) RSV (RT-PCR) (Negative) SARS-CoV-2 RNA (RT-PCR) (Negative) <Alysia Cordova MD - Last Filed: 07/27/24 09:59> ABG Data ABG results: 07/26/24 17:42 Puncture Site Right radial ABG pH 7.458 H ABG pCO2 33.6 L ABG pO2 64.3 L ABG PO2/FiO2 Ratio 3.06 ABG HCO3 23.3 ABG O2 Saturation 93.7 L ABG O2 Content 18.7 ABG Base Excess 0.1 A-a Gradient 45.2 Oxyhemoglobin 91.2 Total Hemoglobin 14.6 O2 Delivery Device Room air O2 Liters/Min Not Reportable FiO2 21 <Hillary Chandler PA-C - Last Filed: 07/26/24 19:24> 07/26/24 17:42 Puncture Site Right radial ABG pH 7.458 H ABG pCO2 33.6 L ABG pO2 64.3 L ABG PO2/FiO2 Ratio 3.06 ABG HCO3 23.3 ABG O2 Saturation 93.7 L ABG O2 Content 18.7 ABG Base Excess 0.1 A-a Gradient 45.2 Oxyhemoglobin 91.2 Total Hemoglobin 14.6 O2 Delivery Device Room air O2 Liters/Min Not Reportable FiO2 21 <Alysia Cordova MD - Last Filed: 07/27/24 09:59> Discharge Plan Discharge Clinical Impression: CAP (community acquired pneumonia) Qualifiers: Laterality: left Lung location: lower lobe of lung Qualified Code(s): J18.9 - Pneumonia, unspecified organism Chest pain Qualifiers: Chest pain type: unspecified Qualified Code(s): R07.9 - Chest pain, unspecified <Hillary Chandler PA-C - Last Filed: 07/26/24 19:24> Patient Disposition: Still a Patient <Hillary Chandler PA-C - Last Filed: 07/26/24 19:24> Condition: Stable <Hillary Chandler PA-C - Last Filed: 07/26/24 19:24>
[2024-07-26 19:31] LABS: Add Urine Microscopic? YES; Appearance Urine Clear (Clear); Bacteria Urine None Seen /hpf; Bilirubin Urine Negative (Negative); Blood Urine Negative (Negative); Color Urine Yellow (Yellow); Glucose Urine UA Negative (Negative); Ketones Urine Negative (Negative); Leukocyte Esterase Ur 1+ LEU/UL (Negative); Need Manual Microscopic Reviewed; Nitrate Urine Negative (Negative); Non Pathogenic Casts 0-2; Protein Urine Negative (Negative); RBC Urine 0-2 /hpf (0-2); Squamous Epithelial Cell Urine None Seen /hpf (Few); Urobilinogen Urine 0.2 mg/dL (<2.0); WBC Urine 0-5 /hpf (0-3); pH Urine 5.5 (5.0-9.0)
--- NOTE | 2024-07-26 19:43 | PC.NURSE ---
unsuccessful x2 in obtaining blood cultures. MARISOL Bridges and SANJAY aware.
--- NOTE | 2024-07-26 19:50 | P.HP_ITS ---
H&P: HPI History of Present Illness Date/Time: 07/26/24 19:50 Chief Complaint: Chest pain and SOB Narrative: 84-year-old male past medical history of CKD stage 3, COPD, GERD, hyperlipidemia, type 2 diabetes, restless leg syndrome and pulmonary asbestosis presented to ED on account of chest pain and shortness of breath. Patient placed on having shortness of breath and chest pain and a prior to presentation, described chest pain as a sharp and with a point tenderness. Denies any fever no coughing no vomiting abdominal pain no diarrhea no dysuria no focal symptoms. ER evaluation notable for tachycardia with a heart rate 109, tachypnea respiratory 24, blood pressure 111/81, saturation 98% on room air. Labs notable for WBC 17.6, ABG 7.458/33.6/64.3/23.3, lactic acid is 4.0, troponin negative. Flu COVID RSV pending. CT chest showed bilateral infiltrates. EKG showed sinus tachycardia. Review of Systems Review of Systems: Other systems reviewed and negative except as noted in history above. [facility] Past Medical History Medical History BMI 31.0-31.9,adult Chronic kidney disease, stage 3 Chronic obstructive pulmonary disease Hyperlipidemia Type 2 diabetes mellitus Benign positional vertigo Chronic neck pain Restless legs syndrome Pulmonary asbestosis Exposure to asbestos Impaired glucose tolerance Benign prostatic hyperplasia with lower urinary tract symptoms Gastroesophageal reflux disease Polyarthritis Surgical History Surgical History History of hernia repair Family History Family History Mother Family history of malignant neoplasm Patient's mother is Father Family history of malignant neoplasm Patient's father is Sibling No problems noted. Social History Social History Social History: The patient lives with significant other shannen. He has 3 children. He is retired from [employer] Surrogate medical decision maker: Krunal Leal, son. Code status: Full code. Smoking packs per day: 1 Smoking cigarettes per day: 20.0 Years smoked: 15 Smoking pack-years: 15.00 Smoking status: Former smoker Tobacco type: cigarettes Second hand tobacco smoke exposure: Yes Smoking end date: 05/06/86 Alcohol intake: current Drinks per week: 14 Substance use: never Substance use type: does not use Do You Feel Safe in your Home?: Yes Lack of Transportation: No Lack of Food: Never True Current Housing: I Have Housing Concerned About Future Housing: No Difficulty Paying Gas/Electric Bills: No Difficulty Paying for Meds: No Currently Unemployed: No Education: High School Diploma/GED Difficulty w/ Childcare or Family Care: No Living arrangements: with family Additional living arrangements comments: Lives in [place] with significant other. 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 Gender identity (if verbalized by the patient): Male Spiritual care concerns: No Meds Home Medications and Allergies Home Medications ?Medication ?Instructions ?Recorded ?Confirmed ?Type ascorbic acid (vitamin C) 500 mg 500 mg PO DAILY 10/05/21 06/07/24 History capsule cholecalciferol (vitamin D3) 125 125 mcg PO DAILY 10/05/21 06/07/24 History mcg (5,000 unit) capsule zinc acetate 50 mg (zinc) capsule 50 mg PO DAILY 10/05/21 06/07/24 History latanoprost 0.005 % eye drops 1 drp EACH EYE HS 07/01/22 06/07/24 History benzonatate 200 mg capsule 200 mg PO TID PRN cough #30 caps 03/25/23 06/07/24 Rx gabapentin 100 mg capsule 200 mg (2 x 100 mg) PO BID #120 12/31/23 06/07/24 Rx caps furosemide 80 mg tablet See Rx Instructions .Route 02/14/24 06/07/24 Rx .COMPLEX #90 tabs potassium chloride 20 mEq 20 meq PO DAILY #90 tabs 02/14/24 06/07/24 Rx tablet,extended release tamsulosin 0.4 mg capsule 0.4 mg PO DAILY #90 caps 02/14/24 06/07/24 Rx famotidine 20 mg tablet 20 mg PO DAILY #90 tabs 02/27/24 06/07/24 Rx diclofenac sodium 1 % topical gel 2 g topical QID #100 grams 03/05/24 06/07/24 Rx triamcinolone acetonide 0.1 % See Rx Instructions .Route 03/24/24 06/07/24 Rx topical cream .COMPLEX #80 grams albuterol sulfate 90 mcg/actuation 2 inh inhalation QID PRN shortness 04/07/24 06/07/24 Rx aerosol inhaler of breath or wheezing #8.5 grams meclizine 25 mg tablet See Rx Instructions .Route 04/07/24 06/07/24 Rx .COMPLEX #90 tabs cyclobenzaprine 5 mg tablet See Rx Instructions .Route 04/15/24 06/07/24 Rx .COMPLEX #30 tabs glipizide 5 mg tablet 5 mg PO DAILY #90 tabs 04/15/24 06/07/24 Rx tiotropium bromide 2.5 2 puff inhalation DAILY #4 grams 04/15/24 06/07/24 Rx mcg/actuation mist for inhalation (Spiriva Respimat) ropinirole 0.5 mg tablet See Rx Instructions .Route 05/08/24 06/07/24 Rx .COMPLEX #90 tabs pantoprazole 40 mg tablet,delayed 40 mg PO BID #180 tabs 07/23/24 Rx release Allergies Allergy/AdvReac Type Severity Reaction Status Date / Time No Known Allergies Allergy Verified 07/26/24 13:57 Vital Signs Vital Signs - 24 hr 07/26/24 13:59 07/26/24 15:58 07/26/24 17:22 Temperature 98.2 F Pulse Rate 128 H 104 H 106 H Respiratory Rate 18 19 18 Blood Pressure 96/67 L 120/76 Pulse Oximetry 96 93 90 Oxygen Delivery 07/26/24 17:23 07/26/24 17:30 07/26/24 17:31 Temperature Pulse Rate 107 H 107 H 106 H Respiratory Rate 24 H 25 H 23 H Blood Pressure 127/105 H 99/79 L Pulse Oximetry 77 L 87 L Oxygen Delivery 07/26/24 17:34 07/26/24 17:39 07/26/24 17:41 Temperature Pulse Rate 108 H 107 H Respiratory Rate 22 H 19 Blood Pressure 101/63 101/63 Pulse Oximetry 97 99 98 Oxygen Delivery Room Air 07/26/24 17:45 07/26/24 17:46 07/26/24 17:47 Temperature Pulse Rate 115 H 110 H 110 H Respiratory Rate 16 27 H 23 H Blood Pressure 93/68 L Pulse Oximetry 94 96 84 L Oxygen Delivery 07/26/24 18:19 07/26/24 18:31 07/26/24 18:32 Temperature Pulse Rate 113 H 110 H 110 H Respiratory Rate 22 H 25 H 21 H Blood Pressure 112/96 H Pulse Oximetry Oxygen Delivery 07/26/24 18:45 07/26/24 18:48 07/26/24 19:00 Temperature Pulse Rate 120 H 109 H 115 H Respiratory Rate 18 24 H 25 H Blood Pressure 111/81 Pulse Oximetry Oxygen Delivery 07/26/24 19:11 07/26/24 19:15 07/26/24 19:18 Temperature Pulse Rate 108 H 104 H 106 H Respiratory Rate 12 16 17 Blood Pressure 129/68 99/69 L Pulse Oximetry 71 L 94 98 Oxygen Delivery Exam Narrative: General: alert and comfortable Eyes: EOMI, PERRLA ENNT External ears normal, Neck is supple, no masses, Respiratory systems: Clear to auscultation Cardiovascular S1, S2, normal rhythm, no murmur, rub, or gallop; no thrill or palpable murmurs on palpation. Gastrointestinal: soft, non-tender, and non-distended abdomen with no masses; BS present Skin: no rash, lesions, ulcerations, subcutaneous nodules or induration Musculoskeletal: no abnormality and no tenderness, normal ROM Neurologic: Alert and oriented x3, non focal Mental Status Exam: normal affect H&P: Results Labs Labs: Short CBC 07/26/24 Range/Units 14:06 WBC 17.6 H (4.5-10.0) K/mm3 Hgb 14.2 (14.0-18.0) g/dL Hct 44.2 (42.0-52.0) % Plt Count 286 (150-375) k/mm3 BMP 07/26/24 14:06 Sodium 137 Potassium 4.7 Chloride 96 L Carbon Dioxide 31 H BUN 24 H Creatinine 1.81 H Glucose 175 H Calcium 8.9 Cardiac Enzymes 07/26/24 07/26/24 Range/Units 14:06 17:52 Troponin I < 0.012 < 0.012 (0.000-0.034) ng/mL Liver Function 07/26/24 Range/Units 14:06 Total Bilirubin 0.8 (0.2-1.3) mg/dL AST 31 (17-59) U/L ALT 34 (6-50) U/L Alkaline Phosphatase 100 (38-126) U/L Albumin 4.3 (3.5-5.1) g/dL Urine 07/26/24 Range/Units 19:13 Urine Color Yellow (Yellow) Urine Appearance Clear (Clear) Urine pH 5.5 (5.0-9.0) Ur Specific [place] 1.020 (1.001-1.035) Urine Protein Negative (Negative) mg/dL Urine Glucose (UA) Negative (Negative) mg/dL Assessment and Plan Assessment and plan (1) Sepsis: Code(s): A41.9 - Sepsis, unspecified organism Status: Acute Plan Sepsis Tachycardia tachypnea, leukocytosis, CT chest showed pneumonia Lactic acid 4.1 Blood culture, MRSA sputum culture ordered. Continue IV fluid, repeat lactic acid. Continue Rocephin and azithromycin Monitor in IMU. Pneumonia CT chest showed bilateral pneumonia. Continue above care. VISHNU on CKD Creatinine 1.81, baseline appears to be 1.3. Continue IV fluid, monitor. Type 2 diabetes SSI with Accu-Cheks monitor nodules with clinical course. COPD No not in exacerbation, no wheezing on auscultation Continue treatment. DVT prophylaxis subQ Lovenox. Full code Surrogate decision maker is Krystle chacon patient's daughter. Hospitalist [facility] Advance Care Plan I have confirmed that the patient's Advanced Care Plan is present, code status is documented, or surrogate decision maker is listed in patient medical record.: Yes Medication Reconciliation I have utilized all available resources to obtain, update and review the patients current medications (includes all prescriptions, OTC, herbals, cannabis, and nutritional supplements).: Yes
[2024-07-26 19:55] LABS: Reflex Lactic Acid Yes or No Add Lactic
[2024-07-26 20:24] LABS: Influenza A QL RT-PCR Negative (Negative); Influenza B QL RT-PCR Negative (Negative); RSV RNA, RT-PCR Negative (Negative); SARS-CoV-2 RNA PCR Negative (Negative)
[2024-07-26 20:49] LABS: Lactic Acid 2.1 mmol/L (0.7-2.0)
[2024-07-26] MEDS: IPRATROPIUM 0.5 MG/ALBUTEROL SULFATE 2.5 MG AMPUL.NEB 3 ML INHALATION (20:56)
[2024-07-26 21:02] LABS: Troponin I < 0.012 ng/mL (0.000-0.034)
[2024-07-26] MEDS: SODIUM CHLORIDE 0.9% IV 1,000 ML 100 ML IV CONT (22:12)
[2024-07-26] MEDS: AZITHROMYCIN 500 MG/NS 250 ML 500 MG/250 ML BAG 250 MG IVPB (22:14)
[2024-07-26 22:46] LABS: Glucose Point of Care 207 mg/dl (65-105)
[2024-07-26] MEDS: HYDROcodone/acetaminophen (*CRX) 5-325 MG TABLET 1 TAB PO (23:30)
[2024-07-27] VITALS (19 sets, daily range): BP systolic 101–142; BP diastolic 60–89; PULSE 64–856; RESP 18–22; TEMP 36.5–38.4; O2SAT 92–100
[2024-07-27 01:03] LABS: MRSA (PCR) NOT DETECTED (NOT DETECTE)
[2024-07-27] MEDS: IPRATROPIUM 0.5 MG/ALBUTEROL SULFATE 2.5 MG AMPUL.NEB 3 ML INHALATION ×3 (01:32→22:24)
[2024-07-27 05:57] LABS: Basophils Percent Auto 0.3 % (0.2-1.2); Eosinophils Absolute Auto 0.1 K/mm3 (0-0.3); Eosinophils Percent Auto 0.9 % (0-4.4); Hematocrit 37.5 % (42.0-52.0); Hemoglobin 11.9 g/dL (14.0-18.0); Immature Granulocyte Absolute 0.12 K/mm3 (0.00-0.031); Immature Granulocyte Percent A 0.8 % (0-0.5); Lymphocytes Absolute Auto 2.33 K/mm3 (0.9-3.2); Lymphocytes Percent Auto 15.8 % (18.3-44.2); Mean Corpuscular HGB Conc 31.7 g/dl (32-36); Mean Corpuscular Hemoglobin 30.6 pg (26-34); Mean Corpuscular Volume 96.4 fl (80-100); Mean Platelet Volume 10.6 fl (7.4-10.4); Monocytes Absolute Auto 1.8 K/mm3 (0.1-0.6); Monocytes Percent Auto 11.9 % (2.6-8.5); Neutrophils Absolute Auto 10.4 K/mm3 (1.3-6.7); Neutrophils Percent Auto 70.3 % (45.5-73.1); Platelet Count Result 222 k/mm3 (150-375); Red Blood Count 3.89 M/mm3 (4.6-6.20); Red Cell Distribution Width 12.8 % (11.5-14.5); White Blood Count 14.8 K/mm3 (4.5-10.0)
[2024-07-27 06:13] LABS: Lactic Acid Reflex 1.3 mmol/L (0.7-2.0)
[2024-07-27 06:16] LABS: Alanine Aminotransferase 24 U/L (6-50); Albumin Level 3.4 g/dL (3.5-5.1); Alkaline Phosphatase 81 U/L (38-126); Anion Gap 6 mmol/L (4-12); Aspartate Amino Transferase 18 U/L (17-59); Bilirubin,Total 0.8 mg/dL (0.2-1.3); Blood Urea Nitrogen 26 mg/dL (9-20); Calcium 8.3 mg/dL (8.4-10.2); Carbon Dioxide 33 mmol/L (22-30); Chloride 100 mmol/L (98-107); Estimated CRCL calculation 28 ml/min; Estimated Glomerular Filt Rate 32; Glucose 102 mg/dL (65-110); Potassium 4.2 mmol/L (3.4-5.0); Sodium 139 mmol/L (137-145)
[2024-07-27] MEDS: HYDROcodone/acetaminophen (*CRX) 5-325 MG TABLET 1 TAB PO (07:54)
[2024-07-27] MEDS: ENOXAPARIN 40 MG/0.4 ML SYRINGE SUB-Q (07:55)
[2024-07-27 08:26] LABS: Glucose Point of Care 92 mg/dl (65-105)
--- NOTE | 2024-07-27 10:02 | P.PNIM_ITS ---
Progress Note: A&P Assessment and Plan (1) Sepsis: Code(s): A41.9 - Sepsis, unspecified organism Status: Acute Assessment and Plan: * Patient initially meeting sepsis criteria with heart rate of 128, tachypneic 24, white blood cell count 17.6, lactic acid 4.0> 2.1> 1.3, chest x-ray showing pneumonia * Blood cultures were obtained and showing no growth to date on preliminary read * Continue Rocephin and Azithromycin * MRSA negative * Patient was given 1L NS with improvement in his HR, RR, and lactic acid level came back down to baseline (2) Pneumonia: Code(s): J18.9 - Pneumonia, unspecified organism Status: Acute Assessment and Plan: * Chest x-ray showing pneumonia * Chest CTA showing pneumonia * Continue Rocephin and azithromycin * MRSA negative * Blood culture showing no growth to date on preliminary read * Currently on room air, keep O2 sat greater than 92% * Continue DuoNeb (3) CKD (chronic kidney disease), stage III: Code(s): N18.3 - Chronic kidney disease, stage 3 (moderate) Status: Acute Assessment and Plan: * Creatinine 1.81, EGFR 36 * Appears to be at patient's baseline, over the past year he has been ranging 1.60-2.00 * Continue to trend * Continue Lasix 80 mg daily (4) Hyperlipidemia: Qualifiers: Hyperlipidemia type: other hyperlipidemia Qualified Code(s): E78.49 - Other hyperlipidemia Code(s): E78.5 - Hyperlipidemia, unspecified Status: Acute Assessment and Plan: * Continue aspirin (5) Essential hypertension: Code(s): I10 - Essential (primary) hypertension Status: Acute Assessment and Plan: * Blood pressure ranging 108/66 to 131/77 * Patient not currently on any blood pressure medication * Continue to trend (6) Type 2 diabetes mellitus: Qualifiers: Diabetes mellitus complication detail: with unspecified neuropathy Diabetes mellitus complication status: with neurologic complications Diabetes mellitus custodial insulin use: without funnel setter use Qualified Code(s): E11.40 - Type 2 diabetes mellitus with diabetic neuropathy, unspecified Code(s): E11.9 - Type 2 diabetes mellitus without complications Status: Acute Assessment and Plan: * Blood sugars ranging 102-212 * Hgb A1C 6.9 on 04/15/2024 * Accu checks AC/HS * Moderate dose SSI ordered * Hold glipizide * hypoglycemic protocol in place * Diabetic diet ordered (7) Gastroesophageal reflux disease: Code(s): K21.9 - Gastro-esophageal reflux disease without esophagitis Status: Acute Assessment and Plan: * Continue Pepcid and Protonix (8) COPD (chronic obstructive pulmonary disease): Code(s): J44.9 - Chronic obstructive pulmonary disease, unspecified Status: Acute Assessment and Plan: * Continue DuoNebs Time Spent With Patient Time with patient: 25 - 35 minutes Subjective Date/time seen: 07/27/24 10:02 Interval history: Interval summary: this is an 84-year-old male with a significant past medical history of chronic kidney disease stage 3, COPD, hyperlipidemia, type 2 diabetes mellitus, vertigo, restless leg syndrome, 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 Workup in the hospital included a chest x-ray which shown left basilar infiltrate and atelectasis with minimal right basilar atelectasis. Chest CTA was negative for PE showed Bibasilar lower lobe and lingular infiltrate or atelectasis. initial labs showed a white blood cell count of 17.6, bicarb 31, creatinine 1.81, EGFR 36, blood sugars ranging 92-207, lactic acid 4.0> 2.1> 1.3, troponin negative x3, proBNP 245. UA was obtained which showed 1+ leukocyte, otherwise negative. MRSA was negative. Respiratory panel was negative for influenza a and B, RSV, COVID. Blood and urine cultures were obtained and pending. EKG showed sinus tach with possible left atrial enlargement, with a rate of 107, QTC 409. Patient was given 324 mg of aspirin, 1 L normal saline, Rocephin, azithromycin while in the ED. Subjective: Patient denies any cough, shortness of breath, chest pain. Labs and imaging reviewed. Review of Systems Review of Systems: All systems reviewed & are unremarkable except as noted in HPI and below Exam Narrative: General: In no acute distress, well nourished Head: atraumatic, no encephalopathy Eyes: PERRLA, sclera clear ENT: moist mucous membranes, nasal passages clear Neck: supple, no JVD, no adenopathy, trachea midline Cardiac: Normal S1 and S2. No murmur, gallops or friction rubs, peripheral pulses intact. Respiratory:Mild crackles in left lung base, no adventitious lung sounds, currently on room air. Denies cough Gastrointestinal: soft, non-distended, non-tender, normoactive bowel sounds. : voiding without difficulty. Extremities: moves all extremities well, no edema Skin: clean, dry, flaky, intact. No wounds or lesions. Neuro: Alert and oriented x4, cranial nerves intact, no neuro deficits. Psych: normal mood, normal affect, interactive Objective Data Vital Signs Vital Signs: Vital Signs - 24 hr 07/26/24 13:59 07/26/24 15:58 07/26/24 17:22 Temperature 98.2 F Pulse Rate 128 H 104 H 106 H Respiratory Rate 18 19 18 Blood Pressure 96/67 L 120/76 Pulse Oximetry 96 93 90 Oxygen Delivery Fraction of Inspired Oxygen 07/26/24 17:23 07/26/24 17:30 07/26/24 17:31 Temperature Pulse Rate 107 H 107 H 106 H Respiratory Rate 24 H 25 H 23 H Blood Pressure 127/105 H 99/79 L Pulse Oximetry 77 L 87 L Oxygen Delivery Fraction of Inspired Oxygen 07/26/24 17:34 07/26/24 17:39 07/26/24 17:41 Temperature Pulse Rate 108 H 107 H Respiratory Rate 22 H 19 Blood Pressure 101/63 101/63 Pulse Oximetry 97 99 98 Oxygen Delivery Room Air Fraction of Inspired Oxygen 07/26/24 17:45 07/26/24 17:46 07/26/24 17:47 Temperature Pulse Rate 115 H 110 H 110 H Respiratory Rate 16 27 H 23 H Blood Pressure 93/68 L Pulse Oximetry 94 96 84 L Oxygen Delivery Fraction of Inspired Oxygen 07/26/24 18:19 07/26/24 18:31 07/26/24 18:32 Temperature Pulse Rate 113 H 110 H 110 H Respiratory Rate 22 H 25 H 21 H Blood Pressure 112/96 H Pulse Oximetry Oxygen Delivery Fraction of Inspired Oxygen 07/26/24 18:45 07/26/24 18:48 07/26/24 19:00 Temperature Pulse Rate 120 H 109 H 115 H Respiratory Rate 18 24 H 25 H Blood Pressure 111/81 Pulse Oximetry Oxygen Delivery Fraction of Inspired Oxygen 07/26/24 19:11 07/26/24 19:15 07/26/24 19:18 Temperature Pulse Rate 108 H 104 H 106 H Respiratory Rate 12 16 17 Blood Pressure 129/68 99/69 L Pulse Oximetry 71 L 94 98 Oxygen Delivery Fraction of Inspired Oxygen 07/26/24 19:47 07/26/24 20:56 07/26/24 21:03 Temperature Pulse Rate 102 H 106 H Respiratory Rate 20 20 Blood Pressure Pulse Oximetry 92 Oxygen Delivery Room Air Fraction of Inspired Oxygen 07/26/24 22:00 07/27/24 00:00 07/27/24 01:32 Temperature 98.3 F Pulse Rate 110 H 101 H Respiratory Rate 22 H Blood Pressure 108/66 Pulse Oximetry 92 92 Oxygen Delivery Room Air Fraction of Inspired Oxygen 21 07/27/24 01:32 07/27/24 01:44 07/27/24 04:00 Temperature Pulse Rate 86 90 88 Respiratory Rate 18 18 Blood Pressure Pulse Oximetry Oxygen Delivery Fraction of Inspired Oxygen 07/27/24 05:21 07/27/24 08:00 07/27/24 08:00 Temperature 97.7 F Pulse Rate 64 92 Respiratory Rate 20 Blood Pressure 101/66 Pulse Oximetry 92 92 Oxygen Delivery Room Air Fraction of Inspired Oxygen Intake/Output Intake/Output: Intake & Output 07/24/24 07/25/24 07/26/24 07/27/24 23:59 23:59 23:59 23:59 Intake Total 1050 350 Output Total 300 300 Balance 750 50 Meds/Results Medications: Active Medications Generic Name Dose Route Start Last Admin Trade Name Freq PRN Reason Stop Dose Admin Hydrocodone Bitart/Acetaminophen 1 tab 07/26/24 23:10 07/27/24 07:54 Hydrocodone/Acetaminophen (*Crx) 5-325 Mg Tablet PO 1 tab Q4H PRN Administration Pain Rated 4-6 Albuterol/Ipratropium 3 ml 07/26/24 20:45 07/27/24 09:27 Ipratropium 0.5 Mg/Albuterol Sulfate 2.5 Mg Ampul.Neb 3 Ml INHALATION Not Given Q6HRT LAURA Dextrose 12.5 gm 07/26/24 19:51 Dextrose 50% 25 Gm/50 Ml Syringe IV PUSH PRN PRN Hypoglycemia Protocol Enoxaparin Sodium 40 mg 07/27/24 09:00 07/27/24 07:55 Enoxaparin 40 Mg/0.4 Ml Syringe SUB-Q 40 mg DAILY LAURA Administration Glucagon 1 mg 07/26/24 19:51 Glucagon For Inj 1 Mg Vial IM PRN PRN Hypoglycemia Protocol Glucose 15 gm 07/26/24 19:51 Glucose Oral Gel 15 Gm Of Glucse In 37.5 Gm Tube PO PRN PRN Hypoglycemia Protocol Ceftriaxone Sodium 1 gm in 50 mls @ 100 mls/hr 07/27/24 21:00 Rocephin 1 Gm/Ns 50 Ml IVPB Q24H LAURA Azithromycin 500 mg in 250 mls @ 250 mls/hr 07/27/24 21:00 Zithromax IVPB Q24H LAURA Dextrose 1,000 mls @ 100 mls/hr 07/26/24 19:51 Dextrose 5% 1,000 Ml IVPB PRN PRN Hypoglycemia Protocol Insulin Aspart 3 - 6 units 07/27/24 08:00 07/27/24 08:44 Insulin Aspart (*Bkc) 100 Units/Ml SUB-Q Not Given TIDWM LAURA Protocol Insulin Aspart 1 - 3 units 07/26/24 21:00 07/26/24 23:09 Insulin Aspart (*Bkc) 100 Units/Ml SUB-Q Not Given HS LAURA Protocol Radiology Results: ITS Impressions Chest X-Ray 07/26/24 15:43 IMPRESSION: Left basilar infiltrate and/atelectasis and minimal right basilar atelectasis Chest CTA 07/26/24 18:40 IMPRESSION: No evidence of pulmonary embolism Bibasilar lower lobe and lingular infiltrate or atelectasis Labs Labs: Laboratory Results - last 24 hr 07/26/24 07/26/24 07/26/24 14:06 17:42 17:52 WBC 17.6 H RBC 4.70 Hgb 14.2 Hct 44.2 MCV 94.0 MCH 30.2 MCHC 32.1 RDW 12.6 Plt Count 286 MPV 10.5 H Immature Gran % (Auto) 0.6 H Neut % (Auto) 78.4 H Lymph % (Auto) 11.0 L [place] % (Auto) 8.1 Eos % (Auto) 1.6 Baso % (Auto) 0.3 Lymph # (Auto) 1.93 [place] # (Auto) 1.4 H Eos # (Auto) 0.3 Baso # (Auto) 0.1 Abs Immat Gran (auto) 0.10 H Absolute Neuts (auto) 13.8 H Absolute Nucleated RBC 0.000 Nucleated RBC % 0.0 PT 13.6 INR 1.0 APTT 27.3 Puncture Site Right radial ABG pH 7.458 H ABG pCO2 33.6 L ABG pO2 64.3 L ABG PO2/FiO2 Ratio 3.06 ABG HCO3 23.3 ABG O2 Saturation 93.7 L ABG O2 Content 18.7 ABG Base Excess 0.1 A-a Gradient 45.2 Oxyhemoglobin 91.2 Total Hemoglobin 14.6 O2 Delivery Device Room air O2 Liters/Min Not Reportable FiO2 21 Sodium 137 Potassium 4.7 Chloride 96 L Carbon Dioxide 31 H Anion Gap 10 BUN 24 H Creatinine 1.81 H Estim Creat Clear Calc 35 Estimated GFR 36 L Glucose 175 H POC Capillary Glucose Lactic Acid 4.0 H Calcium 8.9 Magnesium Cancelled Total Bilirubin 0.8 AST 31 ALT 34 Alkaline Phosphatase 100 Troponin I < 0.012 NT-Pro-B Natriuret Pep Total Protein 9.0 H Albumin 4.3 Lipase 92 Urine Color Urine Appearance Urine pH Ur Specific [place] Urine Protein Urine Glucose (UA) Urine Ketones Ur Blood (Man) Urine Nitrate Urine Bilirubin Urine Urobilinogen Add Ur Microanalysis Leukocyte Esterase Rfl Urine RBC Urine WBC Ur Squamous Epith Cells Urine Bacteria Urine Casts Nasal MRSA (PCR) Influenza A (RT-PCR) Influenza B (RT-PCR) RSV (RT-PCR) SARS-CoV-2 RNA (RT-PCR) 07/26/24 07/26/24 07/26/24 17:52 17:52 17:52 WBC RBC Hgb Hct MCV MCH MCHC RDW Plt Count MPV Immature Gran % (Auto) Neut % (Auto) Lymph % (Auto) [place] % (Auto) Eos % (Auto) Baso % (Auto) Lymph # (Auto) [place] # (Auto) Eos # (Auto) Baso # (Auto) Abs Immat Gran (auto) Absolute Neuts (auto) Absolute Nucleated RBC Nucleated RBC % PT INR APTT Puncture Site ABG pH ABG pCO2 ABG pO2 ABG PO2/FiO2 Ratio ABG HCO3 ABG O2 Saturation ABG O2 Content ABG Base Excess A-a Gradient Oxyhemoglobin Total Hemoglobin O2 Delivery Device O2 Liters/Min FiO2 Sodium Potassium Chloride Carbon Dioxide Anion Gap BUN Creatinine Estim Creat Clear Calc Estimated GFR Glucose POC Capillary Glucose Lactic Acid Calcium Magnesium 2.0 Cancelled Total Bilirubin AST ALT Alkaline Phosphatase Troponin I < 0.012 NT-Pro-B Natriuret Pep Cancelled 245 H Total Protein Albumin Lipase Urine Color Urine Appearance Urine pH Ur Specific [place] Urine Protein Urine Glucose (UA) Urine Ketones Ur Blood (Man) Urine Nitrate Urine Bilirubin Urine Urobilinogen Add Ur Microanalysis Leukocyte Esterase Rfl Urine RBC Urine WBC Ur Squamous Epith Cells Urine Bacteria Urine Casts Nasal MRSA (PCR) Influenza A (RT-PCR) Influenza B (RT-PCR) RSV (RT-PCR) SARS-CoV-2 RNA (RT-PCR) 07/26/24 07/26/24 07/26/24 19:13 19:42 20:15 WBC RBC Hgb Hct MCV MCH MCHC RDW Plt Count MPV Immature Gran % (Auto) Neut % (Auto) Lymph % (Auto) [place] % (Auto) Eos % (Auto) Baso % (Auto) Lymph # (Auto) [place] # (Auto) Eos # (Auto) Baso # (Auto) Abs Immat Gran (auto) Absolute Neuts (auto) Absolute Nucleated RBC Nucleated RBC % PT INR APTT Puncture Site ABG pH ABG pCO2 ABG pO2 ABG PO2/FiO2 Ratio ABG HCO3 ABG O2 Saturation ABG O2 Content ABG Base Excess A-a Gradient Oxyhemoglobin Total Hemoglobin O2 Delivery Device O2 Liters/Min FiO2 Sodium Potassium Chloride Carbon Dioxide Anion Gap BUN Creatinine Estim Creat Clear Calc Estimated GFR Glucose POC Capillary Glucose Lactic Acid 2.1 H Calcium Magnesium Total Bilirubin AST ALT Alkaline Phosphatase Troponin I < 0.012 NT-Pro-B Natriuret Pep Total Protein Albumin Lipase Urine Color Yellow Urine Appearance Clear Urine pH 5.5 Ur Specific [place] 1.020 Urine Protein Negative Urine Glucose (UA) Negative Urine Ketones Negative Ur Blood (Man) Negative Urine Nitrate Negative Urine Bilirubin Negative Urine Urobilinogen 0.2 Add Ur Microanalysis Reviewed Leukocyte Esterase Rfl 1+ H Urine RBC 0-2 Urine WBC 0-5 Ur Squamous Epith Cells None seen Urine Bacteria None seen Urine Casts 0-2 Nasal MRSA (PCR) Influenza A (RT-PCR) Negative Influenza B (RT-PCR) Negative RSV (RT-PCR) Negative SARS-CoV-2 RNA (RT-PCR) Negative 07/26/24 07/26/24 07/27/24 22:19 23:29 05:37 WBC 14.8 H RBC 3.89 L Hgb 11.9 L Hct 37.5 L MCV 96.4 MCH 30.6 MCHC 31.7 L RDW 12.8 Plt Count 222 MPV 10.6 H Immature Gran % (Auto) 0.8 H Neut % (Auto) 70.3 Lymph % (Auto) 15.8 L [place] % (Auto) 11.9 H Eos % (Auto) 0.9 Baso % (Auto) 0.3 Lymph # (Auto) 2.33 [place] # (Auto) 1.8 H Eos # (Auto) 0.1 Baso # (Auto) 0.0 Abs Immat Gran (auto) 0.12 H Absolute Neuts (auto) 10.4 H Absolute Nucleated RBC 0.000 Nucleated RBC % 0.0 PT INR APTT Puncture Site ABG pH ABG pCO2 ABG pO2 ABG PO2/FiO2 Ratio ABG HCO3 ABG O2 Saturation ABG O2 Content ABG Base Excess A-a Gradient Oxyhemoglobin Total Hemoglobin O2 Delivery Device O2 Liters/Min FiO2 Sodium 139 Potassium 4.2 Chloride 100 Carbon Dioxide 33 H Anion Gap 6 BUN 26 H Creatinine 2.00 H Estim Creat Clear Calc 28 Estimated GFR 32 L Glucose 102 POC Capillary Glucose 207 H Lactic Acid Calcium 8.3 L Magnesium 2.0 Total Bilirubin 0.8 AST 18 ALT 24 Alkaline Phosphatase 81 Troponin I NT-Pro-B Natriuret Pep Total Protein 7.0 Albumin 3.4 L Lipase Urine Color Urine Appearance Urine pH Ur Specific [place] Urine Protein Urine Glucose (UA) Urine Ketones Ur Blood (Man) Urine Nitrate Urine Bilirubin Urine Urobilinogen Add Ur Microanalysis Leukocyte Esterase Rfl Urine RBC Urine WBC Ur Squamous Epith Cells Urine Bacteria Urine Casts Nasal MRSA (PCR) Not detected Influenza A (RT-PCR) Influenza B (RT-PCR) RSV (RT-PCR) SARS-CoV-2 RNA (RT-PCR) 07/27/24 07/27/24 05:38 08:23 WBC RBC Hgb Hct MCV MCH MCHC RDW Plt Count MPV Immature Gran % (Auto) Neut % (Auto) Lymph % (Auto) [place] % (Auto) Eos % (Auto) Baso % (Auto) Lymph # (Auto) [place] # (Auto) Eos # (Auto) Baso # (Auto) Abs Immat Gran (auto) Absolute Neuts (auto) Absolute Nucleated RBC Nucleated RBC % PT INR APTT Puncture Site ABG pH ABG pCO2 ABG pO2 ABG PO2/FiO2 Ratio ABG HCO3 ABG O2 Saturation ABG O2 Content ABG Base Excess A-a Gradient Oxyhemoglobin Total Hemoglobin O2 Delivery Device O2 Liters/Min FiO2 Sodium Potassium Chloride Carbon Dioxide Anion Gap BUN Creatinine Estim Creat Clear Calc Estimated GFR Glucose POC Capillary Glucose 92 Lactic Acid 1.3 Calcium Magnesium Total Bilirubin AST ALT Alkaline Phosphatase Troponin I NT-Pro-B Natriuret Pep Total Protein Albumin Lipase Urine Color Urine Appearance Urine pH Ur Specific [place] Urine Protein Urine Glucose (UA) Urine Ketones Ur Blood (Man) Urine Nitrate Urine Bilirubin Urine Urobilinogen Add Ur Microanalysis Leukocyte Esterase Rfl Urine RBC Urine WBC Ur Squamous Epith Cells Urine Bacteria Urine Casts Nasal MRSA (PCR) Influenza A (RT-PCR) Influenza B (RT-PCR) RSV (RT-PCR) SARS-CoV-2 RNA (RT-PCR) Quality VTE Prophylaxis VTE prophylaxis: pharmacologic ordered
[2024-07-27 11:30] LABS: Glucose Point of Care 212 mg/dl (65-105)
--- NOTE | 2024-07-27 16:07 | ECG_ITS ---
Test Date: 2024-07-27 16:23:31 Measurements Intervals Myra Rate: 140 P: 0 NH: 0 QRS: 5 QRSD: 84 T: 29 QT: 269 QTc: 411 Interpretive Statements ATRIAL FIBRILLATION WITH RAPID VENTRICULAR RESPONSE LOW QRS VOLTAGE IN PRECORDIAL LEADS [QRS DEFLECTION < 1.0 mV IN CHEST LEADS] INCOMPLETE RIGHT BUNDLE BRANCH BLOCK ABNORMAL RHYTHM ECG Compared to ECG 07/26/2024 17:20:51 Sinus tachycardia no longer present Electronically Signed On 07-28-2024 15:40:19 CDT by Sissy Umanzor M.D.
--- NOTE | 2024-07-27 16:07 | PC.NURSE ---
Patient on tele and heart rate increased to 130's-140's appears to be in afib. BP 130/70. Demetra Kaye PATROL LADY notified. EKG ordered.
[2024-07-27 16:24] LABS: Glucose Point of Care 157 mg/dl (65-105)
--- NOTE | 2024-07-27 16:42 | PC.NURSE ---
EKG called to Demetra Kaye NP
--- NOTE | 2024-07-27 18:42 | PC.NURSE ---
This patient, Krunal Leal, was transferred to IMU on 07/27/24 at 1842. Personal belongings sent with patient. Report given to Shi DAMON. Appropriate documentation sent with patient.
[2024-07-27] MEDS: AMIODARONE 150 MG/D5W 100 ML 150 MG/100 ML BAG 600 MG IV CONT (18:44)
[2024-07-27] MEDS: AMIODARONE 360 MG/D5W 200 ML 360 MG/200 ML BAG 33.33 MG IV CONT (19:10)
[2024-07-27 19:39] LABS: Troponin I < 0.012 ng/mL (0.000-0.034)
[2024-07-27] MEDS: APIXABAN 5 MG TABLET PO (20:43)
[2024-07-27] MEDS: AZITHROMYCIN 250 MG TABLET 500 MG PO (20:43)
[2024-07-27] MEDS: GABAPENTIN 100 MG CAPSULE 200 MG PO (20:44)
[2024-07-27] MEDS: PANTOPRAZOLE 40 MG TABLET PO (20:45)
[2024-07-27] MEDS: LATANOPROST 0.005% OP SOLN 2.5 ML BTL 1 DROP EACH EYE (20:45)
[2024-07-27] MEDS: rOPINIRole HCL 0.5 MG TABLET PO (20:45)
[2024-07-27 21:10] LABS: Glucose Point of Care 175 mg/dl (65-105)
--- NOTE | 2024-07-27 22:24 | PCRTNOTE ---
Patient move from another floor. Treatment will be given during next rounds.
[2024-07-28] VITALS (32 sets, daily range): BP systolic 100–136; BP diastolic 56–74; PULSE 88–118; RESP 12–20; TEMP 36.3–37; O2SAT 92–96
--- NOTE | 2024-07-28 | ECHO_ITS ---
Patient Info Name: Krunal Leal Age: 84 years : 1940 Gender: Male Ht: 72 in Wt: 221 lbs BSA: 2.28 m2 HR: 114 bpm BP: 136 / 64 mmHg Heart Rhythm: Atrial Fibrillation, Tachycardia Technical Quality: Fair Exam Date: 07/28/2024 1:29 PM Exam Location: Echo Lab Patient Status: Inpatient Admit Date: 07/27/2024 Staff Ordering Physician: Demetra Kaye APRN Stereotype Caster: Rukhsana Crum RDCS Attending Provider: Demetra Kaye APRN Referring Physician: Vargas WORTHINGTON; Exam Type: CA echo doppler color flow Study Info Indications - New onset a-fib Complete two-dimensional, color flow and Doppler transthoracic echocardiogram is performed. Summary 1. Left ventricular chamber dimension is normal. 2. Left ventricular systolic function is normal, estimated at 50-55%. 3. There is mildly increased left ventricular wall thickness. 4. Right ventricular systolic function is normal. 5. There is mild aortic valve stenosis. 6. There is mild tricuspid valve regurgitation. 7. There is small pericardial effusion. Left Ventricle Left ventricular chamber dimension is normal. Left ventricular systolic function is normal, estimated at 50-55%. There is mildly increased left ventricular wall thickness. Left ventricular septal wall motion is abnormal with septal motion related to bundle branch block. The left ventricular diastolic function is abnormal. Right Ventricle Right ventricular chamber dimension is normal. Right ventricular systolic function is normal. Left Atria Left atrial chamber dimension is normal. Right Atria Right atrial chamber dimension is normal. Atrial Septum Intact interatrial septum visualized by color flow imaging. Aortic Valve The aortic valve is not well visualized. There is mild aortic valve stenosis. There is no aortic valve regurgitation. Pulmonic Valve The pulmonic valve is not well visualized. Mitral Valve The mitral valve has thickened leaflets. There is trace mitral valve regurgitation. Tricuspid Valve There is mild tricuspid valve regurgitation. Pericardium/Pleural There is small pericardial effusion. Inferior Vena Cava Normal inferior vena cava with >50% collapse upon inspiration consistent with normal right atrial pressure, 3 mmHg. Aorta The aortic root size at the sinus of Valsalva is normal. Left Ventricular Outflow Tract Name Value Normal LVOT 2D LVOT Diameter 2.0 cm LVOT Doppler LVOT Peak Gradient 2 mmHg LVOT Mean Gradient 1 mmHg LVOT VTI 13 cm LVOT VTI/AV VTI Ratio 0.4 LVOT Stroke Volume 39 ml LVOT CO 9.5 l/min LVOT CI 4.2 l/min/m2 Pulmonic Valve Name Value Normal PV Doppler PV Peak Gradient 3 mmHg Mitral Valve Name Value Normal MV Doppler MV Decel Schleicher 684 cm/s2 MV PHT 43 ms MV Area (PHT) 5.1 cm2 4.0-5.0 MV Diastolic Function MV E Peak Velocity 102 cm/s MV A Peak Velocity 30 cm/s MV E/A 3.4 MV Decel Time 150 ms MV Annular TDI MV E/e' (Septal) 9.1 <=8.0 MV E/e' (Lateral) 9.2 <=8.0 MV E/e' (Average) 9.2 Tricuspid Valve Name Value Normal TV Regurgitation Doppler TR Peak Velocity 239 cm/s TR Peak Gradient 23 mmHg Estimated PAP/RSVP RA Pressure 3 mmHg <=5 PA Systolic Pressure 26 mmHg <36 RV Systolic Pressure 26 mmHg <36 Aorta Name Value Normal Ascending Aorta Ao Root Diameter (MM) 4.0 cm Ao Root Diam Index (MM) 1.7 cm/m2 Aortic Valve Name Value Normal AV Doppler AV Peak Velocity 173 cm/s AV Peak Gradient 12 mmHg AV Mean Gradient 7 mmHg AV VTI 33 cm AV Area (Cont Eq VTI) 1.2 cm2 >=3.0 AV Area (Cont Eq Yang) 1.8 cm2 AV Regurgitation 2D LVOT Area 3.1 cm2 Ventricles Name Value Normal LV Dimensions 2D/MM IVS Diastolic Thickness (2D) 1.1 cm 0.6-1.0 LVID Diastole (2D) 3.3 cm 4.2-5.8 LVIW Diastolic Thickness (2D) 1.0 cm 0.6-1.0 LVID Systole (2D) 2.7 cm 2.5-4.0 LVOT Diameter 2.0 cm LV Mass (2D Cubed) 105.41 g 88.00-224.00 LV Mass Index (2D Cubed) 46 g/m2 49-115 Relative Wall Thickness (2D) 0.62 LV Fractional Shortening/Ejection Fraction 2D/MM LV Fractional Shortening (2D) 19 % 25-43 LV EF (2D Teicholz) 40 % 52-72 LV Diastolic Volume (4C MOD) 54 ml LV EF (4C MOD) 70 % LV Diastolic Volume (2C MOD) 36 ml LV EF (2C MOD) 63 % LV Diastolic Volume (BP MOD) 45 ml 62-150 LV Diastolic Volume Index (BP MOD) 20 ml/m2 34-74 LV Systolic Volume (BP MOD) 15 ml 21-61 LV Systolic Volume Index (BP MOD) 6 ml/m2 11-31 LV EF (BP MOD) 67 % 52-72 LV Diastolic Length (4C) 7.0 cm LV Systolic Length (4C) 5.2 cm LV Stroke Volume (4C MOD) 38 ml RV Dimensions 2D/MM RVID Diastole (2D) 3.2 cm 2.5-3.5 Atria Name Value Normal LA Dimensions LA Dimension (MM) 3.7 cm 3.0-4.1 LA Volume (4C A-L) 38 ml LA Volume (BP A-L) 30 ml RA Dimensions RA Area (4C) 13.1 cm2 <=18.0 Report Signatures
[2024-07-28] MEDS: AMIODARONE 360 MG/D5W 200 ML 360 MG/200 ML BAG 16.67 MG IV CONT ×2 (00:56→13:10)
[2024-07-28] MEDS: IPRATROPIUM 0.5 MG/ALBUTEROL SULFATE 2.5 MG AMPUL.NEB 3 ML INHALATION ×2 (02:02→07:48)
[2024-07-28] MEDS: CHOLECALCIFEROL 5,000 UNITS TABLET 5000 UNITS BY MOUTH (08:17)
[2024-07-28] MEDS: GABAPENTIN 100 MG CAPSULE 200 MG PO ×2 (08:17→20:38)
[2024-07-28] MEDS: PANTOPRAZOLE 40 MG TABLET PO ×2 (08:17→20:40)
[2024-07-28] MEDS: TAMSULOSIN HCL 0.4 MG CAPSULE PO (08:17)
[2024-07-28] MEDS: FAMOTIDINE 20 MG TABLET PO (08:17)
[2024-07-28] MEDS: FUROSEMIDE 80 MG TABLET PO (08:17)
[2024-07-28] MEDS: ASCORBIC ACID 500 MG TABLET PO (08:18)
[2024-07-28] MEDS: APIXABAN 5 MG TABLET PO (08:18)
[2024-07-28 08:29] LABS: Glucose Point of Care 132 mg/dl (65-105)
--- NOTE | 2024-07-28 09:10 | P.PNIM_ITS ---
Progress Note: A&P Assessment and Plan (1) Sepsis: Code(s): A41.9 - Sepsis, unspecified organism Status: Acute Assessment and Plan: * Patient initially meeting sepsis criteria with heart rate of 128, tachypneic 24, white blood cell count 17.6, lactic acid 4.0> 2.1> 1.3, chest x-ray showing pneumonia * Blood cultures were obtained and showing no growth to date on preliminary read * Continue Rocephin and Azithromycin * MRSA negative * Patient was given 1L NS with improvement in his HR, RR, and lactic acid level came back down to baseline 07/28 * Blood cultures showing no growth to date on preliminary read. * Urine culture is negative * Will change to Augmentin and Doxycycline (2) Pneumonia: Code(s): J18.9 - Pneumonia, unspecified organism Status: Acute Assessment and Plan: * Chest x-ray showing pneumonia * Chest CTA showing pneumonia * Continue Rocephin and azithromycin * MRSA negative * Blood culture showing no growth to date on preliminary read * Currently on room air, keep O2 sat greater than 92% * Continue DuoNeb 07/28 * Transitioned to Augmentin and Doxycycline oral * Blood cultures showing no growth. * Duonebs PRN (3) Atrial fibrillation with RVR: Code(s): I48.91 - Unspecified atrial fibrillation Status: Acute Assessment and Plan: Call by bedside nurse yesterday that patient's heart rate went up to 140. We got EKG which confirmed that the patient was in AFib RVR which looks like new onset. Patient was transferred to IMU for further monitoring * Currently AFib with a rate of 90-105 * Still on Amiodarone infusion at 0.5 * Cardiology consulted * Patient started on Eliquis * Echocardiogram ordered * Continuous telemetry monitoring * Continue IMU status for now (4) CKD (chronic kidney disease), stage III: Code(s): N18.3 - Chronic kidney disease, stage 3 (moderate) Status: Acute Assessment and Plan: * Creatinine 1.81, EGFR 36 * Appears to be at patient's baseline, over the past year he has been ranging 1.60-2.00 * Continue to trend * Continue Lasix 80 mg daily 07/28 * Creatinine 1.7 * Back at baseline (5) Hyperlipidemia: Qualifiers: Hyperlipidemia type: other hyperlipidemia Qualified Code(s): E78.49 - Other hyperlipidemia Code(s): E78.5 - Hyperlipidemia, unspecified Status: Acute Assessment and Plan: * Continue aspirin (6) Essential hypertension: Code(s): I10 - Essential (primary) hypertension Status: Acute Assessment and Plan: * Blood pressure ranging 108/66 to 112/70 * Patient not currently on any blood pressure medication * Continue to trend (7) Type 2 diabetes mellitus: Qualifiers: Diabetes mellitus complication detail: with unspecified neuropathy Diabetes mellitus complication status: with neurologic complications Diabetes mellitus mcfp insulin use: without medical terminologist use Qualified Code(s): E11.40 - Type 2 diabetes mellitus with diabetic neuropathy, unspecified Code(s): E11.9 - Type 2 diabetes mellitus without complications Status: Acute Assessment and Plan: * Blood sugars ranging 132-175 * Hgb A1C 6.9 on 04/15/2024 * Accu checks AC/HS * Moderate dose SSI ordered * Hold glipizide * hypoglycemic protocol in place * Diabetic diet ordered (8) Gastroesophageal reflux disease: Code(s): K21.9 - Gastro-esophageal reflux disease without esophagitis Status: Acute Assessment and Plan: * Continue Pepcid and Protonix (9) COPD (chronic obstructive pulmonary disease): Code(s): J44.9 - Chronic obstructive pulmonary disease, unspecified Status: Acute Assessment and Plan: * Continue DuoNebs PRN Time Spent With Patient Time with patient: 25 - 35 minutes Subjective Date/time seen: 07/28/24 09:10 Interval history: Interval summary: This is an 84-year-old male with a significant past medical history of chronic kidney disease stage 3, COPD, hyperlipidemia, type 2 diabetes mellitus, vertigo, restless leg syndrome, 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 Workup in the hospital included a chest x-ray which shown left basilar infiltrate and atelectasis with minimal right basilar atelectasis. Chest CTA was negative for PE showed Bibasilar lower lobe and lingular infiltrate or atelectasis. initial labs showed a white blood cell count of 17.6, bicarb 31, creatinine 1.81, EGFR 36, blood sugars ranging 92-207, lactic acid 4.0> 2.1> 1.3, troponin negative x3, proBNP 245. UA was obtained which showed 1+ leukocyte, otherwise negative. MRSA was negative. Respiratory panel was negative for influenza a and B, RSV, COVID. Blood and urine cultures were obtained and pending. EKG showed sinus tach with possible left atrial enlargement, with a rate of 107, QTC 409. Patient was given 324 mg of aspirin, 1 L normal saline, Rocephin, Azithromycin while in the ED. Subjective: Patient denies any new complaints today. Patient is still in A fib however it is rate controlled on the Amiodarone infusion, 90-105 HR. Labs reviewed. Review of Systems Review of Systems: Other systems reviewed and negative except as noted in history above. All systems reviewed & are unremarkable except as noted in HPI and below Exam Narrative: General: In no acute distress, well nourished Cardiac: Normal S1 and S2. No murmur, gallops or friction rubs, peripheral pulses intact. Respiratory: Lungs clear, no adventitious lung sounds, currently on room air. Denies cough Gastrointestinal: soft, non-distended, non-tender, normoactive bowel sounds. : voiding without difficulty. Neuro: Alert and oriented x3 Objective Data Vital Signs Vital Signs: Vital Signs - 24 hr 07/27/24 12:00 07/27/24 14:00 07/27/24 14:46 Temperature 97.9 F Pulse Rate 856 H 90 Respiratory Rate 18 Blood Pressure 131/77 Pulse Oximetry 100 100 Oxygen Delivery Room Air 07/27/24 14:46 07/27/24 14:53 07/27/24 15:04 Temperature Pulse Rate 90 88 Respiratory Rate 20 20 Blood Pressure Pulse Oximetry Oxygen Delivery Room Air 07/27/24 15:57 07/27/24 16:00 07/27/24 17:33 Temperature 98.4 F Pulse Rate 128 H 122 H Respiratory Rate 22 H Blood Pressure 130/70 142/74 H Pulse Oximetry 97 Oxygen Delivery 07/27/24 18:44 07/27/24 19:10 07/27/24 20:00 Temperature Pulse Rate 139 H 119 H 118 H Respiratory Rate Blood Pressure 132/60 Pulse Oximetry Oxygen Delivery 07/27/24 20:00 07/27/24 20:00 07/27/24 20:28 Temperature 101.1 F H Pulse Rate 116 H 118 H Respiratory Rate 18 Blood Pressure 132/60 Pulse Oximetry 92 92 Oxygen Delivery Room Air 07/27/24 22:00 07/27/24 22:00 07/27/24 22:00 Temperature 98.9 F Pulse Rate 110 H 110 H 110 H Respiratory Rate Blood Pressure 135/89 135/89 Pulse Oximetry Oxygen Delivery 07/27/24 23:42 07/27/24 23:42 07/28/24 00:00 Temperature 99.5 F Pulse Rate 105 H 101 H Respiratory Rate 18 Blood Pressure 110/72 Pulse Oximetry 92 Oxygen Delivery Room Air 07/28/24 00:56 07/28/24 00:56 07/28/24 02:00 Temperature Pulse Rate 97 97 100 Respiratory Rate Blood Pressure 110/72 110/72 106/73 Pulse Oximetry 95 Oxygen Delivery 07/28/24 02:00 07/28/24 02:00 07/28/24 02:01 Temperature Pulse Rate 102 H 97 97 Respiratory Rate 18 Blood Pressure 106/73 Pulse Oximetry Oxygen Delivery 07/28/24 02:10 07/28/24 03:37 07/28/24 04:00 Temperature 98.2 F Pulse Rate 97 100 92 Respiratory Rate 18 18 Blood Pressure 106/63 Pulse Oximetry 95 Oxygen Delivery 07/28/24 04:00 07/28/24 04:00 07/28/24 06:00 Temperature Pulse Rate 100 100 Respiratory Rate Blood Pressure 106/63 Pulse Oximetry 95 Oxygen Delivery Room Air 07/28/24 06:00 07/28/24 06:00 07/28/24 07:33 Temperature 97.9 F Pulse Rate 99 99 93 Respiratory Rate 20 Blood Pressure 136/64 136/64 109/56 L Pulse Oximetry 92 Oxygen Delivery 07/28/24 07:48 07/28/24 08:05 Temperature Pulse Rate 88 93 Respiratory Rate 18 Blood Pressure 109/56 L Pulse Oximetry Oxygen Delivery Intake/Output Intake/Output: Intake & Output 07/25/24 07/26/24 07/27/24 07/28/24 23:59 23:59 23:59 23:59 Intake Total 1050 1224.5 456.9 Output Total 300 1180 200 Balance 750 44.5 256.9 Meds/Results Medications: Active Medications Generic Name Dose Route Start Last Admin Trade Name Freq PRN Reason Stop Dose Admin Hydrocodone Bitart/Acetaminophen 1 tab 07/26/24 23:10 07/27/24 07:54 Hydrocodone/Acetaminophen (*Crx) 5-325 Mg Tablet PO 1 tab Q4H PRN Administration Pain Rated 4-6 Albuterol/Ipratropium 3 ml 07/26/24 20:45 07/28/24 07:48 Ipratropium 0.5 Mg/Albuterol Sulfate 2.5 Mg Ampul.Neb 3 Ml INHALATION 3 ml Q6HRT [facility] Administration Apixaban 5 mg 07/27/24 21:00 07/28/24 08:18 Apixaban 5 Mg Tablet PO 5 mg Q12HR [facility] Administration Ascorbic Acid 500 mg 07/28/24 09:00 07/28/24 08:18 Ascorbic Acid 500 Mg Tablet PO 500 mg DAILY [facility] Administration Azithromycin 500 mg 07/27/24 21:00 07/27/24 20:43 Azithromycin 250 Mg Tablet PO 07/30/24 21:01 500 mg QHS [facility] Administration Dextrose 12.5 gm 07/26/24 19:51 Dextrose 50% 25 Gm/50 Ml Syringe IV PUSH PRN PRN Hypoglycemia Protocol Famotidine 20 mg 07/28/24 09:00 07/28/24 08:17 Famotidine 20 Mg Tablet PO 20 mg DAILY [facility] Administration Furosemide 80 mg 07/28/24 09:00 07/28/24 08:17 Furosemide 80 Mg Tablet PO 80 mg DAILY [facility] Administration Gabapentin 200 mg 07/27/24 21:00 07/28/24 08:17 Gabapentin 100 Mg Capsule PO 200 mg Q12HR [facility] Administration Glucagon 1 mg 07/26/24 19:51 Glucagon For Inj 1 Mg Vial IM PRN PRN Hypoglycemia Protocol Glucose 15 gm 07/26/24 19:51 Glucose Oral Gel 15 Gm Of Glucse In 37.5 Gm Tube PO PRN PRN Hypoglycemia Protocol Ceftriaxone Sodium 1 gm in 50 mls @ 100 mls/hr 07/27/24 21:00 07/27/24 21:27 Rocephin 1 Gm/Ns 50 Ml IVPB Infused Q24H [facility] Infusion Dextrose 1,000 mls @ 100 mls/hr 07/26/24 19:51 Dextrose 5% 1,000 Ml IVPB PRN PRN Hypoglycemia Protocol Amiodarone HCl/Dextrose 360 mg in 200 mls @ 16.667 mls/hr 07/28/24 00:42 07/28/24 08:05 Nexterone 360 Mg/D5w 200 Ml IV CONT 0.5 mg/min .Q12H [facility] 16.67 mls/hr Infusion 0.5 MG/MIN Insulin Aspart 3 - 6 units 07/27/24 08:00 07/28/24 08:18 Insulin Aspart (*Bkc) 100 Units/Ml SUB-Q Not Given TIDWM [facility] Protocol Insulin Aspart 1 - 3 units 07/26/24 21:00 07/27/24 20:44 Insulin Aspart (*Bkc) 100 Units/Ml SUB-Q Not Given HS [facility] Protocol Latanoprost 1 drop 07/27/24 21:00 07/27/24 20:45 Latanoprost 0.005% Op Soln 2.5 Ml Btl EACH EYE 1 drop HS [facility] Administration Pantoprazole Sodium 40 mg 07/27/24 21:00 07/28/24 08:17 Pantoprazole 40 Mg Tablet PO 40 mg Q12HR [facility] Administration Perflutren Lipid Microsphere 0 ml 07/27/24 16:56 Perflutren Lipid Microspheres 1.5 Ml Vial Diluted To 10 Ml Total Volume IV PUSH 07/30/24 16:57 ONCE PRN adequate visualization Protocol Ropinirole HCl 0.5 mg 07/27/24 21:00 07/27/24 20:45 Ropinirole Hcl 0.5 Mg Tablet PO 0.5 mg HS [facility] Administration Tamsulosin HCl 0.4 mg 07/28/24 09:00 07/28/24 08:17 Tamsulosin Hcl 0.4 Mg Capsule PO 0.4 mg DAILY [facility] Administration Vitamin D 5,000 units 07/28/24 09:00 07/28/24 08:17 Cholecalciferol 5,000 Units Tablet BY MOUTH 5,000 units DAILY [facility] Administration Radiology Results: ITS Impressions Chest CTA 07/26/24 18:40 IMPRESSION: No evidence of pulmonary embolism Bibasilar lower lobe and lingular infiltrate or atelectasis Chest X-Ray 07/27/24 17:08 IMPRESSION: Left lower lobe atelectasis versus pneumonia. Labs Labs: Laboratory Results - last 24 hr 07/27/24 07/27/24 07/27/24 11:18 16:17 19:10 POC Capillary Glucose 212 H 157 H Troponin I < 0.012 07/27/24 07/28/24 20:40 07:32 POC Capillary Glucose 175 H 132 H Troponin I Quality VTE Prophylaxis VTE prophylaxis: pharmacologic ordered
[2024-07-28 09:51] LABS: Basophils Percent Auto 0.3 % (0.2-1.2); Eosinophils Absolute Auto 0.2 K/mm3 (0-0.3); Eosinophils Percent Auto 1.8 % (0-4.4); Hematocrit 38.3 % (42.0-52.0); Hemoglobin 12.3 g/dL (14.0-18.0); Immature Granulocyte Percent A 0.7 % (0-0.5); Lymphocytes Absolute Auto 2.08 K/mm3 (0.9-3.2); Lymphocytes Percent Auto 15.5 % (18.3-44.2); Mean Corpuscular HGB Conc 32.1 g/dl (32-36); Mean Corpuscular Hemoglobin 30.3 pg (26-34); Mean Corpuscular Volume 94.3 fl (80-100); Mean Platelet Volume 10.6 fl (7.4-10.4); Monocytes Absolute Auto 1.4 K/mm3 (0.1-0.6); Monocytes Percent Auto 10.3 % (2.6-8.5); Neutrophils Absolute Auto 9.6 K/mm3 (1.3-6.7); Neutrophils Percent Auto 71.4 % (45.5-73.1); Platelet Count Result 223 k/mm3 (150-375); Red Blood Count 4.06 M/mm3 (4.6-6.20); Red Cell Distribution Width 12.8 % (11.5-14.5); White Blood Count 13.4 K/mm3 (4.5-10.0)
[2024-07-28 10:01] LABS: Alanine Aminotransferase 21 U/L (6-50); Albumin Level 3.6 g/dL (3.5-5.1); Alkaline Phosphatase 86 U/L (38-126); Anion Gap 9 mmol/L (4-12); Aspartate Amino Transferase 19 U/L (17-59); Bilirubin,Total 0.5 mg/dL (0.2-1.3); Blood Urea Nitrogen 20 mg/dL (9-20); Calcium 8.6 mg/dL (8.4-10.2); Carbon Dioxide 27 mmol/L (22-30); Chloride 100 mmol/L (98-107); Estimated CRCL calculation 33 ml/min; Estimated Glomerular Filt Rate 39; Glucose 157 mg/dL (65-110); Potassium 4.1 mmol/L (3.4-5.0); Sodium 136 mmol/L (137-145)
[2024-07-28 11:55] LABS: Glucose Point of Care 172 mg/dl (65-105)
--- NOTE | 2024-07-28 12:57 | PM.CNCAR ---
Assessment and Plan Assessment and plan (1) Atrial fibrillation with RVR: Code(s): I48.91 - Unspecified atrial fibrillation Status: Acute Plan 1. Atrial fibrillation with RVR. New diagnosis for the patient. 2. Sepsis 3. Pneumonia 4. CKD 5. Hypertension 6. Hyperlipidemia 7. Diabetes mellitus PLAN: -Check TSH level. -Obtain echocardiogram. -Continue Amiodarone drip for now. If he ends up converting, will transition to PO Amiodarone. -Start Metoprolol 25mg BID. -Has been started on Eliquis 5mg BID. However, given his age and renal function, should be on 2.5mg BID. Order adjusted. History of Present Illness History of Present Illness Consult date/time: 07/28/24 12:57 Requesting physician: Demetra Kaye APRN Consult reason: atrial fibrillation Reason For Visit: CAP Narrative: We are consulted for atrial fibrillation. This is an 84 year old male with CKD, hypertension, hyperlipidemia, type 2 diabetes mellitus, COPD GERD, former smoker who is admitted with sepsis and pneumonia. Yesterday afternoon, he was noted to go into new atrial fibrillation with RVR. Transferred to IMU and started on IMU drip. Currently remains in AFIB with heart rates in the 110s. He does not feel any palpitations, chest pain. Initial EKG on admission showed sinus tachycardia with PACs. EKG from yesterday does confirm AFIB. This is a new diagnosis for the patient. Review of Systems Review of Systems: All systems reviewed & are unremarkable except as noted in HPI and below (HPI) [facility] Past Medical History Medical History BMI 31.0-31.9,adult Chronic kidney disease, stage 3 Chronic obstructive pulmonary disease Hyperlipidemia Type 2 diabetes mellitus Benign positional vertigo Chronic neck pain Restless legs syndrome Pulmonary asbestosis Exposure to asbestos Impaired glucose tolerance Benign prostatic hyperplasia with lower urinary tract symptoms Gastroesophageal reflux disease Polyarthritis Surgical History Surgical History History of hernia repair Family History Family History Mother Family history of malignant neoplasm Patient's mother is Father Family history of malignant neoplasm Patient's father is Sibling No problems noted. Social History Social History Social History: The patient lives with significant other shannen. He has 3 children. He is retired from [employer] Surrogate medical decision maker: Krunal Leal, son. Code status: Full code. Smoking packs per day: 1 Smoking cigarettes per day: 20.0 Years smoked: 15 Smoking pack-years: 15.00 Smoking status: Former smoker Tobacco type: cigarettes Second hand tobacco smoke exposure: No Smoking end date: 05/06/86 Alcohol intake: former Drinks per week: 14 Substance use: never Substance use type: does not use Do You Feel Safe in your Home?: Yes Lack of Transportation: No Lack of Food: Never True Current Housing: I Have Housing Concerned About Future Housing: No Difficulty Paying Gas/Electric Bills: No Difficulty Paying for Meds: No Currently Unemployed: No Education: High School Diploma/GED Difficulty w/ Childcare or Family Care: No Living arrangements: with family Additional living arrangements comments: Lives in [place] with significant other. 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 Gender identity (if verbalized by the patient): Male Spiritual care concerns: No Meds Home Medications and Allergies Home Medications ?Medication ?Instructions ?Recorded ?Confirmed ?Type ascorbic acid (vitamin C) 500 mg 500 mg PO DAILY 10/05/21 07/26/24 History capsule cholecalciferol (vitamin D3) 125 125 mcg PO DAILY 10/05/21 07/26/24 History mcg (5,000 unit) capsule zinc acetate 50 mg (zinc) capsule 50 mg PO DAILY 10/05/21 07/26/24 History latanoprost 0.005 % eye drops 1 drp EACH EYE HS 07/01/22 07/26/24 History benzonatate 200 mg capsule 200 mg PO TID PRN cough #30 caps 03/25/23 07/26/24 Rx gabapentin 100 mg capsule 200 mg (2 x 100 mg) PO BID #120 12/31/23 07/26/24 Rx caps furosemide 80 mg tablet See Rx Instructions .Route 02/14/24 07/26/24 Rx .COMPLEX #90 tabs potassium chloride 20 mEq 20 meq PO DAILY #90 tabs 02/14/24 07/26/24 Rx tablet,extended release tamsulosin 0.4 mg capsule 0.4 mg PO DAILY #90 caps 02/14/24 07/26/24 Rx famotidine 20 mg tablet 20 mg PO DAILY #90 tabs 02/27/24 07/26/24 Rx diclofenac sodium 1 % topical gel 2 g topical QID #100 grams 03/05/24 07/26/24 Rx triamcinolone acetonide 0.1 % See Rx Instructions .Route 03/24/24 07/26/24 Rx topical cream .COMPLEX #80 grams albuterol sulfate 90 mcg/actuation 2 inh inhalation QID PRN shortness 04/07/24 07/26/24 Rx aerosol inhaler of breath or wheezing #8.5 grams meclizine 25 mg tablet See Rx Instructions .Route 04/07/24 07/26/24 Rx .COMPLEX #90 tabs cyclobenzaprine 5 mg tablet See Rx Instructions .Route 04/15/24 07/26/24 Rx .COMPLEX #30 tabs glipizide 5 mg tablet 5 mg PO DAILY #90 tabs 04/15/24 07/26/24 Rx tiotropium bromide 2.5 2 puff inhalation DAILY #4 grams 04/15/24 07/26/24 Rx mcg/actuation mist for inhalation (Spiriva Respimat) ropinirole 0.5 mg tablet See Rx Instructions .Route 05/08/24 07/26/24 Rx .COMPLEX #90 tabs pantoprazole 40 mg tablet,delayed 40 mg PO BID #180 tabs 07/23/24 07/26/24 Rx release Allergies Allergy/AdvReac Type Severity Reaction Status Date / Time No Known Allergies Allergy Verified 07/26/24 13:57 Vital Signs Vital Signs - 24 hr 07/27/24 14:00 07/27/24 14:46 07/27/24 14:46 Temperature 36.6 C Pulse Rate 90 90 Respiratory Rate 18 20 Blood Pressure 131/77 Pulse Oximetry 100 100 Oxygen Delivery Room Air 07/27/24 14:53 07/27/24 15:04 07/27/24 15:57 Temperature Pulse Rate 88 Respiratory Rate 20 Blood Pressure 130/70 Pulse Oximetry Oxygen Delivery Room Air 07/27/24 16:00 07/27/24 17:33 07/27/24 18:44 Temperature 36.9 C Pulse Rate 128 H 122 H 139 H Respiratory Rate 22 H Blood Pressure 142/74 H Pulse Oximetry 97 Oxygen Delivery 07/27/24 19:10 07/27/24 20:00 07/27/24 20:00 Temperature Pulse Rate 119 H 118 H 116 H Respiratory Rate Blood Pressure 132/60 Pulse Oximetry Oxygen Delivery 07/27/24 20:00 07/27/24 20:28 07/27/24 22:00 Temperature 38.4 C H 37.2 C Pulse Rate 118 H 110 H Respiratory Rate 18 Blood Pressure 132/60 135/89 Pulse Oximetry 92 92 Oxygen Delivery Room Air 07/27/24 22:00 07/27/24 22:00 07/27/24 23:42 Temperature Pulse Rate 110 H 110 H Respiratory Rate Blood Pressure 135/89 Pulse Oximetry Oxygen Delivery Room Air 07/27/24 23:42 07/28/24 00:00 07/28/24 00:56 Temperature 37.5 C Pulse Rate 105 H 101 H 97 Respiratory Rate 18 Blood Pressure 110/72 110/72 Pulse Oximetry 92 Oxygen Delivery 07/28/24 00:56 07/28/24 02:00 07/28/24 02:00 Temperature Pulse Rate 97 100 102 H Respiratory Rate Blood Pressure 110/72 106/73 Pulse Oximetry 95 Oxygen Delivery 07/28/24 02:00 07/28/24 02:01 07/28/24 02:10 Temperature Pulse Rate 97 97 97 Respiratory Rate 18 18 Blood Pressure 106/73 Pulse Oximetry Oxygen Delivery 07/28/24 03:37 07/28/24 04:00 07/28/24 04:00 Temperature 36.8 C Pulse Rate 100 92 Respiratory Rate 18 Blood Pressure 106/63 Pulse Oximetry 95 95 Oxygen Delivery Room Air 07/28/24 04:00 07/28/24 06:00 07/28/24 06:00 Temperature Pulse Rate 100 100 99 Respiratory Rate Blood Pressure 106/63 136/64 Pulse Oximetry Oxygen Delivery 07/28/24 06:00 07/28/24 07:33 07/28/24 07:48 Temperature 36.6 C Pulse Rate 99 93 88 Respiratory Rate 20 18 Blood Pressure 136/64 109/56 L Pulse Oximetry 92 Oxygen Delivery 07/28/24 08:00 07/28/24 08:05 07/28/24 10:00 Temperature Pulse Rate 98 93 104 H Respiratory Rate Blood Pressure 109/56 L Pulse Oximetry Oxygen Delivery 07/28/24 10:00 07/28/24 10:05 07/28/24 11:20 Temperature 36.4 C Pulse Rate 102 H 104 H Respiratory Rate 12 Blood Pressure 112/70 112/70 Pulse Oximetry 96 Oxygen Delivery Room Air 07/28/24 11:26 07/28/24 12:00 07/28/24 12:00 Temperature 36.3 C L Pulse Rate 109 H 109 H 109 H Respiratory Rate 20 Blood Pressure 110/72 110/72 Pulse Oximetry 94 Oxygen Delivery Exam Const: General: no acute distress HENMT: Mouth: Yes moist mucous membranes Eyes: General: appearance normal, both eyes and all related structures Sclera: sclerae normal Resp: Effort & Inspection: normal respiratory effort Cardio: Rate: tachycardic Rhythm: abnormal rhythm irregularly irregular Heart sounds: no murmurs Neuro: Speech: normal speech Psych: Mental Status: mental status grossly normal Affect: normal affect Results Labs and Meds 07/28/24 09:34 07/28/24 09:34 Lab results: Cardiac Enzymes 07/27/24 07/28/24 Range/Units 19:10 09:34 AST 19 (17-59) U/L Troponin I < 0.012 (0.000-0.034) ng/mL CBC 07/28/24 Range/Units 09:34 WBC 13.4 H (4.5-10.0) K/mm3 RBC 4.06 L (4.6-6.20) M/mm3 Hgb 12.3 L (14.0-18.0) g/dL Hct 38.3 L (42.0-52.0) % Plt Count 223 (150-375) k/mm3 Lymph # (Auto) 2.08 (0.9-3.2) K/mm3 [place] # (Auto) 1.4 H (0.1-0.6) K/mm3 Eos # (Auto) 0.2 (0-0.3) K/mm3 Baso # (Auto) 0.0 (0.0-0.1) K/mm3 Comprehensive Metabolic Panel 07/28/24 Range/Units 09:34 Sodium 136 L (137-145) mmol/L Potassium 4.1 (3.4-5.0) mmol/L Chloride 100 (98-107) mmol/L Carbon Dioxide 27 (22-30) mmol/L BUN 20 (9-20) mg/dL Creatinine 1.70 H (0.7-1.3) mg/dL Glucose 157 H (65-110) mg/dL Calcium 8.6 (8.4-10.2) mg/dL AST 19 (17-59) U/L ALT 21 (6-50) U/L Alkaline Phosphatase 86 (38-126) U/L Total Protein 7.0 (6.3-8.2) g/dL Albumin 3.6 (3.5-5.1) g/dL Intake and Output 07/27/24 07/28/24 07/28/24 23:59 07:59 15:59 Intake Total 394.5 422.2 580.0 Output Total 680 200 Balance -285.5 222.2 580.0 Intake: IV 144.5 182.2 100.0 Amiodarone 360 mg/D5w 200 ml 94.5 182.2 100.0 360 mg In 200 ml @ 0.5 MG/MIN 16.667 mls/hr IV CONT .Q12H [facility] Rx#:[id number] cefTRIAXone 1 GM/NS 50 ML 1 gm 50 In 50 ml @ 100 mls/hr IVPB Q24H [facility] Rx#:[id number] Oral 250 240 480 Output: Urine 680 200
[2024-07-28] MEDS: METOPROLOL TARTRATE 25 MG TABLET PO ×2 (13:09→20:39)
[2024-07-28 16:48] LABS: Glucose Point of Care 160 mg/dl (65-105)
--- NOTE | 2024-07-28 18:45 | PC.NURSE ---
On 07/28/24, the student, [Shahla Ye ], provided care and completed [facility] documentation on this patient. I have reviewed the student's documentation and agree with the findings.
[2024-07-28] MEDS: APIXABAN 2.5 MG TABLET PO (20:38)
[2024-07-28] MEDS: DOXYCYCLINE HYCLATE 100 MG TABLET PO (20:38)
[2024-07-28] MEDS: AMOXICILLIN/CLAVULANATE K 875-125 MG TAB 1 TABLET PO (20:38)
[2024-07-28] MEDS: LATANOPROST 0.005% OP SOLN 2.5 ML BTL 1 DROP EACH EYE (20:39)
[2024-07-28] MEDS: rOPINIRole HCL 0.5 MG TABLET PO (20:39)
[2024-07-28 21:03] LABS: Glucose Point of Care 145 mg/dl (65-105)
[2024-07-29] VITALS (19 sets, daily range): BP systolic 109–154; BP diastolic 53–86; PULSE 63–86; RESP 18–20; TEMP 35.9–36.8; O2SAT 92–96
[2024-07-29] MEDS: AMIODARONE 360 MG/D5W 200 ML 360 MG/200 ML BAG 16.67 MG IV CONT (01:35)
[2024-07-29 06:04] LABS: Basophils Percent Auto 0.3 % (0.2-1.2); Eosinophils Absolute Auto 0.4 K/mm3 (0-0.3); Eosinophils Percent Auto 2.8 % (0-4.4); Hematocrit 37.8 % (42.0-52.0); Hemoglobin 12.1 g/dL (14.0-18.0); Immature Granulocyte Percent A 0.8 % (0-0.5); Lymphocytes Absolute Auto 2.38 K/mm3 (0.9-3.2); Lymphocytes Percent Auto 18.3 % (18.3-44.2); Mean Corpuscular Hemoglobin 30.5 pg (26-34); Mean Corpuscular Volume 95.2 fl (80-100); Mean Platelet Volume 10.7 fl (7.4-10.4); Monocytes Absolute Auto 1.3 K/mm3 (0.1-0.6); Monocytes Percent Auto 9.8 % (2.6-8.5); Neutrophils Absolute Auto 8.9 K/mm3 (1.3-6.7); Platelet Count Result 221 k/mm3 (150-375); Red Blood Count 3.97 M/mm3 (4.6-6.20); Red Cell Distribution Width 12.6 % (11.5-14.5)
[2024-07-29 06:30] LABS: Alanine Aminotransferase 35 U/L (6-50); Albumin Level 3.4 g/dL (3.5-5.1); Alkaline Phosphatase 81 U/L (38-126); Anion Gap 7 mmol/L (4-12); Aspartate Amino Transferase 33 U/L (17-59); Bilirubin,Total 0.3 mg/dL (0.2-1.3); Blood Urea Nitrogen 24 mg/dL (9-20); Calcium 8.6 mg/dL (8.4-10.2); Carbon Dioxide 28 mmol/L (22-30); Chloride 101 mmol/L (98-107); Estimated CRCL calculation 30 ml/min; Estimated Glomerular Filt Rate 35; Glucose 129 mg/dL (65-110); Potassium 3.6 mmol/L (3.4-5.0); Sodium 136 mmol/L (137-145)
[2024-07-29] MEDS: DOXYCYCLINE HYCLATE 100 MG TABLET PO ×2 (08:55→20:18)
[2024-07-29] MEDS: ASCORBIC ACID 500 MG TABLET PO (08:56)
[2024-07-29] MEDS: APIXABAN 2.5 MG TABLET PO ×2 (08:56→20:18)
[2024-07-29] MEDS: FAMOTIDINE 20 MG TABLET PO (08:56)
[2024-07-29] MEDS: PANTOPRAZOLE 40 MG TABLET PO ×2 (08:56→20:18)
[2024-07-29] MEDS: CHOLECALCIFEROL 5,000 UNITS TABLET 5000 UNITS BY MOUTH (08:57)
[2024-07-29] MEDS: FUROSEMIDE 80 MG TABLET PO (08:57)
[2024-07-29] MEDS: GABAPENTIN 100 MG CAPSULE 200 MG PO ×2 (08:57→20:18)
[2024-07-29] MEDS: TAMSULOSIN HCL 0.4 MG CAPSULE PO (08:57)
[2024-07-29] MEDS: METOPROLOL TARTRATE 25 MG TABLET PO ×2 (08:58→20:18)
[2024-07-29] MEDS: AMOXICILLIN/CLAVULANATE K 875-125 MG TAB 1 TABLET PO ×2 (08:58→20:18)
[2024-07-29 09:30] LABS: Glucose Point of Care 121 mg/dl (65-105)
--- NOTE | 2024-07-29 10:45 | P.PNIM_ITS ---
Progress Note: A&P Assessment and Plan (1) Sepsis: Code(s): A41.9 - Sepsis, unspecified organism Status: Acute Assessment and Plan: * Patient initially meeting sepsis criteria with heart rate of 128, tachypneic 24, white blood cell count 17.6, lactic acid 4.0> 2.1> 1.3, chest x-ray showing pneumonia * Blood cultures were obtained and showing no growth to date on preliminary read * Continue Rocephin and Azithromycin * MRSA negative * Patient was given 1L NS with improvement in his HR, RR, and lactic acid level came back down to baseline 07/28 * Blood cultures showing no growth to date on preliminary read. * Urine culture is negative * Will change to Augmentin and Doxycycline (2) Pneumonia: Code(s): J18.9 - Pneumonia, unspecified organism Status: Acute Assessment and Plan: * Chest x-ray showing pneumonia * Chest CTA showing pneumonia * Continue Rocephin and azithromycin * MRSA negative * Blood culture showing no growth to date on preliminary read * Currently on room air, keep O2 sat greater than 92% * Continue DuoNeb 07/28 * Transitioned to Augmentin and Doxycycline oral * Blood cultures showing no growth. * Duonebs PRN (3) Atrial fibrillation with RVR: Code(s): I48.91 - Unspecified atrial fibrillation Status: Acute Assessment and Plan: Call by bedside nurse yesterday that patient's heart rate went up to 140. We got EKG which confirmed that the patient was in AFib RVR which looks like new onset. Patient was transferred to IMU for further monitoring * Currently AFib with a rate of 90-105 * Still on Amiodarone infusion at 0.5 * Cardiology consulted * Patient started on Eliquis * Echocardiogram ordered * Continuous telemetry monitoring * Continue IMU status for now Amiodarone drip has stopped and started Amiodarone 200 mg PO QD and Metoprolol 25 mg PO BID. (4) CKD (chronic kidney disease), stage III: Code(s): N18.3 - Chronic kidney disease, stage 3 (moderate) Status: Acute Assessment and Plan: * Creatinine 1.81, EGFR 36 * Appears to be at patient's baseline, over the past year he has been ranging 1.60-2.00 * Continue to trend * Continue Lasix 80 mg daily 3/25 * Creatinine 1.7 * Back at baseline (5) Hyperlipidemia: Qualifiers: Hyperlipidemia type: other hyperlipidemia Qualified Code(s): E78.49 - Other hyperlipidemia Code(s): E78.5 - Hyperlipidemia, unspecified Status: Acute Assessment and Plan: * Continue aspirin (6) Essential hypertension: Code(s): I10 - Essential (primary) hypertension Status: Acute Assessment and Plan: * Blood pressure ranging 108/66 to 112/70 * Patient not currently on any blood pressure medication * Continue to trend (7) Type 2 diabetes mellitus: Qualifiers: Diabetes mellitus complication detail: with unspecified neuropathy Diabetes mellitus complication status: with neurologic complications Diabetes mellitus technician terminal and repeater insulin use: without senior living use Qualified Code(s): E11.40 - Type 2 diabetes mellitus with diabetic neuropathy, unspecified Code(s): E11.9 - Type 2 diabetes mellitus without complications Status: Acute Assessment and Plan: * Blood sugars ranging 132-175 * Hgb A1C 6.9 on 04/15/2024 * Accu checks AC/HS * Moderate dose SSI ordered * Hold glipizide * hypoglycemic protocol in place * Diabetic diet ordered (8) Gastroesophageal reflux disease: Code(s): K21.9 - Gastro-esophageal reflux disease without esophagitis Status: Acute Assessment and Plan: * Continue Pepcid and Protonix (9) COPD (chronic obstructive pulmonary disease): Code(s): J44.9 - Chronic obstructive pulmonary disease, unspecified Status: Acute Assessment and Plan: * Continue DuoNebs PRN Subjective Date/time seen: 07/29/24 10:45 Interval history: Interval summary: This is an 84-year-old male with a significant past medical history of chronic kidney disease stage 3, COPD, hyperlipidemia, type 2 diabetes mellitus, vertigo, restless leg syndrome, 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 Workup in the hospital included a chest x-ray which shown left basilar infiltrate and atelectasis with minimal right basilar atelectasis. Chest CTA was negative for PE showed Bibasilar lower lobe and lingular infiltrate or atelectasis. initial labs showed a white blood cell count of 17.6, bicarb 31, creatinine 1.81, EGFR 36, blood sugars ranging 92-207, lactic acid 4.0> 2.1> 1.3, troponin negative x3, proBNP 245. UA was obtained which showed 1+ leukocyte, otherwise negative. MRSA was negative. Respiratory panel was negative for influenza a and B, RSV, COVID. Blood and urine cultures were obtained and pending. EKG showed sinus tach with possible left atrial enlargement, with a rate of 107, QTC 409. Patient was given 324 mg of aspirin, 1 L normal saline, Rocephin, Azithromycin while in the ED. 07/29: Patient WBC increased and will monitor for a day. Amiodarone drip has stopped and started Amiodarone 200 mg PO QD and Metoprolol 25 mg PO BID. Review of Systems Review of Systems: Other systems reviewed and negative except as noted in history above. All systems reviewed & are unremarkable except as noted in HPI and below Exam Narrative: General: In no acute distress, well nourished Cardiac: Normal S1 and S2. No murmur, gallops or friction rubs, peripheral puls es intact. Respiratory: Lungs clear, no adventitious lung sounds, currently on room air. Denies cough Gastrointestinal: soft, non-distended, non-tender, normoactive bowel sounds. : voiding without difficulty. Neuro: Alert and oriented x3 Objective Data Vital Signs Vital Signs: Vital Signs - 24 hr 07/28/24 11:20 07/28/24 11:26 07/28/24 12:00 Temperature 97.3 F L Pulse Rate 109 H 109 H Respiratory Rate 20 Blood Pressure 110/72 110/72 Pulse Oximetry 94 Oxygen Delivery Room Air 07/28/24 12:00 07/28/24 12:57 07/28/24 13:09 Temperature Pulse Rate 109 H 115 H 115 H Respiratory Rate Blood Pressure 104/65 Pulse Oximetry Oxygen Delivery 07/28/24 13:10 07/28/24 14:00 07/28/24 14:00 Temperature 98.4 F Pulse Rate 115 H 118 H 107 H Respiratory Rate 20 Blood Pressure 104/65 100/63 Pulse Oximetry 96 Oxygen Delivery 07/28/24 14:33 07/28/24 15:29 07/28/24 16:00 Temperature 98.4 F Pulse Rate 118 H 107 H 112 H Respiratory Rate 20 Blood Pressure 100/63 102/67 Pulse Oximetry 96 Oxygen Delivery 07/28/24 16:05 07/28/24 18:00 07/28/24 18:00 Temperature Pulse Rate 107 H 102 H 98 Respiratory Rate Blood Pressure 102/67 113/74 Pulse Oximetry Oxygen Delivery 07/28/24 18:10 07/28/24 20:00 07/28/24 20:00 Temperature Pulse Rate 98 90 Respiratory Rate Blood Pressure 113/74 Pulse Oximetry Oxygen Delivery Room Air 07/28/24 20:00 07/28/24 20:22 07/28/24 20:39 Temperature 98.3 F Pulse Rate 93 100 90 Respiratory Rate 20 Blood Pressure 118/68 Pulse Oximetry 95 Oxygen Delivery 07/28/24 22:00 07/28/24 22:00 07/28/24 22:50 Temperature Pulse Rate 105 H 105 H Respiratory Rate Blood Pressure 117/58 L 117/58 L Pulse Oximetry 95 96 Oxygen Delivery Room Air 07/28/24 23:56 07/29/24 00:00 07/29/24 00:00 Temperature 98.6 F Pulse Rate 106 H 86 Respiratory Rate 18 Blood Pressure 101/62 Pulse Oximetry 92 Oxygen Delivery Room Air 07/29/24 00:00 07/29/24 01:10 07/29/24 01:35 Temperature Pulse Rate 80 80 80 Respiratory Rate Blood Pressure Pulse Oximetry Oxygen Delivery 07/29/24 02:00 07/29/24 02:00 07/29/24 03:59 Temperature Pulse Rate 83 71 Respiratory Rate Blood Pressure 116/60 Pulse Oximetry 96 Oxygen Delivery Room Air 07/29/24 04:00 07/29/24 04:00 07/29/24 04:18 Temperature 98.3 F Pulse Rate 76 75 71 Respiratory Rate 20 Blood Pressure 120/62 Pulse Oximetry 92 Oxygen Delivery 07/29/24 06:00 07/29/24 06:17 07/29/24 07:51 Temperature 98.2 F Pulse Rate 80 71 84 Respiratory Rate 20 Blood Pressure 111/53 L 121/62 Pulse Oximetry 92 96 Oxygen Delivery 07/29/24 08:00 07/29/24 08:58 07/29/24 10:00 Temperature Pulse Rate 84 85 78 Respiratory Rate Blood Pressure 121/62 123/72 Pulse Oximetry Oxygen Delivery Intake/Output Intake/Output: Intake & Output 07/26/24 07/27/24 07/28/24 07/29/24 23:59 23:59 23:59 23:59 Intake Total 1050 1224.5 1405.1 1192.8 Output Total 300 1180 2450 650 Balance 750 44.5 -1044.9 542.8 Meds/Results Medications: Active Medications Generic Name Dose Route Start Last Admin Trade Name Freq PRN Reason Stop Dose Admin Hydrocodone Bitart/Acetaminophen 1 tab 07/26/24 23:10 07/27/24 07:54 Hydrocodone/Acetaminophen (*Crx) 5-325 Mg Tablet PO 1 tab Q4H PRN Administration Pain Rated 4-6 Albuterol/Ipratropium 3 ml 07/28/24 11:50 Ipratropium 0.5 Mg/Albuterol Sulfate 2.5 Mg Ampul.Neb 3 Ml INHALATION Q6HRT PRN wheezing Amoxicillin/Clavulanate Potassium 1 tablet 07/28/24 21:00 07/29/24 08:58 Amoxicillin/Clavulanate K 875-125 Mg Tab PO 1 tablet Q12HR LAURA Administration Apixaban 2.5 mg 07/28/24 21:00 07/29/24 08:56 Apixaban 2.5 Mg Tablet PO 2.5 mg Q12HR LAURA Administration Ascorbic Acid 500 mg 07/28/24 09:00 07/29/24 08:56 Ascorbic Acid 500 Mg Tablet PO 500 mg DAILY LAURA Administration Dextrose 12.5 gm 07/26/24 19:51 Dextrose 50% 25 Gm/50 Ml Syringe IV PUSH PRN PRN Hypoglycemia Protocol Doxycycline Hyclate 100 mg 07/28/24 21:00 07/29/24 08:55 Doxycycline Hyclate 100 Mg Tablet PO 100 mg Q12HR LAURA Administration Famotidine 20 mg 07/28/24 09:00 07/29/24 08:56 Famotidine 20 Mg Tablet PO 20 mg DAILY LAURA Administration Furosemide 80 mg 07/28/24 09:00 07/29/24 08:57 Furosemide 80 Mg Tablet PO 80 mg DAILY LAURA Administration Gabapentin 200 mg 07/27/24 21:00 07/29/24 08:57 Gabapentin 100 Mg Capsule PO 200 mg Q12HR LAURA Administration Glucagon 1 mg 07/26/24 19:51 Glucagon For Inj 1 Mg Vial IM PRN PRN Hypoglycemia Protocol Glucose 15 gm 07/26/24 19:51 Glucose Oral Gel 15 Gm Of Glucse In 37.5 Gm Tube PO PRN PRN Hypoglycemia Protocol Dextrose 1,000 mls @ 100 mls/hr 07/26/24 19:51 Dextrose 5% 1,000 Ml IVPB PRN PRN Hypoglycemia Protocol Amiodarone HCl/Dextrose 360 mg in 200 mls @ 16.667 mls/hr 07/28/24 00:42 07/29/24 10:00 Nexterone 360 Mg/D5w 200 Ml IV CONT 0.5 mg/min .Q12H LAURA 16.67 mls/hr Infusion 0.5 MG/MIN Insulin Aspart 3 - 6 units 07/27/24 08:00 07/29/24 08:54 Insulin Aspart (*Bkc) 100 Units/Ml SUB-Q Not Given TIDWM LAURA Protocol Insulin Aspart 1 - 3 units 07/26/24 21:00 07/28/24 21:05 Insulin Aspart (*Bkc) 100 Units/Ml SUB-Q Not Given HS LAURA Protocol Latanoprost 1 drop 07/27/24 21:00 07/28/24 20:39 Latanoprost 0.005% Op Soln 2.5 Ml Btl EACH EYE 1 drop HS LAURA Administration Metoprolol Tartrate 25 mg 07/28/24 13:00 07/29/24 08:58 Metoprolol Tartrate 25 Mg Tablet PO 25 mg Q12HR LAURA Administration Pantoprazole Sodium 40 mg 07/27/24 21:00 07/29/24 08:56 Pantoprazole 40 Mg Tablet PO 40 mg Q12HR LAURA Administration Perflutren Lipid Microsphere 0 ml 07/27/24 16:56 Perflutren Lipid Microspheres 1.5 Ml Vial Diluted To 10 Ml Total Volume IV PUSH 07/30/24 16:57 ONCE PRN adequate visualization Protocol Ropinirole HCl 0.5 mg 07/27/24 21:00 07/28/24 20:39 Ropinirole Hcl 0.5 Mg Tablet PO 0.5 mg HS LAURA Administration Tamsulosin HCl 0.4 mg 07/28/24 09:00 07/29/24 08:57 Tamsulosin Hcl 0.4 Mg Capsule PO 0.4 mg DAILY LAURA Administration Vitamin D 5,000 units 07/28/24 09:00 07/29/24 08:57 Cholecalciferol 5,000 Units Tablet BY MOUTH 5,000 units DAILY LAURA Administration Radiology Results: ITS Impressions Chest CTA 07/26/24 18:40 IMPRESSION: No evidence of pulmonary embolism Bibasilar lower lobe and lingular infiltrate or atelectasis Chest X-Ray 07/27/24 17:08 IMPRESSION: Left lower lobe atelectasis versus pneumonia. Labs Labs: Laboratory Results - last 24 hr 07/28/24 07/28/24 07/28/24 09:30 11:25 16:41 WBC RBC Hgb Hct MCV MCH MCHC RDW Plt Count MPV Immature Gran % (Auto) Neut % (Auto) Lymph % (Auto) [place] % (Auto) Eos % (Auto) Baso % (Auto) Lymph # (Auto) [place] # (Auto) Eos # (Auto) Baso # (Auto) Abs Immat Gran (auto) Absolute Neuts (auto) Absolute Nucleated RBC Nucleated RBC % Sodium Potassium Chloride Carbon Dioxide Anion Gap BUN Creatinine Estim Creat Clear Calc Estimated GFR Glucose POC Capillary Glucose 172 H 160 H Calcium Total Bilirubin AST ALT Alkaline Phosphatase Total Protein Albumin TSH 2.740 07/28/24 07/29/24 07/29/24 20:59 05:46 07:46 WBC 13.0 H RBC 3.97 L Hgb 12.1 L Hct 37.8 L MCV 95.2 MCH 30.5 MCHC 32.0 RDW 12.6 Plt Count 221 MPV 10.7 H Immature Gran % (Auto) 0.8 H Neut % (Auto) 68.0 Lymph % (Auto) 18.3 [place] % (Auto) 9.8 H Eos % (Auto) 2.8 Baso % (Auto) 0.3 Lymph # (Auto) 2.38 [place] # (Auto) 1.3 H Eos # (Auto) 0.4 H Baso # (Auto) 0.0 Abs Immat Gran (auto) 0.10 H Absolute Neuts (auto) 8.9 H Absolute Nucleated RBC 0.000 Nucleated RBC % 0.0 Sodium 136 L Potassium 3.6 Chloride 101 Carbon Dioxide 28 Anion Gap 7 BUN 24 H Creatinine 1.85 H Estim Creat Clear Calc 30 Estimated GFR 35 L Glucose 129 H POC Capillary Glucose 145 H 121 H Calcium 8.6 Total Bilirubin 0.3 AST 33 ALT 35 Alkaline Phosphatase 81 Total Protein 7.0 Albumin 3.4 L TSH Quality VTE Prophylaxis VTE prophylaxis: pharmacologic ordered Hospitalist MIPS Advance Care Plan I have confirmed that the patient's Advanced Care Plan is present, code status is documented, or surrogate decision maker is listed in patient medical record.: Yes Medication Reconciliation I have utilized all available resources to obtain, update and review the patients current medications (includes all prescriptions, OTC, herbals, cannabis, and nutritional supplements).: Yes
--- NOTE | 2024-07-29 10:58 | PM.PNCARD ---
Progress Note: A&P Assessment and Plan (1) Atrial fibrillation with RVR: Code(s): I48.91 - Unspecified atrial fibrillation Status: Acute Plan 1. Atrial fibrillation with RVR. New diagnosis for the patient. Converted to sinus rhythm 07/28. TSH level normal. Echocardiogram with preserved LVEF. 2. Sepsis 3. Pneumonia 4. CKD 5. Hypertension 6. Hyperlipidemia 7. Diabetes mellitus PLAN: -Start PO Amiodarone 200mg once daily. -Continue Metoprolol 25mg BID. -Continue Eliquis 2.5mg BID given age and renal function. Cardiology will sign off at this time. Will arrange follow up in my office. Recommendations and plan discussed with Hospitalist. Subjective Date/time seen: 07/29/24 10:58 Interval history: Reason for visit: Atrial fibrillation with RVR HPI: We are consulted for atrial fibrillation. This is an 84 year old male with CKD, hypertension, hyperlipidemia, type 2 diabetes mellitus, COPD GERD, former smoker who is admitted with sepsis and pneumonia. Yesterday afternoon, he was noted to go into new atrial fibrillation with RVR. Transferred to IMU and started on IMU drip. Currently remains in AFIB with heart rates in the 110s. He does not feel any palpitations, chest pain. Initial EKG on admission showed sinus tachycardia with PACs. EKG from yesterday does confirm AFIB. This is a new diagnosis for the patient. Date of service 07/29: Converted to sinus rhythm yesterday evening and has remained in sinus. Review of Systems Cardiovascular: Cardiovascular: Reports as per HPI Exam Const: General: no acute distress HENMT: Mouth: Yes moist mucous membranes Eyes: General: appearance normal, both eyes and all related structures Sclera: sclerae normal Resp: Effort & Inspection: normal respiratory effort Cardio: Rate: regular rate Rhythm: regular rhythm Skin: General skin exam: normal color Neuro: Speech: normal speech Psych: Mental Status: mental status grossly normal Affect: normal affect Objective Data Vital Signs Vital Signs: Vital Signs - 24 hr 07/28/24 11:20 07/28/24 11:26 07/28/24 12:00 Temperature 36.3 C L Pulse Rate 109 H 109 H Respiratory Rate 20 Blood Pressure 110/72 110/72 Pulse Oximetry 94 Oxygen Delivery Room Air 07/28/24 12:00 07/28/24 12:57 07/28/24 13:09 Temperature Pulse Rate 109 H 115 H 115 H Respiratory Rate Blood Pressure 104/65 Pulse Oximetry Oxygen Delivery 07/28/24 13:10 07/28/24 14:00 07/28/24 14:00 Temperature 36.9 C Pulse Rate 115 H 118 H 107 H Respiratory Rate 20 Blood Pressure 104/65 100/63 Pulse Oximetry 96 Oxygen Delivery 07/28/24 14:33 07/28/24 15:29 07/28/24 16:00 Temperature 36.9 C Pulse Rate 118 H 107 H 112 H Respiratory Rate 20 Blood Pressure 100/63 102/67 Pulse Oximetry 96 Oxygen Delivery 07/28/24 16:05 07/28/24 18:00 07/28/24 18:00 Temperature Pulse Rate 107 H 102 H 98 Respiratory Rate Blood Pressure 102/67 113/74 Pulse Oximetry Oxygen Delivery 07/28/24 18:10 07/28/24 20:00 07/28/24 20:00 Temperature Pulse Rate 98 90 Respiratory Rate Blood Pressure 113/74 Pulse Oximetry Oxygen Delivery Room Air 07/28/24 20:00 07/28/24 20:22 07/28/24 20:39 Temperature 36.8 C Pulse Rate 93 100 90 Respiratory Rate 20 Blood Pressure 118/68 Pulse Oximetry 95 Oxygen Delivery 07/28/24 22:00 07/28/24 22:00 07/28/24 22:50 Temperature Pulse Rate 105 H 105 H Respiratory Rate Blood Pressure 117/58 L 117/58 L Pulse Oximetry 95 96 Oxygen Delivery Room Air 07/28/24 23:56 07/29/24 00:00 07/29/24 00:00 Temperature 37.0 C Pulse Rate 106 H 86 Respiratory Rate 18 Blood Pressure 101/62 Pulse Oximetry 92 Oxygen Delivery Room Air 07/29/24 00:00 07/29/24 01:10 07/29/24 01:35 Temperature Pulse Rate 80 80 80 Respiratory Rate Blood Pressure Pulse Oximetry Oxygen Delivery 07/29/24 02:00 07/29/24 02:00 07/29/24 03:59 Temperature Pulse Rate 83 71 Respiratory Rate Blood Pressure 116/60 Pulse Oximetry 96 Oxygen Delivery Room Air 07/29/24 04:00 07/29/24 04:00 07/29/24 04:18 Temperature 36.8 C Pulse Rate 76 75 71 Respiratory Rate 20 Blood Pressure 120/62 Pulse Oximetry 92 Oxygen Delivery 07/29/24 06:00 07/29/24 06:17 07/29/24 07:51 Temperature 36.8 C Pulse Rate 80 71 84 Respiratory Rate 20 Blood Pressure 111/53 L 121/62 Pulse Oximetry 92 96 Oxygen Delivery 07/29/24 08:00 07/29/24 08:58 07/29/24 10:00 Temperature Pulse Rate 84 85 78 Respiratory Rate Blood Pressure 121/62 123/72 Pulse Oximetry Oxygen Delivery 07/29/24 10:00 Temperature 36.4 C L Pulse Rate 78 Respiratory Rate 20 Blood Pressure 123/72 Pulse Oximetry 94 Oxygen Delivery Intake/Output Intake/Output: Intake & Output 07/26/24 07/27/24 07/28/24 07/29/24 23:59 23:59 23:59 23:59 Intake Total 1050 1224.5 1405.1 1432.8 Output Total 300 1180 2450 650 Balance 750 44.5 -1044.9 782.8 Meds/Results Medications: Active Medications Generic Name Dose Route Start Last Admin Trade Name Freq PRN Reason Stop Dose Admin Hydrocodone Bitart/Acetaminophen 1 tab 07/26/24 23:10 07/27/24 07:54 Hydrocodone/Acetaminophen (*Crx) 5-325 Mg Tablet PO 1 tab Q4H PRN Administration Pain Rated 4-6 Albuterol/Ipratropium 3 ml 07/28/24 11:50 Ipratropium 0.5 Mg/Albuterol Sulfate 2.5 Mg Ampul.Neb 3 Ml INHALATION Q6HRT PRN wheezing Amiodarone HCl 200 mg 07/29/24 11:00 Amiodarone Hcl 200 Mg Tablet PO DAILY@0800 LAURA Amoxicillin/Clavulanate Potassium 1 tablet 07/28/24 21:00 07/29/24 08:58 Amoxicillin/Clavulanate K 875-125 Mg Tab PO 1 tablet Q12HR LAURA Administration Apixaban 2.5 mg 07/28/24 21:00 07/29/24 08:56 Apixaban 2.5 Mg Tablet PO 2.5 mg Q12HR LAURA Administration Ascorbic Acid 500 mg 07/28/24 09:00 07/29/24 08:56 Ascorbic Acid 500 Mg Tablet PO 500 mg DAILY LAURA Administration Dextrose 12.5 gm 07/26/24 19:51 Dextrose 50% 25 Gm/50 Ml Syringe IV PUSH PRN PRN Hypoglycemia Protocol Doxycycline Hyclate 100 mg 07/28/24 21:00 07/29/24 08:55 Doxycycline Hyclate 100 Mg Tablet PO 100 mg Q12HR LAURA Administration Famotidine 20 mg 07/28/24 09:00 07/29/24 08:56 Famotidine 20 Mg Tablet PO 20 mg DAILY LAURA Administration Furosemide 80 mg 07/28/24 09:00 07/29/24 08:57 Furosemide 80 Mg Tablet PO 80 mg DAILY LAURA Administration Gabapentin 200 mg 07/27/24 21:00 07/29/24 08:57 Gabapentin 100 Mg Capsule PO 200 mg Q12HR LAURA Administration Glucagon 1 mg 07/26/24 19:51 Glucagon For Inj 1 Mg Vial IM PRN PRN Hypoglycemia Protocol Glucose 15 gm 07/26/24 19:51 Glucose Oral Gel 15 Gm Of Glucse In 37.5 Gm Tube PO PRN PRN Hypoglycemia Protocol Dextrose 1,000 mls @ 100 mls/hr 07/26/24 19:51 Dextrose 5% 1,000 Ml IVPB PRN PRN Hypoglycemia Protocol Insulin Aspart 3 - 6 units 07/27/24 08:00 07/29/24 08:54 Insulin Aspart (*Bkc) 100 Units/Ml SUB-Q Not Given TIDWM LAURA Protocol Insulin Aspart 1 - 3 units 07/26/24 21:00 07/28/24 21:05 Insulin Aspart (*Bkc) 100 Units/Ml SUB-Q Not Given HS LAURA Protocol Latanoprost 1 drop 07/27/24 21:00 07/28/24 20:39 Latanoprost 0.005% Op Soln 2.5 Ml Btl EACH EYE 1 drop HS LAURA Administration Metoprolol Tartrate 25 mg 07/28/24 13:00 07/29/24 08:58 Metoprolol Tartrate 25 Mg Tablet PO 25 mg Q12HR LAURA Administration Pantoprazole Sodium 40 mg 07/27/24 21:00 07/29/24 08:56 Pantoprazole 40 Mg Tablet PO 40 mg Q12HR LAURA Administration Perflutren Lipid Microsphere 0 ml 07/27/24 16:56 Perflutren Lipid Microspheres 1.5 Ml Vial Diluted To 10 Ml Total Volume IV PUSH 07/30/24 16:57 ONCE PRN adequate visualization Protocol Ropinirole HCl 0.5 mg 07/27/24 21:00 07/28/24 20:39 Ropinirole Hcl 0.5 Mg Tablet PO 0.5 mg HS LAURA Administration Tamsulosin HCl 0.4 mg 07/28/24 09:00 07/29/24 08:57 Tamsulosin Hcl 0.4 Mg Capsule PO 0.4 mg DAILY LAURA Administration Vitamin D 5,000 units 07/28/24 09:00 07/29/24 08:57 Cholecalciferol 5,000 Units Tablet BY MOUTH 5,000 units DAILY LAURA Administration Radiology Results: ITS Impressions Chest CTA 07/26/24 18:40 IMPRESSION: No evidence of pulmonary embolism Bibasilar lower lobe and lingular infiltrate or atelectasis Chest X-Ray 07/27/24 17:08 IMPRESSION: Left lower lobe atelectasis versus pneumonia. Labs Labs: Laboratory Results - last 24 hr 07/28/24 07/28/24 07/28/24 09:30 11:25 16:41 WBC RBC Hgb Hct MCV MCH MCHC RDW Plt Count MPV Immature Gran % (Auto) Neut % (Auto) Lymph % (Auto) [place] % (Auto) Eos % (Auto) Baso % (Auto) Lymph # (Auto) [place] # (Auto) Eos # (Auto) Baso # (Auto) Abs Immat Gran (auto) Absolute Neuts (auto) Absolute Nucleated RBC Nucleated RBC % Sodium Potassium Chloride Carbon Dioxide Anion Gap BUN Creatinine Estim Creat Clear Calc Estimated GFR Glucose POC Capillary Glucose 172 H 160 H Calcium Total Bilirubin AST ALT Alkaline Phosphatase Total Protein Albumin TSH 2.740 07/28/24 07/29/24 07/29/24 20:59 05:46 07:46 WBC 13.0 H RBC 3.97 L Hgb 12.1 L Hct 37.8 L MCV 95.2 MCH 30.5 MCHC 32.0 RDW 12.6 Plt Count 221 MPV 10.7 H Immature Gran % (Auto) 0.8 H Neut % (Auto) 68.0 Lymph % (Auto) 18.3 [place] % (Auto) 9.8 H Eos % (Auto) 2.8 Baso % (Auto) 0.3 Lymph # (Auto) 2.38 [place] # (Auto) 1.3 H Eos # (Auto) 0.4 H Baso # (Auto) 0.0 Abs Immat Gran (auto) 0.10 H Absolute Neuts (auto) 8.9 H Absolute Nucleated RBC 0.000 Nucleated RBC % 0.0 Sodium 136 L Potassium 3.6 Chloride 101 Carbon Dioxide 28 Anion Gap 7 BUN 24 H Creatinine 1.85 H Estim Creat Clear Calc 30 Estimated GFR 35 L Glucose 129 H POC Capillary Glucose 145 H 121 H Calcium 8.6 Total Bilirubin 0.3 AST 33 ALT 35 Alkaline Phosphatase 81 Total Protein 7.0 Albumin 3.4 L TSH
[2024-07-29] MEDS: AMIODARONE HCL 200 MG TABLET PO (11:34)
[2024-07-29 12:03] LABS: Glucose Point of Care 159 mg/dl (65-105)
--- NOTE | 2024-07-29 15:43 | PC.NURSE ---
Pt hand off report given to MARISOL Arce. Pt transferred to room 340 at 1534.
[2024-07-29 16:47] LABS: Glucose Point of Care 126 mg/dl (65-105)
[2024-07-29] MEDS: LATANOPROST 0.005% OP SOLN 2.5 ML BTL 1 DROP EACH EYE (20:18)
[2024-07-29] MEDS: rOPINIRole HCL 0.5 MG TABLET PO (20:18)
[2024-07-29 20:45] LABS: Glucose Point of Care 171 mg/dl (65-105)
[2024-07-30 04:19] VITALS: BP 118/59; PULSE 63; RESP 20; TEMP 36.1; O2SAT 93
[2024-07-30 05:19] LABS: Basophils Absolute Auto 0.1 K/mm3 (0.0-0.1); Basophils Percent Auto 0.6 % (0.2-1.2); Eosinophils Absolute Auto 0.5 K/mm3 (0-0.3); Eosinophils Percent Auto 4.6 % (0-4.4); Hemoglobin 11.8 g/dL (14.0-18.0); Immature Granulocyte Absolute 0.08 K/mm3 (0.00-0.031); Immature Granulocyte Percent A 0.7 % (0-0.5); Lymphocytes Absolute Auto 2.33 K/mm3 (0.9-3.2); Lymphocytes Percent Auto 20.4 % (18.3-44.2); Mean Corpuscular HGB Conc 31.9 g/dl (32-36); Mean Corpuscular Hemoglobin 30.3 pg (26-34); Mean Corpuscular Volume 94.9 fl (80-100); Mean Platelet Volume 10.8 fl (7.4-10.4); Monocytes Absolute Auto 1.1 K/mm3 (0.1-0.6); Monocytes Percent Auto 9.5 % (2.6-8.5); Neutrophils Absolute Auto 7.3 K/mm3 (1.3-6.7); Neutrophils Percent Auto 64.2 % (45.5-73.1); Platelet Count Result 236 k/mm3 (150-375); Red Cell Distribution Width 12.6 % (11.5-14.5); White Blood Count 11.4 K/mm3 (4.5-10.0)
[2024-07-30 05:33] LABS: Alanine Aminotransferase 53 U/L (6-50); Albumin Level 3.5 g/dL (3.5-5.1); Alkaline Phosphatase 85 U/L (38-126); Anion Gap 11 mmol/L (4-12); Aspartate Amino Transferase 39 U/L (17-59); Bilirubin,Total 0.9 mg/dL (0.2-1.3); Blood Urea Nitrogen 27 mg/dL (9-20); Calcium 8.6 mg/dL (8.4-10.2); Carbon Dioxide 29 mmol/L (22-30); Chloride 97 mmol/L (98-107); Estimated CRCL calculation 27 ml/min; Estimated Glomerular Filt Rate 30; Glucose 123 mg/dL (65-110); Potassium 3.9 mmol/L (3.4-5.0); Sodium 137 mmol/L (137-145)
[2024-07-30 08:36] LABS: Glucose Point of Care 115 mg/dl (65-105)
[2024-07-30] MEDS: DOXYCYCLINE HYCLATE 100 MG TABLET PO ×2 (08:47→20:04)
[2024-07-30] MEDS: AMOXICILLIN/CLAVULANATE K 875-125 MG TAB 1 TABLET PO ×2 (08:47→20:03)
[2024-07-30] MEDS: PANTOPRAZOLE 40 MG TABLET PO ×2 (08:47→20:03)
[2024-07-30] MEDS: CHOLECALCIFEROL 5,000 UNITS TABLET 5000 UNITS BY MOUTH (08:47)
[2024-07-30] MEDS: FUROSEMIDE 80 MG TABLET PO (08:47)
[2024-07-30] MEDS: ASCORBIC ACID 500 MG TABLET PO (08:47)
[2024-07-30] MEDS: FAMOTIDINE 20 MG TABLET PO (08:47)
[2024-07-30] MEDS: APIXABAN 2.5 MG TABLET PO ×2 (08:47→20:03)
[2024-07-30] MEDS: TAMSULOSIN HCL 0.4 MG CAPSULE PO (08:47)
[2024-07-30] MEDS: GABAPENTIN 100 MG CAPSULE 200 MG PO ×2 (08:47→20:03)
[2024-07-30 08:48] VITALS: PULSE 62
[2024-07-30] MEDS: METOPROLOL TARTRATE 25 MG TABLET PO ×2 (08:48→20:03)
[2024-07-30] MEDS: AMIODARONE HCL 200 MG TABLET PO (08:48)
[2024-07-30] MEDS: SODIUM CHLORIDE 0.9% IV 1,000 ML 70 ML IV CONT (10:35)
[2024-07-30 11:50] LABS: Glucose Point of Care 171 mg/dl (65-105)
[2024-07-30 14:00] VITALS: BP 124/58; PULSE 72; RESP 19; TEMP 36.3; O2SAT 95
--- NOTE | 2024-07-30 15:38 | P.PNIM_ITS ---
Progress Note: A&P Assessment and Plan (1) Sepsis: Code(s): A41.9 - Sepsis, unspecified organism Status: Acute Assessment and Plan: * Patient initially meeting sepsis criteria with heart rate of 128, tachypneic 24, white blood cell count 17.6, lactic acid 4.0> 2.1> 1.3, chest x-ray showing pneumonia * Blood cultures were obtained and showing no growth to date on preliminary read * Continue Rocephin and Azithromycin * MRSA negative * Patient was given 1L NS with improvement in his HR, RR, and lactic acid level came back down to baseline 07/28 * Blood cultures showing no growth to date on preliminary read. * Urine culture is negative * Will change to Augmentin and Doxycycline (2) Pneumonia: Code(s): J18.9 - Pneumonia, unspecified organism Status: Acute Assessment and Plan: * Chest x-ray showing pneumonia * Chest CTA showing pneumonia * Continue Rocephin and azithromycin * MRSA negative * Blood culture showing no growth to date on preliminary read * Currently on room air, keep O2 sat greater than 92% * Continue DuoNeb * Transitioned to Augmentin and Doxycycline oral * Blood cultures showing no growth. * Duonebs PRN (3) Atrial fibrillation with RVR: Code(s): I48.91 - Unspecified atrial fibrillation Status: Acute Assessment and Plan: Call by bedside nurse yesterday that patient's heart rate went up to 140. We got EKG which confirmed that the patient was in AFib RVR which looks like new onset. Patient was transferred to IMU for further monitoring * Currently AFib with a rate of 90-105 * Still on Amiodarone infusion at 0.5 * Cardiology consulted * Patient started on Eliquis * Echocardiogram ordered * Continuous telemetry monitoring * Continue IMU status for now Amiodarone drip has stopped and started Amiodarone 200 mg PO QD and Metoprolol 25 mg PO BID. (4) CKD (chronic kidney disease), stage III: Code(s): N18.3 - Chronic kidney disease, stage 3 (moderate) Status: Acute Assessment and Plan: * Creatinine 1.81, EGFR 36 * Appears to be at patient's baseline, over the past year he has been ranging 1.60-2.00 * Continue to trend * Hold Lasix 80 mg p.o. q.d. * Creatinine increased from 1.7 to 2.11 * Started gentle fluid resuscitation (5) Hyperlipidemia: Qualifiers: Hyperlipidemia type: other hyperlipidemia Qualified Code(s): E78.49 - Other hyperlipidemia Code(s): E78.5 - Hyperlipidemia, unspecified Status: Acute Assessment and Plan: * Continue aspirin (6) Essential hypertension: Code(s): I10 - Essential (primary) hypertension Status: Acute Assessment and Plan: * Blood pressure ranging 108/66 to 112/70 * Patient not currently on any blood pressure medication * Continue to trend (7) Type 2 diabetes mellitus: Qualifiers: Diabetes mellitus group home insulin use: without group home use Diabetes mellitus complication status: with neurologic complications Diabetes mellitus complication detail: with unspecified neuropathy Qualified Code(s): E11.40 - Type 2 diabetes mellitus with diabetic neuropathy, unspecified Code(s): E11.9 - Type 2 diabetes mellitus without complications Status: Acute Assessment and Plan: * Blood sugars ranging 132-175 * Hgb A1C 6.9 on 04/15/2024 * Accu checks AC/HS * Moderate dose SSI ordered * Hold glipizide * hypoglycemic protocol in place * Diabetic diet ordered (8) Gastroesophageal reflux disease: Code(s): K21.9 - Gastro-esophageal reflux disease without esophagitis Status: Acute Assessment and Plan: * Continue Pepcid and Protonix (9) COPD (chronic obstructive pulmonary disease): Code(s): J44.9 - Chronic obstructive pulmonary disease, unspecified Status: Acute Assessment and Plan: * Continue DuoNebs PRN Subjective Date/time seen: 07/30/24 15:38 Interval history: Patient creatinine has been increased. Reviewed echocardiogram which shows left ventricular ejection fraction 50-55%. Will hold Lasix. Will do gentle fluid resuscitation. Discussed with her daughter and answered all her questions. Review of Systems Review of Systems: Other systems reviewed and negative except as noted in history above. All systems reviewed & are unremarkable except as noted in HPI and below Exam Narrative: General: In no acute distress, well nourished Cardiac: Normal S1 and S2. No murmur, gallops or friction rubs, peripheral pulses intact. Respiratory: Lungs clear, no adventitious lung sounds, currently on room air. Denies cough Gastrointestinal: soft, non-distended, non-tender, normoactive bowel sounds. : voiding without difficulty. Neuro: Alert and oriented x3 Objective Data Vital Signs Vital Signs: Vital Signs - 24 hr 07/29/24 16:18 07/29/24 20:14 07/29/24 20:18 Temperature 96.7 F L 97.6 F Pulse Rate 81 63 66 Respiratory Rate 18 20 Blood Pressure 112/69 115/70 Pulse Oximetry 93 Oxygen Delivery 07/29/24 21:40 07/30/24 04:19 07/30/24 08:00 Temperature 96.8 F L 97.0 F L Pulse Rate 72 63 Respiratory Rate 20 20 Blood Pressure 154/86 H 118/59 L Pulse Oximetry 95 93 Oxygen Delivery Room Air 07/30/24 08:48 07/30/24 08:48 07/30/24 14:00 Temperature 97.3 F L Pulse Rate 62 62 72 Respiratory Rate 19 Blood Pressure 124/58 L Pulse Oximetry 95 Oxygen Delivery Intake/Output Intake/Output: Intake & Output 07/27/24 07/28/24 07/29/24 07/30/24 23:59 23:59 23:59 23:59 Intake Total 1224.5 1405.1 2180.0 1347 Output Total 1180 2450 1950 360 Balance 44.5 -1044.9 230.0 987 Meds/Results Medications: Active Medications Generic Name Dose Route Start Last Admin Trade Name Freq PRN Reason Stop Dose Admin Hydrocodone Bitart/Acetaminophen 1 tab 07/26/24 23:10 07/27/24 07:54 Hydrocodone/Acetaminophen (*Crx) 5-325 Mg Tablet PO 1 tab Q4H PRN Administration Pain Rated 4-6 Albuterol/Ipratropium 3 ml 07/28/24 11:50 Ipratropium 0.5 Mg/Albuterol Sulfate 2.5 Mg Ampul.Neb 3 Ml INHALATION Q6HRT PRN wheezing Amiodarone HCl 200 mg 07/29/24 11:00 07/30/24 08:48 Amiodarone Hcl 200 Mg Tablet PO 200 mg DAILY@0800 LAURA Administration Amoxicillin/Clavulanate Potassium 1 tablet 07/28/24 21:00 07/30/24 08:47 Amoxicillin/Clavulanate K 875-125 Mg Tab PO 1 tablet Q12HR LAURA Administration Apixaban 2.5 mg 07/28/24 21:00 07/30/24 08:47 Apixaban 2.5 Mg Tablet PO 2.5 mg Q12HR LAURA Administration Ascorbic Acid 500 mg 07/28/24 09:00 07/30/24 08:47 Ascorbic Acid 500 Mg Tablet PO 500 mg DAILY LAURA Administration Dextrose 12.5 gm 07/26/24 19:51 Dextrose 50% 25 Gm/50 Ml Syringe IV PUSH PRN PRN Hypoglycemia Protocol Doxycycline Hyclate 100 mg 07/28/24 21:00 07/30/24 08:47 Doxycycline Hyclate 100 Mg Tablet PO 100 mg Q12HR LAURA Administration Famotidine 20 mg 07/28/24 09:00 07/30/24 08:47 Famotidine 20 Mg Tablet PO 20 mg DAILY LAURA Administration Furosemide 80 mg 07/28/24 09:00 07/30/24 08:47 Furosemide 80 Mg Tablet PO 80 mg DAILY LAURA Administration Gabapentin 200 mg 07/27/24 21:00 07/30/24 08:47 Gabapentin 100 Mg Capsule PO 200 mg Q12HR LAURA Administration Glucagon 1 mg 07/26/24 19:51 Glucagon For Inj 1 Mg Vial IM PRN PRN Hypoglycemia Protocol Glucose 15 gm 07/26/24 19:51 Glucose Oral Gel 15 Gm Of Glucse In 37.5 Gm Tube PO PRN PRN Hypoglycemia Protocol Dextrose 1,000 mls @ 100 mls/hr 07/26/24 19:51 Dextrose 5% 1,000 Ml IVPB PRN PRN Hypoglycemia Protocol Sodium Chloride 1,000 mls @ 70 mls/hr 07/30/24 09:15 07/30/24 10:35 Normal Saline Iv IV CONT 70 mls/hr .[id number] LAURA Administration Insulin Aspart 3 - 6 units 07/27/24 08:00 07/30/24 14:19 Insulin Aspart (*Bkc) 100 Units/Ml SUB-Q Not Given TIDWM LAURA Protocol Insulin Aspart 1 - 3 units 07/26/24 21:00 07/29/24 20:18 Insulin Aspart (*Bkc) 100 Units/Ml SUB-Q Not Given HS LAURA Protocol Latanoprost 1 drop 07/27/24 21:00 07/29/24 20:18 Latanoprost 0.005% Op Soln 2.5 Ml Btl EACH EYE 1 drop HS LAURA Administration Metoprolol Tartrate 25 mg 07/28/24 13:00 07/30/24 08:48 Metoprolol Tartrate 25 Mg Tablet PO 25 mg Q12HR LAURA Administration Pantoprazole Sodium 40 mg 07/27/24 21:00 07/30/24 08:47 Pantoprazole 40 Mg Tablet PO 40 mg Q12HR LAURA Administration Perflutren Lipid Microsphere 0 ml 07/27/24 16:56 Perflutren Lipid Microspheres 1.5 Ml Vial Diluted To 10 Ml Total Volume IV PUSH 07/30/24 16:57 ONCE PRN adequate visualization Protocol Ropinirole HCl 0.5 mg 07/27/24 21:00 07/29/24 20:18 Ropinirole Hcl 0.5 Mg Tablet PO 0.5 mg HS LAURA Administration Tamsulosin HCl 0.4 mg 07/28/24 09:00 07/30/24 08:47 Tamsulosin Hcl 0.4 Mg Capsule PO 0.4 mg DAILY LAURA Administration Vitamin D 5,000 units 07/28/24 09:00 07/30/24 08:47 Cholecalciferol 5,000 Units Tablet BY MOUTH 5,000 units DAILY LAURA Administration Radiology Results: ITS Impressions Chest CTA 07/26/24 18:40 IMPRESSION: No evidence of pulmonary embolism Bibasilar lower lobe and lingular infiltrate or atelectasis Chest X-Ray 07/29/24 13:09 IMPRESSION: 1. Mild elevation of the left hemidiaphragm with left basilar opacities which could represent associated atelectasis and/or pneumonia. Labs Labs: Laboratory Results - last 24 hr 07/29/24 07/29/24 07/30/24 16:38 20:17 04:53 WBC 11.4 H RBC 3.90 L Hgb 11.8 L Hct 37.0 L MCV 94.9 MCH 30.3 MCHC 31.9 L RDW 12.6 Plt Count 236 MPV 10.8 H Immature Gran % (Auto) 0.7 H Neut % (Auto) 64.2 Lymph % (Auto) 20.4 [place] % (Auto) 9.5 H Eos % (Auto) 4.6 H Baso % (Auto) 0.6 Lymph # (Auto) 2.33 [place] # (Auto) 1.1 H Eos # (Auto) 0.5 H Baso # (Auto) 0.1 Abs Immat Gran (auto) 0.08 H Absolute Neuts (auto) 7.3 H Absolute Nucleated RBC 0.000 Nucleated RBC % 0.0 Sodium 137 Potassium 3.9 Chloride 97 L Carbon Dioxide 29 Anion Gap 11 BUN 27 H Creatinine 2.11 H Estim Creat Clear Calc 27 Estimated GFR 30 L Glucose 123 H POC Capillary Glucose 126 H 171 H Calcium 8.6 Total Bilirubin 0.9 AST 39 ALT 53 H Alkaline Phosphatase 85 Total Protein 7.0 Albumin 3.5 07/30/24 07/30/24 08:32 11:48 WBC RBC Hgb Hct MCV MCH MCHC RDW Plt Count MPV Immature Gran % (Auto) Neut % (Auto) Lymph % (Auto) [place] % (Auto) Eos % (Auto) Baso % (Auto) Lymph # (Auto) [place] # (Auto) Eos # (Auto) Baso # (Auto) Abs Immat Gran (auto) Absolute Neuts (auto) Absolute Nucleated RBC Nucleated RBC % Sodium Potassium Chloride Carbon Dioxide Anion Gap BUN Creatinine Estim Creat Clear Calc Estimated GFR Glucose POC Capillary Glucose 115 H 171 H Calcium Total Bilirubin AST ALT Alkaline Phosphatase Total Protein Albumin Quality VTE Prophylaxis VTE prophylaxis: pharmacologic ordered Hospitalist [facility] Advance Care Plan I have confirmed that the patient's Advanced Care Plan is present, code status is documented, or surrogate decision maker is listed in patient medical record.: Yes Medication Reconciliation I have utilized all available resources to obtain, update and review the patients current medications (includes all prescriptions, OTC, herbals, cannabis, and nutritional supplements).: Yes
[2024-07-30 16:51] LABS: Glucose Point of Care 189 mg/dl (65-105)
[2024-07-30 19:26] VITALS: BP 119/78; PULSE 80; RESP 20; TEMP 36.5; O2SAT 94
[2024-07-30 20:03] VITALS: PULSE 80
[2024-07-30] MEDS: LATANOPROST 0.005% OP SOLN 2.5 ML BTL 1 DROP EACH EYE (20:03)
[2024-07-30] MEDS: rOPINIRole HCL 0.5 MG TABLET PO (20:03)
[2024-07-30 21:15] LABS: Glucose Point of Care 137 mg/dl (65-105)
[2024-07-30 21:50] VITALS: O2SAT 94
[2024-07-31] MEDS: SODIUM CHLORIDE 0.9% IV 1,000 ML 70 ML IV CONT (02:36)
[2024-07-31 05:29] VITALS: BP 120/67; PULSE 74; RESP 20; TEMP 36.5; O2SAT 91
[2024-07-31 05:46] LABS: Basophils Absolute Auto 0.1 K/mm3 (0.0-0.1); Basophils Percent Auto 0.5 % (0.2-1.2); Eosinophils Absolute Auto 0.6 K/mm3 (0-0.3); Hematocrit 36.8 % (42.0-52.0); Hemoglobin 12.1 g/dL (14.0-18.0); Immature Granulocyte Absolute 0.11 K/mm3 (0.00-0.031); Immature Granulocyte Percent A 0.9 % (0-0.5); Lymphocytes Absolute Auto 2.16 K/mm3 (0.9-3.2); Lymphocytes Percent Auto 18.4 % (18.3-44.2); Mean Corpuscular HGB Conc 32.9 g/dl (32-36); Mean Corpuscular Hemoglobin 30.6 pg (26-34); Mean Corpuscular Volume 93.2 fl (80-100); Mean Platelet Volume 10.7 fl (7.4-10.4); Monocytes Absolute Auto 1.1 K/mm3 (0.1-0.6); Monocytes Percent Auto 9.2 % (2.6-8.5); Neutrophils Absolute Auto 7.8 K/mm3 (1.3-6.7); Platelet Count Result 257 k/mm3 (150-375); Red Blood Count 3.95 M/mm3 (4.6-6.20); Red Cell Distribution Width 12.6 % (11.5-14.5); White Blood Count 11.8 K/mm3 (4.5-10.0)
[2024-07-31 06:05] LABS: Alanine Aminotransferase 58 U/L (6-50); Albumin Level 3.6 g/dL (3.5-5.1); Alkaline Phosphatase 85 U/L (38-126); Anion Gap 10 mmol/L (4-12); Aspartate Amino Transferase 36 U/L (17-59); Bilirubin,Total 0.8 mg/dL (0.2-1.3); Blood Urea Nitrogen 32 mg/dL (9-20); Calcium 8.7 mg/dL (8.4-10.2); Carbon Dioxide 28 mmol/L (22-30); Chloride 99 mmol/L (98-107); Estimated CRCL calculation 28 ml/min; Estimated Glomerular Filt Rate 32; Glucose 138 mg/dL (65-110); Potassium 3.4 mmol/L (3.4-5.0); Sodium 137 mmol/L (137-145)
[2024-07-31 08:46] LABS: Glucose Point of Care 137 mg/dl (65-105)
[2024-07-31] MEDS: GABAPENTIN 100 MG CAPSULE 200 MG PO ×2 (08:52→20:34)
[2024-07-31] MEDS: TAMSULOSIN HCL 0.4 MG CAPSULE PO (08:54)
[2024-07-31] MEDS: CHOLECALCIFEROL 5,000 UNITS TABLET 5000 UNITS BY MOUTH (08:54)
[2024-07-31] MEDS: APIXABAN 2.5 MG TABLET PO ×2 (08:54→20:34)
[2024-07-31] MEDS: DOXYCYCLINE HYCLATE 100 MG TABLET PO ×2 (08:54→20:34)
[2024-07-31] MEDS: FAMOTIDINE 20 MG TABLET PO (08:54)
[2024-07-31] MEDS: PANTOPRAZOLE 40 MG TABLET PO ×2 (08:55→20:35)
[2024-07-31] MEDS: ASCORBIC ACID 500 MG TABLET PO (08:55)
[2024-07-31] MEDS: AMOXICILLIN/CLAVULANATE K 875-125 MG TAB 1 TABLET PO ×2 (08:55→20:34)
[2024-07-31 08:57] VITALS: PULSE 66
[2024-07-31] MEDS: AMIODARONE HCL 200 MG TABLET PO (08:57)
[2024-07-31] MEDS: METOPROLOL TARTRATE 25 MG TABLET PO ×2 (08:57→20:35)
[2024-07-31 11:35] LABS: Glucose Point of Care 144 mg/dl (65-105)
[2024-07-31 14:00] VITALS: BP 142/70; PULSE 72; RESP 20; TEMP 36.6; O2SAT 99
--- NOTE | 2024-07-31 16:32 | P.PNIM_ITS ---
Progress Note: A&P Assessment and Plan (1) Sepsis: Code(s): A41.9 - Sepsis, unspecified organism Status: Acute Assessment and Plan: * Patient initially meeting sepsis criteria with heart rate of 128, tachypneic 24, white blood cell count 17.6, lactic acid 4.0> 2.1> 1.3, chest x-ray showing pneumonia * Blood cultures were obtained and showing no growth to date on preliminary read * Continue Rocephin and Azithromycin * MRSA negative * Patient was given 1L NS with improvement in his HR, RR, and lactic acid level came back down to baseline 07/28 * Blood cultures showing no growth to date on preliminary read. * Urine culture is negative * Will change to Augmentin and Doxycycline (2) Pneumonia: Code(s): J18.9 - Pneumonia, unspecified organism Status: Acute Assessment and Plan: * Chest x-ray showing pneumonia * Chest CTA showing pneumonia * Continue Rocephin and azithromycin * MRSA negative * Blood culture showing no growth to date on preliminary read * Currently on room air, keep O2 sat greater than 92% * Continue DuoNeb * Transitioned to Augmentin and Doxycycline oral * Blood cultures showing no growth. * Duonebs PRN (3) Atrial fibrillation with RVR: Code(s): I48.91 - Unspecified atrial fibrillation Status: Acute Assessment and Plan: Call by bedside nurse yesterday that patient's heart rate went up to 140. We got EKG which confirmed that the patient was in AFib RVR which looks like new onset. Patient was transferred to IMU for further monitoring * Currently AFib with a rate of 90-105 * Still on Amiodarone infusion at 0.5 * Cardiology consulted * Patient started on Eliquis * Echocardiogram ordered * Continuous telemetry monitoring * Continue IMU status for now Amiodarone drip has stopped and started Amiodarone 200 mg PO QD and Metoprolol 25 mg PO BID. (4) CKD (chronic kidney disease), stage III: Code(s): N18.3 - Chronic kidney disease, stage 3 (moderate) Status: Acute Assessment and Plan: * Creatinine 1.81, EGFR 36 * Appears to be at patient's baseline, over the past year he has been ranging 1.60-2.00 * Continue to trend * Hold Lasix 80 mg p.o. q.d. * Will discharge with Lasix 40 mg PO QD. * Started gentle fluid resuscitation (5) Hyperlipidemia: Qualifiers: Hyperlipidemia type: other hyperlipidemia Qualified Code(s): E78.49 - Other hyperlipidemia Code(s): E78.5 - Hyperlipidemia, unspecified Status: Acute Assessment and Plan: * Continue aspirin (6) Essential hypertension: Code(s): I10 - Essential (primary) hypertension Status: Acute Assessment and Plan: * Blood pressure ranging 108/66 to 112/70 * Patient not currently on any blood pressure medication * Continue to trend (7) Type 2 diabetes mellitus: Qualifiers: Diabetes mellitus nursing home insulin use: without remote computer terminal operator use Diabetes mellitus complication status: with neurologic complications Diabetes mellitus complication detail: with unspecified neuropathy Qualified Code(s): E11.40 - Type 2 diabetes mellitus with diabetic neuropathy, unspecified Code(s): E11.9 - Type 2 diabetes mellitus without complications Status: Acute Assessment and Plan: * Blood sugars ranging 132-175 * Hgb A1C 6.9 on 04/15/2024 * Accu checks AC/HS * Moderate dose SSI ordered * Hold glipizide * hypoglycemic protocol in place * Diabetic diet ordered (8) Gastroesophageal reflux disease: Code(s): K21.9 - Gastro-esophageal reflux disease without esophagitis Status: Acute Assessment and Plan: * Continue Pepcid and Protonix (9) COPD (chronic obstructive pulmonary disease): Code(s): J44.9 - Chronic obstructive pulmonary disease, unspecified Status: Acute Assessment and Plan: * Continue DuoNebs PRN Subjective Date/time seen: 07/31/24 16:32 Interval history: Holding discharge due fall. Patient denies head trauma. He fell on right side. Xray of hip,femur,tibia and fibula and CT head is negative. Review of Systems Review of Systems: Other systems reviewed and negative except as noted in history above. All systems reviewed & are unremarkable except as noted in HPI and below Exam Narrative: General: In no acute distress, well nourished Cardiac: Normal S1 and S2. No murmur, gallops or friction rubs, peripheral pulses intact. Respiratory: Lungs clear, no adventitious lung sounds, currently on room air. Denies cough Gastrointestinal: soft, non-distended, non-tender, normoactive bowel sounds. : voiding without difficulty. Neuro: Alert and oriented x3 Objective Data Vital Signs Vital Signs: Vital Signs - 24 hr 07/30/24 19:26 07/30/24 20:00 07/30/24 20:03 Temperature 97.7 F Pulse Rate 80 80 Respiratory Rate 20 Blood Pressure 119/78 Pulse Oximetry 94 Oxygen Delivery Room Air 07/30/24 21:50 07/31/24 05:29 07/31/24 08:00 Temperature 97.7 F Pulse Rate 74 Respiratory Rate 20 Blood Pressure 120/67 Pulse Oximetry 94 91 Oxygen Delivery Room Air Room Air 07/31/24 08:57 07/31/24 08:57 07/31/24 14:00 Temperature 97.8 F Pulse Rate 66 66 72 Respiratory Rate 20 Blood Pressure 142/70 H Pulse Oximetry 99 Oxygen Delivery Intake/Output Intake/Output: Intake & Output 07/28/24 07/29/24 07/30/24 07/31/24 23:59 23:59 23:59 23:59 Intake Total 1405.1 2180.0 1407 1870 Output Total 2450 1950 785 975 Balance -1044.9 230.0 622 895 Meds/Results Medications: Active Medications Generic Name Dose Route Start Last Admin Trade Name Freq PRN Reason Stop Dose Admin Hydrocodone Bitart/Acetaminophen 1 tab 07/26/24 23:10 07/27/24 07:54 Hydrocodone/Acetaminophen (*Crx) 5-325 Mg Tablet PO 1 tab Q4H PRN Administration Pain Rated 4-6 Albuterol/Ipratropium 3 ml 07/28/24 11:50 Ipratropium 0.5 Mg/Albuterol Sulfate 2.5 Mg Ampul.Neb 3 Ml INHALATION Q6HRT PRN wheezing Amiodarone HCl 200 mg 07/29/24 11:00 07/31/24 08:57 Amiodarone Hcl 200 Mg Tablet PO 200 mg DAILY@0800 LAURA Administration Amoxicillin/Clavulanate Potassium 1 tablet 07/28/24 21:00 07/31/24 08:55 Amoxicillin/Clavulanate K 875-125 Mg Tab PO 1 tablet Q12HR LAURA Administration Apixaban 2.5 mg 07/28/24 21:00 07/31/24 08:54 Apixaban 2.5 Mg Tablet PO 2.5 mg Q12HR LAURA Administration Ascorbic Acid 500 mg 07/28/24 09:00 07/31/24 08:55 Ascorbic Acid 500 Mg Tablet PO 500 mg DAILY LAURA Administration Dextrose 12.5 gm 07/26/24 19:51 Dextrose 50% 25 Gm/50 Ml Syringe IV PUSH PRN PRN Hypoglycemia Protocol Doxycycline Hyclate 100 mg 07/28/24 21:00 07/31/24 08:54 Doxycycline Hyclate 100 Mg Tablet PO 100 mg Q12HR LAURA Administration Famotidine 20 mg 07/28/24 09:00 07/31/24 08:54 Famotidine 20 Mg Tablet PO 20 mg DAILY LAURA Administration Furosemide 80 mg 07/28/24 09:00 07/30/24 08:47 Furosemide 80 Mg Tablet PO 80 mg DAILY LAURA Administration Gabapentin 200 mg 07/27/24 21:00 07/31/24 08:52 Gabapentin 100 Mg Capsule PO 200 mg Q12HR LAURA Administration Glucagon 1 mg 07/26/24 19:51 Glucagon For Inj 1 Mg Vial IM PRN PRN Hypoglycemia Protocol Glucose 15 gm 07/26/24 19:51 Glucose Oral Gel 15 Gm Of Glucse In 37.5 Gm Tube PO PRN PRN Hypoglycemia Protocol Dextrose 1,000 mls @ 100 mls/hr 07/26/24 19:51 Dextrose 5% 1,000 Ml IVPB PRN PRN Hypoglycemia Protocol Sodium Chloride 1,000 mls @ 70 mls/hr 07/30/24 09:15 07/31/24 02:36 Normal Saline Iv IV CONT 70 mls/hr .[id number] LAURA Administration Insulin Aspart 3 - 6 units 07/27/24 08:00 07/31/24 11:37 Insulin Aspart (*Bkc) 100 Units/Ml SUB-Q Not Given TIDWM LAURA Protocol Insulin Aspart 1 - 3 units 07/26/24 21:00 07/30/24 20:04 Insulin Aspart (*Bkc) 100 Units/Ml SUB-Q Not Given HS LAURA Protocol Latanoprost 1 drop 07/27/24 21:00 07/30/24 20:03 Latanoprost 0.005% Op Soln 2.5 Ml Btl EACH EYE 1 drop HS LAURA Administration Metoprolol Tartrate 25 mg 07/28/24 13:00 07/31/24 08:57 Metoprolol Tartrate 25 Mg Tablet PO 25 mg Q12HR LAURA Administration Pantoprazole Sodium 40 mg 07/27/24 21:00 07/31/24 08:55 Pantoprazole 40 Mg Tablet PO 40 mg Q12HR LAURA Administration Ropinirole HCl 0.5 mg 07/27/24 21:00 07/30/24 20:03 Ropinirole Hcl 0.5 Mg Tablet PO 0.5 mg HS LAURA Administration Tamsulosin HCl 0.4 mg 07/28/24 09:00 07/31/24 08:54 Tamsulosin Hcl 0.4 Mg Capsule PO 0.4 mg DAILY LAURA Administration Vitamin D 5,000 units 07/28/24 09:00 07/31/24 08:54 Cholecalciferol 5,000 Units Tablet BY MOUTH 5,000 units DAILY LAURA Administration Radiology Results: ITS Impressions Chest CTA 07/26/24 18:40 IMPRESSION: No evidence of pulmonary embolism Bibasilar lower lobe and lingular infiltrate or atelectasis Chest X-Ray 07/29/24 13:09 IMPRESSION: 1. Mild elevation of the left hemidiaphragm with left basilar opacities which could represent associated atelectasis and/or pneumonia. Femur X-Ray 07/31/24 16:09 IMPRESSION: 1: NO ACUTE BONE OR JOINT ABNORMALITY IDENTIFIED. Hip X-Ray 07/31/24 16:11 Impression: 1: Mild bilateral symmetric osteoarthritis of the hips. Tibia/Fibula X-Ray 07/31/24 16:12 IMPRESSION: 1: NO ACUTE BONE OR JOINT ABNORMALITY IDENTIFIED. Head CT 07/31/24 16:17 IMPRESSION: No acute intracranial findings. Labs Labs: Laboratory Results - last 24 hr 07/30/24 07/30/24 07/31/24 16:47 19:32 05:15 WBC 11.8 H RBC 3.95 L Hgb 12.1 L Hct 36.8 L MCV 93.2 MCH 30.6 MCHC 32.9 RDW 12.6 Plt Count 257 MPV 10.7 H Immature Gran % (Auto) 0.9 H Neut % (Auto) 66.0 Lymph % (Auto) 18.4 [place] % (Auto) 9.2 H Eos % (Auto) 5.0 H Baso % (Auto) 0.5 Lymph # (Auto) 2.16 [place] # (Auto) 1.1 H Eos # (Auto) 0.6 H Baso # (Auto) 0.1 Abs Immat Gran (auto) 0.11 H Absolute Neuts (auto) 7.8 H Absolute Nucleated RBC 0.000 Nucleated RBC % 0.0 Sodium 137 Potassium 3.4 Chloride 99 Carbon Dioxide 28 Anion Gap 10 BUN 32 H Creatinine 2.03 H Estim Creat Clear Calc 28 Estimated GFR 32 L Glucose 138 H POC Capillary Glucose 189 H 137 H Calcium 8.7 Total Bilirubin 0.8 AST 36 ALT 58 H Alkaline Phosphatase 85 Total Protein 7.0 Albumin 3.6 07/31/24 07/31/24 08:36 11:10 WBC RBC Hgb Hct MCV MCH MCHC RDW Plt Count MPV Immature Gran % (Auto) Neut % (Auto) Lymph % (Auto) [place] % (Auto) Eos % (Auto) Baso % (Auto) Lymph # (Auto) [place] # (Auto) Eos # (Auto) Baso # (Auto) Abs Immat Gran (auto) Absolute Neuts (auto) Absolute Nucleated RBC Nucleated RBC % Sodium Potassium Chloride Carbon Dioxide Anion Gap BUN Creatinine Estim Creat Clear Calc Estimated GFR Glucose POC Capillary Glucose 137 H 144 H Calcium Total Bilirubin AST ALT Alkaline Phosphatase Total Protein Albumin Hospitalist MIPS Advance Care Plan I have confirmed that the patient's Advanced Care Plan is present, code status is documented, or surrogate decision maker is listed in patient medical record.: Yes Medication Reconciliation I have utilized all available resources to obtain, update and review the patients current medications (includes all prescriptions, OTC, herbals, cannabis, and nutritional supplements).: Yes
[2024-07-31 17:21] LABS: Glucose Point of Care 147 mg/dl (65-105)
[2024-07-31 19:44] VITALS: BP 146/69; PULSE 78; RESP 20; TEMP 37; O2SAT 96
[2024-07-31 20:33] LABS: Glucose Point of Care 135 mg/dl (65-105)
[2024-07-31 20:35] VITALS: PULSE 84
[2024-07-31] MEDS: rOPINIRole HCL 0.5 MG TABLET PO (20:35)
[2024-07-31] MEDS: LATANOPROST 0.005% OP SOLN 2.5 ML BTL 1 DROP EACH EYE (20:39)
[2024-08-01 05:00] VITALS: BP 160/62; PULSE 65; RESP 20; TEMP 36.6; O2SAT 94
[2024-08-01 05:54] LABS: Basophils Absolute Auto 0.1 K/mm3 (0.0-0.1); Basophils Percent Auto 0.6 % (0.2-1.2); Eosinophils Absolute Auto 0.5 K/mm3 (0-0.3); Eosinophils Percent Auto 5.2 % (0-4.4); Hematocrit 36.7 % (42.0-52.0); Hemoglobin 11.9 g/dL (14.0-18.0); Immature Granulocyte Absolute 0.15 K/mm3 (0.00-0.031); Immature Granulocyte Percent A 1.4 % (0-0.5); Lymphocytes Absolute Auto 2.12 K/mm3 (0.9-3.2); Lymphocytes Percent Auto 20.5 % (18.3-44.2); Mean Corpuscular HGB Conc 32.4 g/dl (32-36); Mean Corpuscular Hemoglobin 30.6 pg (26-34); Mean Corpuscular Volume 94.3 fl (80-100); Mean Platelet Volume 10.5 fl (7.4-10.4); Monocytes Percent Auto 9.7 % (2.6-8.5); Neutrophils Absolute Auto 6.5 K/mm3 (1.3-6.7); Neutrophils Percent Auto 62.6 % (45.5-73.1); Platelet Count Result 260 k/mm3 (150-375); Red Blood Count 3.89 M/mm3 (4.6-6.20); Red Cell Distribution Width 12.5 % (11.5-14.5); White Blood Count 10.4 K/mm3 (4.5-10.0)
[2024-08-01 06:08] LABS: Alanine Aminotransferase 57 U/L (6-50); Albumin Level 3.4 g/dL (3.5-5.1); Alkaline Phosphatase 84 U/L (38-126); Anion Gap 10 mmol/L (4-12); Aspartate Amino Transferase 34 U/L (17-59); Bilirubin,Total 0.7 mg/dL (0.2-1.3); Blood Urea Nitrogen 26 mg/dL (9-20); Calcium 8.5 mg/dL (8.4-10.2); Carbon Dioxide 28 mmol/L (22-30); Chloride 100 mmol/L (98-107); Estimated CRCL calculation 30 ml/min; Estimated Glomerular Filt Rate 35; Glucose 118 mg/dL (65-110); Potassium 3.7 mmol/L (3.4-5.0); Sodium 138 mmol/L (137-145)
--- NOTE | 2024-08-01 07:28 | P.DS_ITS ---
DS: Admitting Diagnosis Discharge Date 08/01/2024 Admitting Diagnosis Chest pain and SOB DS: Discharge Diagnosis Discharge Diagnosis (1) Sepsis: Code(s): A41.9 - Sepsis, unspecified organism Status: Acute Assessment and Plan: Resolved * Patient initially meeting sepsis criteria with heart rate of 128, tachypneic 24, white blood cell count 17.6, lactic acid 4.0> 2.1> 1.3, chest x-ray showing pneumonia * Blood cultures were obtained and showing no growth to date on preliminary read * Continue Rocephin and Azithromycin * MRSA negative * Patient was given 1L NS with improvement in his HR, RR, and lactic acid level came back down to baseline * Blood cultures showing no growth to date on preliminary read. * Urine culture is negative * Will change to Augmentin and Doxycycline (2) Pneumonia: Code(s): J18.9 - Pneumonia, unspecified organism Status: Acute Assessment and Plan: Resolved * Chest x-ray showing pneumonia * Chest CTA showing pneumonia * S/P Rocephin and azithromycin * MRSA negative * Blood culture showing no growth to date on preliminary read * Currently on room air, keep O2 sat greater than 92% * Continue DuoNeb * Transitioned to Augmentin and Doxycycline oral until 08/02/2024 * Blood cultures showing no growth. * Duonebs PRN (3) Atrial fibrillation with RVR: Code(s): I48.91 - Unspecified atrial fibrillation Status: Acute Assessment and Plan: Call by bedside nurse yesterday that patient's heart rate went up to 140. We got EKG which confirmed that the patient was in AFib RVR which looks like new onset. Patient was transferred to IMU for further monitoring * Currently AFib with a rate of 90-105 * Cardiology consulted * Patient started on Eliquis * Echocardiogram shows Left ventricular systolic function is normal, estimated at 50-55% * Continuous telemetry monitoring Amiodarone drip has stopped and started Amiodarone 200 mg PO QD and Metoprolol 25 mg PO BID. (4) CKD (chronic kidney disease), stage III: Code(s): N18.3 - Chronic kidney disease, stage 3 (moderate) Status: Acute Assessment and Plan: * Creatinine 1.81, EGFR 36 * Appears to be at patient's baseline, over the past year he has been ranging 1.60-2.00 * Continue to trend * Hold Lasix 80 mg p.o. q.d. * Will discharge with Lasix 40 mg PO QD. * Status post gentle fluid resuscitation (5) Hyperlipidemia: Qualifiers: Hyperlipidemia type: other hyperlipidemia Qualified Code(s): E78.49 - Other hyperlipidemia Code(s): E78.5 - Hyperlipidemia, unspecified Status: Acute Assessment and Plan: * Continue aspirin (6) Essential hypertension: Code(s): I10 - Essential (primary) hypertension Status: Acute Assessment and Plan: * Blood pressure ranging 108/66 to 112/70 * Patient not currently on any blood pressure medication * Continue to trend (7) Type 2 diabetes mellitus: Qualifiers: Diabetes mellitus complication detail: with unspecified neuropathy Diabetes mellitus complication status: with neurologic complications Diabetes mellitus terminal system operator insulin use: without terminal system operator use Qualified Code(s): E11.40 - Type 2 diabetes mellitus with diabetic neuropathy, unspecified Code(s): E11.9 - Type 2 diabetes mellitus without complications Status: Acute Assessment and Plan: * Blood sugars ranging 132-175 * Hgb A1C 6.9 on 04/15/2024 * Accu checks AC/HS * Moderate dose SSI ordered * Will continue glipizide during discharge * hypoglycemic protocol in place * Diabetic diet ordered (8) Gastroesophageal reflux disease: Code(s): K21.9 - Gastro-esophageal reflux disease without esophagitis Status: Acute Assessment and Plan: * Continue Pepcid and Protonix (9) COPD (chronic obstructive pulmonary disease): Code(s): J44.9 - Chronic obstructive pulmonary disease, unspecified Status: Acute Assessment and Plan: * Continue DuoNebs PRN DS: Summary Hospital Course Hospital Course: 84-year-old male past medical history of CKD stage 3, COPD, GERD, hyperlipidemia, type 2 diabetes, restless leg syndrome and pulmonary asbestosis presented to ED on account of chest pain and shortness of breath. Patient placed on having shortness of breath and chest pain and a prior to presentation, described chest pain as a sharp and with a point tenderness. Denies any fever no coughing no vomiting abdominal pain no diarrhea no dysuria no focal symptoms. ER evaluation notable for tachycardia with a heart rate 109, tachypnea respiratory 24, blood pressure 111/81, saturation 98% on room air. Labs notable for WBC 17.6, ABG 7.458/33.6/64.3/23.3, lactic acid is 4.0, troponin negative. Flu COVID RSV pending. CT chest showed bilateral infiltrates. EKG showed sinus tachycardia. Assumed care 0 07/29: Patient has been treated for pneumonia initially with Rocephin and azithromycin later changed to Augmentin and doxycycline until 08/02. In regards to AFib and chest pain cardiology evaluated the patient and to initially started on amiodarone drip which was later changed to amiodarone 200 mg p.o. q.d. and metoprolol 25 mg b.i.d. and started on Eliquis 2.5 mg b.i.d. due to age and renal function. Patient has a chronic CKD and needs to follow-up with the crosstie inspector. The echocardiogram shows 50-55% left ventricular ejection fraction. Reducing the dose of Lasix from 80 mg p.o. q.d. to 40 mg p.o. q.d. due to decreased renal function and dehydration. Patient can follow- up with the PCP/oracle business analyst and increase or decrease the dose of Lasix if needed. Patient initially was about discharged yesterday but would due to ground level fall on right side held the discharge. The hip x-ray including femur, tibia and fibula and head CT shows no significant finding. Status at Discharge Cognitive/behavioral status at discharge: Stable Time Spent with Patient Time attestation: Total time spent providing and/or coordinating discharge services: 45 minute Exam Narrative: General: In no acute distress, well nourished Cardiac: Normal S1 and S2. No murmur, gallops or friction rubs, peripheral pulses intact. Respiratory: Lungs clear, no adventitious lung sounds, currently on room air. Denies cough Gastrointestinal: soft, non-distended, non-tender, normoactive bowel sounds. : voiding without difficulty. Neuro: Alert and oriented x3 DS: Data Data Completed and Pending Labs on day of discharge: Labs from last 24 hours 08/01/24 07/31/24 07/31/24 05:27 19:48 16:59 WBC 10.4 H RBC 3.89 L Hgb 11.9 L Hct 36.7 L MCV 94.3 MCH 30.6 MCHC 32.4 RDW 12.5 Plt Count 260 MPV 10.5 H Immature Gran % (Auto) 1.4 H Neut % (Auto) 62.6 Lymph % (Auto) 20.5 [place] % (Auto) 9.7 H Eos % (Auto) 5.2 H Baso % (Auto) 0.6 Lymph # (Auto) 2.12 [place] # (Auto) 1.0 H Eos # (Auto) 0.5 H Baso # (Auto) 0.1 Abs Immat Gran (auto) 0.15 H Absolute Neuts (auto) 6.5 Absolute Nucleated RBC 0.000 Nucleated RBC % 0.0 Sodium 138 Potassium 3.7 Chloride 100 Carbon Dioxide 28 Anion Gap 10 BUN 26 H Creatinine 1.86 H Estim Creat Clear Calc 30 Estimated GFR 35 L Glucose 118 H POC Capillary Glucose 135 H 147 H Calcium 8.5 Total Bilirubin 0.7 AST 34 ALT 57 H Alkaline Phosphatase 84 Total Protein 7.0 Albumin 3.4 L 07/31/24 07/31/24 11:10 08:36 WBC RBC Hgb Hct MCV MCH MCHC RDW Plt Count MPV Immature Gran % (Auto) Neut % (Auto) Lymph % (Auto) [place] % (Auto) Eos % (Auto) Baso % (Auto) Lymph # (Auto) [place] # (Auto) Eos # (Auto) Baso # (Auto) Abs Immat Gran (auto) Absolute Neuts (auto) Absolute Nucleated RBC Nucleated RBC % Sodium Potassium Chloride Carbon Dioxide Anion Gap BUN Creatinine Estim Creat Clear Calc Estimated GFR Glucose POC Capillary Glucose 144 H 137 H Calcium Total Bilirubin AST ALT Alkaline Phosphatase Total Protein Albumin Preliminary micro results at discharge 07/26/24 20:54 Blood Culture - Preliminary Blood 07/26/24 20:15 Blood Culture - Preliminary Blood Discharge Plan Discharge Attending physician on discharge: Nuno Melendez Consulting providers: Alan Aguilera Discharging Clinician: Nuno Melendez Anticipated Discharge Date/Time: 07/31/24 12:58 Patient Disposition: Home Health Service Activity: as tolerated Diet: heart healthy Discharge Instructions: Per Care Coordination. Patient to have [place] for RN/PT/OT eval and treat P: [phone]. RN please fax discharge instructions to: F: . Please complete your antibiotic course even if you are starting to feel well. Take precautions to avoid falls. Rise slowly from a lying or sitting position. Pause before standing or walking. Check daily morning weights after voiding. Daily weights, if you gain more than 3lb within 1 day or 5 lbs in 1 week please follow up with [facility]. Contact your doctor or call 911 and come to the Emergency Room if you have lightheadedness with standing or other worrisome symptoms. Avoid NSAIDs (ibuprofen, naproxen, Aleve). Tylenol is safe to take. Follow-up with your primary care provider in 1-2 weeks. Please call for appointment. Follow-up with oracle business analyst and crosstie inspector in 2-3 weeks. Please call for an appointment. Patient Instructions: Antibiotic Form, Apixaban (By mouth) Patient Language: Mohawk Stand Alone Forms: General Discharge Information Follow-up/Referrals: Alan Aguilera MD [Physician] - Krunal Gambino APRN [Primary Care Provider] - Discharge Medications: New amiodarone [Pacerone] 200 mg Tablet 200 mg PO DAILY@0800 Qty: 30 0RF doxycycline hyclate 100 mg Tablet 100 mg PO Q12HR Qty: 6 0RF Rx Instructions: Please complete the course on 08/02/2024 Eliquis 2.5 mg Tablet 2.5 mg PO Q12HR Qty: 30 0RF metoprolol tartrate 25 mg Tablet 25 mg PO Q12HR Qty: 30 0RF furosemide [Lasix] 40 mg tablet 40 mg PO DAILY PRN (Reason: edema) Qty: 30 0RF amoxicillin-pot clavulanate 875-125 mg tablet 1 tablet PO Q12H Qty: 7 0RF Continued zinc acetate 50 mg (zinc) capsule 50 mg PO DAILY cholecalciferol (vitamin D3) 125 mcg (5,000 unit) capsule 125 mcg PO DAILY ascorbic acid (vitamin C) 500 mg capsule 500 mg PO DAILY Spiriva Respimat 2.5 mcg/actuation mist 2 puff INHALATION DAILY Qty: 4 5RF glipizide 5 mg tablet 5 mg PO DAILY Qty: 90 1RF cyclobenzaprine 5 mg tablet See Rx Instructions .ROUTE .COMPLEX Qty: 30 0RF Dose Instruction: TAKE 1 TABLET BY MOUTH THREE TIMES A DAY NEEDED FOR MUSCLE SPASM Rx Instructions: TAKE 1 TABLET BY MOUTH THREE TIMES A DAY NEEDED FOR MUSCLE SPASM latanoprost 0.005 % drops 1 drp EACH EYE HS benzonatate 200 mg capsule 200 mg PO TID PRN (Reason: cough) Qty: 30 0RF gabapentin 100 mg capsule 200 mg PO BID Qty: 120 5RF potassium chloride 20 mEq tablet extended release 20 meq PO DAILY Qty: 90 1RF tamsulosin 0.4 mg capsule 0.4 mg PO DAILY Qty: 90 1RF Rx Instructions: TAKE 1 CAPSULE BY MOUTH EVERY DAY famotidine 20 mg tablet 20 mg PO DAILY Qty: 90 1RF diclofenac sodium 1 % gel 2 g topical QID Qty: 100 1RF triamcinolone acetonide 0.1 % cream See Rx Instructions .ROUTE .COMPLEX Qty: 80 1RF Dose Instruction: 1 APPLIC TOPICALLY TWICE A DAY NEEDED FOR DERMATITIS APPLY TO LEFT LOWER LEG ONLY NEEDED Rx Instructions: 1 APPLIC TOPICALLY TWICE A DAY NEEDED FOR DERMATITIS APPLY TO LEFT LOWER LEG ONLY NEEDED albuterol sulfate 90 mcg/actuation HFA aerosol inhaler 2 inh inhalation QID PRN (Reason: shortness of breath or wheezing) Qty: 8.5 3RF meclizine 25 mg tablet See Rx Instructions .ROUTE .COMPLEX Qty: 90 1RF Dose Instruction: TAKE 1 TABLET BY MOUTH THREE TIMES A DAY NEEDED FOR DIZZINESS Rx Instructions: TAKE 1 TABLET BY MOUTH THREE TIMES A DAY NEEDED FOR DIZZINESS ropinirole 0.5 mg tablet See Rx Instructions .ROUTE .COMPLEX Qty: 90 1RF Dose Instruction: TAKE 1 TABLET BY MOUTH EVERYDAY AT BEDTIME Rx Instructions: TAKE 1 TABLET BY MOUTH EVERYDAY AT BEDTIME pantoprazole 40 mg tablet,delayed release (DR/EC) 40 mg PO BID Qty: 180 1RF Discontinued furosemide 80 mg tablet See Rx Instructions .ROUTE .COMPLEX Qty: 90 1RF Dose Instruction: TAKE 1 TABLET BY MOUTH EVERY DAY IN THE MORNING Rx Instructions: TAKE 1 TABLET BY MOUTH EVERY DAY IN THE MORNING Date of admission: 07/27/24 07:40 Primary Care Provider: Krunal Gambino Admitting Provider: Ysabel Packer Attending physician on admission: Demetra Kaye Condition: Stable
[2024-08-01 07:47] LABS: Glucose Point of Care 137 mg/dl (65-105)
[2024-08-01 09:56] VITALS: PULSE 65
[2024-08-01] MEDS: AMOXICILLIN/CLAVULANATE K 875-125 MG TAB 1 TABLET PO (09:56)
[2024-08-01] MEDS: METOPROLOL TARTRATE 25 MG TABLET PO (09:56)
[2024-08-01] MEDS: CHOLECALCIFEROL 5,000 UNITS TABLET 5000 UNITS BY MOUTH (09:57)
[2024-08-01] MEDS: GABAPENTIN 100 MG CAPSULE 200 MG PO (09:57)
[2024-08-01] MEDS: DOXYCYCLINE HYCLATE 100 MG TABLET PO (09:57)
[2024-08-01] MEDS: TAMSULOSIN HCL 0.4 MG CAPSULE PO (09:57)
[2024-08-01 09:58] VITALS: PULSE 65
[2024-08-01] MEDS: ASCORBIC ACID 500 MG TABLET PO (09:58)
[2024-08-01] MEDS: APIXABAN 2.5 MG TABLET PO (09:58)
[2024-08-01] MEDS: PANTOPRAZOLE 40 MG TABLET PO (09:58)
[2024-08-01] MEDS: FAMOTIDINE 20 MG TABLET PO (09:58)
[2024-08-01] MEDS: AMIODARONE HCL 200 MG TABLET PO (09:58)
[2024-08-01 11:50] LABS: Glucose Point of Care 136 mg/dl (65-105)
[2024-08-01 14:00] VITALS: BP 108/68; PULSE 64; RESP 18; TEMP 36.9; O2SAT 95
== END 2024-08-01 16:00 | disposition home health service (06) | DRG 194 ==
LOC: ANHED 19:20 → ANH3MEDSUR 20:45 → ANHIMU 07-29 15:10 → ANH3MED 07-30 08:54 → ANH3MEDSUR 08-04 11:18 → ANHIMU 08-04 11:18
PROVIDERS: Emergency Medicine; Internal Medicine; Nurse Practitioner Acute Care; Admitting Provider Internal Medicine; Emergency Provider Physician Assistant; PCP Nurse Practitioner; Visit Provider General Practice
DX: J18.9 Pneumonia, unspecified organism (principal); J44.0 Chronic obstructive pulmonary disease with (acute) lower respiratory infection; I48.91 Unspecified atrial fibrillation; E11.22 Type 2 diabetes mellitus with diabetic chronic kidney disease; I12.9 Hypertensive chronic kidney disease with stage 1 through stage 4 chronic kidney disease, or unspecified chronic kidney disease; N18.30 Chronic kidney disease, stage 3 unspecified; E11.42 Type 2 diabetes mellitus with diabetic polyneuropathy; E78.5 Hyperlipidemia, unspecified; G25.81 Restless legs syndrome; K21.9 Gastro-esophageal reflux disease without esophagitis
CPT/HCPCS: 36415; 36600; 70450; 71045; 71046; 71275; 73521; 73552; 73590; 80053; 81001; 82805; 82948; 83605; 83690; 83735; 83880; 84443; 84484; 85018; 85025; 85610; 85730; 87040; 87086; 87637; 87641; 93005; 93306; 94640; 94762; 96361; 96365; 97110; 97161; 97166; 97530; 97535; 99285; A9270; G0378; J0282; J0456; J0696; J1650; J7030; Q9967